=== PATIENT | male | born 1970 | race Caucasian/White ===

== ENCOUNTER 2017-06-20 15:29 | Inpatient (IN) | payer SELFPAY ==
[~2017-06-20] VITALS: Ht 167.6 cm; Wt 89.7 kg
[~2017-06-20 15:29] MED LIST: LEVE500 PO; LIOT25 PO
[2017-06-20 16:58] VITALS: BP 129/76; PULSE 78; RESP 20; TEMP 98; O2SAT 96
[2017-06-20] MEDS ORDERED: SODIUM CHLOR 0.9% 1000 ML INJ 1,000 ML IV SCH (17:19)
--- NOTE | 2017-06-20 17:35 | PD ---
HPI Chief Complaint: Alcohol/Drug Intoxication Time Seen by Provider: 17:15 Travel History International Travel<30 days: No Contact w/Intl Traveler<30days: No Traveled to known affect area: No History of Present Illness HPI 47-year-old male that presents to the ED for evaluation of possible alcohol intoxication. Patient is clearly intoxicated and states that he's been drinking a lot of alcohol today. Patient continues to tell me "Sorry boss "every time I ask him a question. He does not appear to be in acute distress. He is somewhat lethargic but easily arousable. Denies any other substance abuse. Denies any falls or injuries. He does have a history of subarachnoid hemorrhage in 2015. Patient does appear to have an abrasion to his right elbow but he does not know how he got this. He does not know if he hit his head and he is not really good historian as to what brought him here. From the report that was given by the ED nurse apparently he was found intoxicated but they really didn't give anymore history. Patient himself does not appear to be in acute distress. Again history is limited because of patient's intoxication. He denies any suicidal or homicidal ideation. PFSH Past Medical History Arthritis: No Blood Disorders: No Cancer: No Cardiovascular Problems: No Diminished Hearing: No Endocrine: No Genitourinary: No Hypertension: Yes Immune Disorder: No Musculoskeletal: Yes Neurologic: No Psychiatric: No Reproductive: No Respiratory: No Past Surgical History Abdominal Surgery: No AICD: No Arteriovenous Shunt: No Cardiac Surgery: No Ear Surgery: No Endocrine Surgery: No Eye Surgery: No Genitourinary Surgery: No Gynecologic Surgery: No Insulin Pump: No Joint Replacement: No Oral Surgery: No Pacemaker: No Thoracic Surgery: No Other Surgery: Yes Social History Alcohol Use: Yes Tobacco Use: No (quit 10 yrs ago) Substance Use: No Allergies-Medications (Allergen,Severity, Reaction): Coded Allergies: No Known Allergies (Verified , 06/20/17) Reported Meds & Prescriptions Reported Meds & Active Scripts Active No Active Prescriptions or Reported Medications Review of Systems ROS Limitations: Poor Historian Except as stated in HPI: all other systems reviewed are Neg Physical Exam Exam Limitations: Poor Historian Narrative GENERAL: SKIN: Warm and dry. HEAD: Atraumatic. Normocephalic. EYES: Pupils equal and round 4 mm reactive to light and accommodation. No scleral icterus. No injection or drainage. ENT: No nasal bleeding or discharge. Mucous membranes pink and moist.Tongue is midline. No uvula deviation. NECK: Trachea midline. No JVD. CARDIOVASCULAR: Regular rate and rhythm. No murmurs, S3, S4. RESPIRATORY: No accessory muscle use. Clear to auscultation. Breath sounds equal bilaterally. GASTROINTESTINAL: Abdomen soft, non-tender, nondistended. Hepatic and splenic margins not palpable. MUSCULOSKELETAL: Extremities without clubbing, cyanosis, or edema. No obvious deformities. Full range of motion of the upper and lower extremities bilaterally. 2+ pulses bilaterally. NEUROLOGICAL: Awake and alert. No obvious cranial nerve deficits. Motor grossly within normal limits. Five out of 5 muscle strength in the arms and legs. Normal speech. PSYCHIATRIC: Appropriate mood and affect; insight and judgment normal. Data Data Last Documented VS Vital Signs Date Time Temp Pulse Resp B/P (MAP) Pulse Ox O2 Delivery O2 Flow Rate FiO2 06/20/17 18:29 97.9 82 18 132/68 (89) 98 Room Air Orders Orders Complete Blood Count With Diff (06/20/17 17:18) Comprehensive Metabolic Panel (06/20/17 17:18) Ct Brain W/O Iv Contrast(Rout) (06/20/17 17:18) Alcohol (Ethanol) (06/20/17 17:18) Sodium Chlor 0.9% 1000 Ml Inj (Ns 1000 M (06/20/17 17:19) Coag Profile (06/20/17 18:44) Admit Order (Ed Use Only) (06/20/17 18:52) Labs Laboratory Tests Test 06/20/17 17:44 White Blood Count 11.2 TH/MM3 Red Blood Count 4.40 MIL/MM3 Hemoglobin 13.7 GM/DL Hematocrit 42.8 % Mean Corpuscular Volume 97.4 FL Mean Corpuscular Hemoglobin 31.2 PG Mean Corpuscular Hemoglobin Concent 32.0 % Red Cell Distribution Width 13.5 % Platelet Count 215 TH/MM3 Mean Platelet Volume 7.0 FL Neutrophils (%) (Auto) 83.4 % Lymphocytes (%) (Auto) 11.4 % Monocytes (%) (Auto) 4.1 % Eosinophils (%) (Auto) 0.7 % Basophils (%) (Auto) 0.4 % Neutrophils # (Auto) 9.3 TH/MM3 Lymphocytes # (Auto) 1.3 TH/MM3 Monocytes # (Auto) 0.5 TH/MM3 Eosinophils # (Auto) 0.1 TH/MM3 Basophils # (Auto) 0.0 TH/MM3 CBC Comment DIFF FINAL Differential Comment Blood Urea Nitrogen 11 MG/DL Creatinine 0.98 MG/DL Random Glucose 103 MG/DL Total Protein 7.8 GM/DL Albumin 3.7 GM/DL Calcium Level 7.3 MG/DL Alkaline Phosphatase 60 U/L Aspartate Amino Transf (AST/SGOT) 37 U/L Alanine Aminotransferase (ALT/SGPT) 28 U/L Total Bilirubin 0.2 MG/DL Sodium Level 143 MEQ/L Potassium Level 3.8 MEQ/L Chloride Level 110 MEQ/L Carbon Dioxide Level 24.2 MEQ/L Anion Gap 9 MEQ/L Estimat Glomerular Filtration Rate 81 ML/MIN Protein Corrected Calcium 7.0 MG/DL Ethyl Alcohol Level 393 MG/DL [facility] Medical Decision Making Medical Screen Exam Complete: Yes Emergency Medical Condition: Yes Medical Record Reviewed: Yes Interpretation(s) CBC & BMP Diagram 06/20/17 17:44 Total Protein 7.8, Albumin 3.7, Calcium Level 7.3 *L, Alkaline Phosphatase 60, Aspartate Amino Transf (AST/SGOT) 37, Alanine Aminotransferase (ALT/SGPT) 28, Total Bilirubin 0.[address] 06/20/17 1718 Signed Impressions: Service Date/Time: Friday, June 20, 2017 18:00 - CONCLUSION: Right frontal acute subdural and parenchymal hemorrhage. Generalized but mostly right cerebral hemisphere sulcal subarachnoid blood. No measurable midline shift. Freddy Romo MD Differential Diagnosis Alcohol intoxication versus head injury versus weakness versus chronic alcoholic Narrative Course 47-year-old male that presents to the ED for evaluation of possible alcohol intoxication. History is somewhat limited because of patient's intoxication and he is easily arousable. He does have a history of head bleed secondary to trauma. There is no really good history as to call patient was found and whether he had any fall. He does have a history to cranial hemorrhage. He appears to be neurovascular intact but again he is also intoxicated. At this time I recommend labs and imaging to make sure patient does not have any acute head injury. Patient was given IV fluids. Labs and imaging here showed what appears to be subdural hematoma with swelling or hemorrhage. Patient does not really have any signs of trauma to the head and appears to be oriented. He does not appear to have any neurological deficits but again his exam is difficult because he does also smells of alcohol and appears to be intoxicated. Labs also show elevated alcohol in the 390s. Case was discussed immediately with my attending Dr. Crawley evaluated the patient with me and recommends admission and neurosurgical consult. I spoke with Dr. Hair who agrees to consult on the patient and admit to waiter/waitress captain. Dr Garcia agrees to admit. Diagnosis Primary Impression: Intracerebral bleed due to trauma Qualified Codes: S06.369A - Traumatic hemorrhage of cerebrum, unspecified, with loss of consciousness of unspecified duration, initial encounter Additional Impression: Alcohol intoxication Qualified Codes: F10.920 - Alcohol use, unspecified with intoxication, uncomplicated Admitting Information Admitting Physician Requests: Admit Scripts No Active Prescriptions or Reported Meds Vasquez Lala Jun 20, 2017 17:35
[2017-06-20 17:58] LABS: AUTOMATED NEUTROPHIL # 9.3 TH/MM3 (1.8-7.7); BASOPHIL % 0.4 % (0.0-2.0); EOSINOPHIL # 0.1 TH/MM3 (0-0.4); EOSINOPHIL % 0.7 % (0.0-4.0); HEMATOCRIT 42.8 % (39.0-51.0); HEMO FLAGS DIFF FINAL; LYMPH % 11.4 % (9.0-44.0); LYMPHOCYTE # 1.3 TH/MM3 (1.0-4.8); MEAN CELL VOLUME 97.4 FL (80.0-100.0); MEAN CORPUSCULAR HEMOGLOBIN 31.2 PG (27.0-34.0); MONO % 4.1 % (0.0-8.0); NEUT % 83.4 % (16.0-70.0); PLATELET COUNT 215 TH/MM3 (150-450); RED CELL DISTRIBUTION WIDTH 13.5 % (11.6-17.2); WHITE BLOOD COUNT 11.2 TH/MM3 (4.0-11.0)
--- NOTE | 2017-06-20 18:13 | RADRPT ---
EXAM DATE/TIME: 06/20/2017 18:00 [facility] COMPARISON: CT BRAIN W/O CONTRAST, October 24, 2015, 12:41. INDICATIONS : Altered mental status, possible fall RADIATION DOSE: 31.25 CTDIvol (mGy) MEDICAL HISTORY : Hypertension. SURGICAL HISTORY : None. ENCOUNTER: Initial ACUITY: 1 day PAIN SCALE: Non-responsive LOCATION: Bilateral cranial TECHNIQUE: Multiple contiguous axial images were obtained of the head. Using automated exposure control and adj ustment of the mA and/or kV according to patient size, radiation dose was kept as low as reasonably a chievable to obtain optimal diagnostic quality images. DICOM format image data is available electro nically for review and comparison. FINDINGS: There is multifocal acute intracranial hemorrhage. There is a right frontal subdural hemorrhage that measures up to 7 mm in maximal thickness. There is patchy small foci of parenchymal hemorrhage of the right frontal lobe, mostly inferiorly and anteriorly. There is diffuse right cerebral hemisphere sul ci subarachnoid blood and also subarachnoid blood imaging the leaves of the falx and the tentorium. No measurable midline shift. No mass lesion seen. No evidence of an acute ischemic event. The skull i s intact. CONCLUSION: Right frontal acute subdural and parenchymal hemorrhage. Generalized but mostly right cerebral hemisp here sulcal subarachnoid blood. No measurable midline shift. Freddy Romo MD on June 20, 2017 at 18:08 Board Certified Radiologist. This report was verified electronically.
[2017-06-20 18:29] VITALS: BP 132/68; PULSE 82; RESP 18; TEMP 97.9; O2SAT 98
[2017-06-20 18:32] LABS: BICARBONATE 24.2 MEQ/L (21.0-32.0); POTASSIUM 3.8 MEQ/L (3.5-5.1); TOTAL BILIRUBIN ADULT 0.2 MG/DL (0.2-1.0)
--- NOTE | 2017-06-20 19:59 | PD.CONS ---
HPI Service Neurosurg Consult Requested By Frankie Garcia Reason for Consult TBI, SDH Primary Care Physician Unknown History of Present Illness This is a 47-year-old male presents due to alcohol intoxication and headache. he is obviously intoxicated and states that he's been drinking a lot of alcohol today. Patient continues to tell me "Sorry boss I have not been behaving " every time he is spoken to. He is very confused. No seizure activity. No tongue biting. No lacerations. No incontinence of stool or urine. He has a history of traumatic subarachnoid hemorrhage in 2015. Patient does appear to have an abrasion to his right elbow but he does not know how he got this. The CT scan of the head revealed traumatic subarachnoid, subdural and interfissural bleed. He is moving all 4 extremities without any focal deficit. There is no sensory loss. He denies neck pain or back pain. Neurosurgical consultation was requested Review of Systems Unobtainable patient's heavily intoxicated Past Family Social History Allergies: Coded Allergies: No Known Allergies (Verified , 06/20/17) Past Medical History Unobtainable patient's heavily intoxicated Prior head injury. Alcohol abuse Reported Medications Unobtainable patient's heavily intoxicated He denies taking any medications Active Ordered Medications Current Medications Sodium Chloride 1,000 ml @ 1,000 mls/hr Q1H IV Last administered on 06/20/17 18:28; Start 06/20/17 at 17:19; Stop 06/20/17 at 18:18; Status DC Sodium Chloride 1,000 ml @ 84 mls/hr [id number] IV Last administered on 08:56; Start 06/20/17 at 20:20 Sodium Chloride (NS Flush) 2 ml UNSCH PRN .XX FLUSH AFTER USING IV ACCESS; Start 06/20/17 at 20:30 Sodium Chloride (NS Flush) 2 ml BID .XX Last administered on 06/22/17 08:58; Start 06/20/17 at 21:00 Acetaminophen (Tylenol) 650 mg Q6H PRN PO PAIN 1-10 AND/OR FEVER >101F; Start 06/20/17 at 20:30 Morphine Sulfate (Morphine Inj) 2 mg Q2H PRN IV PAIN SCALE 6 TO 10; Start 06/20 at 20:30 Famotidine (Pepcid Inj) 20 mg Q12HR IV PUSH Last administered on 06/22/17 08: 57; Start 06/20/17 at 21:00 Ondansetron HCl (Zofran Inj) 4 mg Q6H PRN IV NAUSEA OR VOMITING Last administered on 06/22/17 08:57; Start 06/20/17 at 20:30 Albuterol/ Ipratropium (Duoneb Neb) 1 ampule Q2HR NEB PRN INH WHEEZING; Start 06/20/17 at 20:30 Miscellaneous Information 1 [id number] XX Last administered on 06/20/17 22:23; Start 06/20/17 at 20:30 Chlorhexidine Gluconate (Chlorhexidine 2% Cloth) 3 pack Taper DAILY@04 TOP Last administered on 06/22/17 04:00; Start 06/21/17 at 04:00; Stop 06/17/18 at 03:59 Chlorhexidine Gluconate (Chlorhexidine 2% Cloth) 3 pack UNSCH PRN TOP HYGIENIC CARE; Start 06/20/17 at 20:30 Senna/Docusate Sodium (Angela-Colace) 1 tab BID PO Last administered on 08:58; Start 06/20/17 at 21:00 Magnesium Hydroxide (Milk Of Magnesia Liq) 30 ml Q12H PRN PO MILD - MODERATE CONSTIPATION; Start 06/20/17 at 20:30 Sennosides (Senokot) 17.2 mg Q12H PRN PO MODERATE - SEVERE CONSTIPATION; Start 06/20/17 at 20:30 Bisacodyl (Dulcolax Supp) 10 mg DAILY PRN RECTAL SEVERE CONSITIPATION; Start at 20:30 Lactulose (Lactulose Liq) 30 ml DAILY PRN PO SEVERE CONSITIPATION; Start at 20:30 Potassium Chloride 100 ml @ 50 mls/hr Q2H PRN IV For Potassium 2.8 - 3.2 mEq/L ; Start 06/20/17 at 20:30 Potassium Chloride 100 ml @ 50 mls/hr Q2H PRN IV For Potassium 2.8 - 3.2 mEq/L ; Start 06/20/17 at 20:30 Potassium Bicarb/ Potassium Chloride (K-Lyte Cl Eff) 50 meq UNSCH PRN PO For Potassium 3.3 - 3.5 mEq/L; Start 06/20/17 at 20:30 Potassium Chloride 100 ml @ 25 mls/hr UNSCH PRN IV For Potassium 3.3 - 3.5 mEq /L; Start 06/20/17 at 20:30 Potassium Chloride 100 ml @ 50 mls/hr Q2H PRN IV For Potassium 3.3 - 3.5 mEq/L ; Start 06/20/17 at 20:30 Magnesium Sulfate 4 gm/Sodium Chloride 100 ml @ 50 mls/hr UNSCH PRN IV For Magnesium 0.9 - 1.1 mg/dL; Start 06/20/17 at 20:30 Magnesium Oxide (Mag-Ox) 800 mg UNSCH PRN PO For Magnesium 1.2 - 1.6 mg/dL; Start 06/20/17 at 20:30 Magnesium Sulfate 2 gm/Sodium Chloride 100 ml @ 50 mls/hr UNSCH PRN IV For Magnesium 1.2 - 1.6 mg/dL; Start 06/20/17 at 20:30 Potassium Phosphate (K-Phos) 2,000 mg Q4H PRN PO For Phosphorus < 2.5 mg/dL Last administered on 06/22/17t 13:07; Start 06/20/17 at 20:30 Sodium Phosphate 30 mmol/Sodium Chloride 250 ml @ 42 mls/hr UNSCH PRN IV For Phosphorus < 2.5 mg/dL; Start 06/20/17 at 20:30 Potassium Phosphate (K-Phos) 2,000 mg UNSCH PRN PO/TUBE SEE LABEL COMMENTS; Start 06/20/17 at 20:30 Potassium Phosphate 30 mmol/ Sodium Chloride 260 ml @ 42 mls/hr UNSCH PRN IV SEE LABEL COMMENTS; Start 06/20/17 at 20:30 Flumazenil (Romazicon Inj) 0.2 mg Q1M PRN IV PUSH SEE LABEL COMMENTS; Start at 20:45 Lorazepam (Ativan) 1 mg Q4H PRN PO CIWA 8 - 10; Start 06/20/17 at 20:45 Lorazepam (Ativan Inj) 1 mg Q4H PRN IV PUSH CIWA 8 - 10; Start 06/20/17 at 20: 45 Lorazepam (Ativan) 2 mg Q2H PRN PO CIWA 11-14; Start 06/20/17 at 20:45 Lorazepam (Ativan Inj) 2 mg Q2H PRN IV PUSH CIWA 11-14; Start 06/20/17 at 20:45 Lorazepam (Ativan Inj) 2 mg Q1H PRN IV PUSH CIWA 15-20; Start 06/20/17 at 20:45 Lorazepam (Ativan Inj) 2 mg Q15M PRN IV PUSH CIWA > 20; Start 06/20/17 at 20:45 Levetriacetam 500 mg/Sodium Chloride 105 ml @ 420 mls/hr Q12HR IV Last administered on 06/22/17 08:57; Start 06/20/17 at 21:00 Multivitamins 10 ml/Thiamine HCl 100 mg/Folic Acid 1 mg/Sodium Chloride 511.2 ml @ 125 mls/hr ONCE ONCE IV Last administered on 06/21/17 02:57; Start at 02:00; Stop 06/21/17 at 06:05; Status DC Calcium Gluconate 1 gm/Sodium Chloride 110 ml @ 110 mls/hr ONCE ONCE IV Last administered on 06/21/17 11:52; Start 06/21/17 at 10:45; Stop 06/21/17 at 11:44 ; Status DC Hydralazine HCl (Apresoline Inj) 10 mg Q4H PRN IV PUSH SBP>160, DBP>90 Last administered on 06/22/17 13:06; Start 06/22/17 at 10:45 Family History Unobtainable patient's heavily intoxicated Social History Unobtainable patient's heavily intoxicated Postoperative for at least alcohol abuse Physical Exam Vital Signs Vital Signs Date Time Temp Pulse Resp B/P (MAP) Pulse Ox O2 Delivery O2 Flow Rate FiO2 06/20/17 18:29 97.9 82 18 132/68 (89) 98 Room Air 06/20/17 16:58 98.0 78 20 129/76 (93) 96 Physical Exam The patient is alert, confused, oriented to self. Cranial nerve examination demonstrates the pupils to be equal, round, and reactive to light. Extra-ocular movements are intact with normal convergence. Facial motor function appears normal and symmetrical. Face sensation, hearing, visual thomas, and olfaction can not be assessed properly due to the patients condition. The patient has an intact corneal reflex and a gag reflex. Sternocleidomastoid and trapezius have normal and symmetrical strength. Other cranial nerves are intact. Neck is soft and supple. Cervical spine has a normal range of motion of the cervical spine without pain. There is no tenderness to palpation to the spinous processes or paraspinal muscles. Muscle testing reveals normal bulk and tone overall without rigidity, spasticity , fasciculations, or atrophy. Muscle strength is 5/5 in all muscle groups of both upper and lower extremities. Deep tendon reflexes are 1+ and symmetrical in the biceps, triceps, and brachioradialis, bilaterally, in the upper extremities. In the lower extremities , the patellar and Achilles are 1+, bilaterally. There is a bilateral plantar flexion response. Hoffmanns sign is negative. There is no clonus or other abnormal reflexes noted. Cerebellar examination is limited due to the patient condition, but no obvious deficits are noted. Laboratory Laboratory Tests Test 06/20/17 17:44 White Blood Count 11.2 Red Blood Count 4.40 Hemoglobin 13.7 Hematocrit 42.8 Mean Corpuscular Volume 97.4 Mean Corpuscular Hemoglobin 31.2 Mean Corpuscular Hemoglobin Concent 32.0 Red Cell Distribution Width 13.5 Platelet Count 215 Mean Platelet Volume 7.0 Neutrophils (%) (Auto) 83.4 Lymphocytes (%) (Auto) 11.4 Monocytes (%) (Auto) 4.1 Eosinophils (%) (Auto) 0.7 Basophils (%) (Auto) 0.4 Neutrophils # (Auto) 9.3 Lymphocytes # (Auto) 1.3 Monocytes # (Auto) 0.5 Eosinophils # (Auto) 0.1 Basophils # (Auto) 0.0 CBC Comment DIFF FINAL Differential Comment Blood Urea Nitrogen 11 Creatinine 0.98 Random Glucose 103 Total Protein 7.8 Albumin 3.7 Calcium Level 7.3 Alkaline Phosphatase 60 Aspartate Amino Transf (AST/SGOT) 37 Alanine Aminotransferase (ALT/SGPT) 28 Total Bilirubin 0.2 Sodium Level 143 Potassium Level 3.8 Chloride Level 110 Carbon Dioxide Level 24.2 Anion Gap 9 Estimat Glomerular Filtration Rate 81 Protein Corrected Calcium 7.0 Ethyl Alcohol Level 393 Result Diagram: 06/20/17174306/20/171743 Imaging Last [address] 06/20/17 1718 Signed Impressions: Service Date/Time: Tuesday, June 20, 2017 18:00 - CONCLUSION: Right frontal acute subdural and parenchymal hemorrhage. Generalized but mostly right cerebral hemisphere sulcal subarachnoid blood. No measurable midline shift. Freddy Romo MD Assessment and Plan Assessment and Plan - Traumatic subarachnoid small subdural - Coags within normal limits - Platelet count normal - Monitor neuro checks per ICU protocol - Management per neurosurgery - Keppra prophylaxis Attending Statement Neuro. neuro checks in a serial fashion.Continue nonoperative treatment Pulmonary. pulmonary toilette, nasotracheal suction, and breathing treatments with nebulizers. Eval PT and OT ETOH. Thiamine, folic acid, multivitamins. Benzodiazepines as needed Hypertension Hydralazine and labetalol when necessary to keep SBP less than 160 Nutrition. Tolerating Oral diet Renal. monitor closely urine output, BUN and creatinine Endocrine. Monitor serial Acu checks and SSI as needed in detail ID monitor for signs of infection Protonix for stress ulcer prophylaxis Arsalan amee and SCD's for DVT prophylaxis Alex Hair MD Jun 20, 2017 19:59
[2017-06-20 20:19] VITALS: BP 139/72; PULSE 85; RESP 18; O2SAT 95
--- NOTE | 2017-06-20 20:23 | HHI.HP ---
HPI Service Critical Care Medicine Primary Care Physician Unknown Admission Diagnosis acute subarachnoid bleed, alcohol intoxication Diagnosis: Travel History International Travel<30 Days: No Contact w/Intl Traveler <30 Da: No Traveled to Known Affected Are: No History of Present Illness 47-year-old male presents due to alcohol intoxication and headache. Patient is clearly intoxicated and states that he's been drinking a lot of alcohol today. Patient continues to tell me "Sorry boss I have not been behaving today "every time I ask him a question. 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 Patient does appear to have an abrasion to his right elbow but he does not know how he got this. The CAT scan of the head revealed traumatic subarachnoid, subdural and interfissural bleed. Review of Systems ROS Unobtainable patient's heavily intoxicated Past Family Social History Allergies: Coded Allergies: No Known Allergies (Verified , 06/20/17) Past Medical History History of traumatic subarachnoid humeri chin 2014 Alcohol abuse Past Surgical History None Reported Medications Reported Meds & Active Scripts Active No Active Prescriptions or Reported Medications Active Ordered Medications Current Medications Medications (Trade) Dose Ordered Sig/Carlene Route PRN Reason Start Time Stop Time Status Last Admin Dose Admin Sodium Chloride 1,000 ml @ 84 mls/hr [id number] IV 06/20/17 20:20 06/20/17 21:36 Sodium Chloride (NS Flush) 2 ml UNSCH PRN .XX FLUSH AFTER USING IV ACCESS 06/20/17 20:30 Sodium Chloride (NS Flush) 2 ml BID .XX 06/20/17 21:00 06/20/17 21:36 Acetaminophen (Tylenol) 650 mg Q6H PRN PO PAIN 1-10 AND/OR FEVER >101F 06/20/17 20:30 Morphine Sulfate (Morphine Inj) 2 mg Q2H PRN IV PAIN SCALE 6 TO 10 06/20/17 20:30 Famotidine (Pepcid Inj) 20 mg Q12HR IV PUSH 06/20/17 21:00 06/20/17 21:37 Ondansetron HCl (Zofran Inj) 4 mg Q6H PRN IV NAUSEA OR VOMITING 06/20/17 20:30 Albuterol/ Ipratropium (Duoneb Neb) 1 ampule Q2HR NEB PRN INH WHEEZING 06/20/17 20:30 Miscellaneous Information 1 Q361D XX 06/20/17 20:30 06/20/17 22:23 Chlorhexidine Gluconate (Chlorhexidine 2% Cloth) 3 pack Taper DAILY@04 TOP 06/21/17 04:00 06/17/18 03:59 06/20/17 22:23 Chlorhexidine Gluconate (Chlorhexidine 2% Cloth) 3 pack UNSCH PRN TOP HYGIENIC CARE 06/20/17 20:30 Senna/Docusate Sodium (Angela-Colace) 1 tab BID PO 06/20/17 21:00 06/20/17 21:37 Magnesium Hydroxide (Milk Of Magnesia Liq) 30 ml Q12H PRN PO MILD - MODERATE CONSTIPATION 06/20/17 20:30 Sennosides (Senokot) 17.2 mg Q12H PRN PO MODERATE - SEVERE CONSTIPATION 06/20/17 20:30 Bisacodyl (Dulcolax Supp) 10 mg DAILY PRN RECTAL SEVERE CONSITIPATION 06/20/17 20:30 Lactulose (Lactulose Liq) 30 ml DAILY PRN PO SEVERE CONSITIPATION 06/20/17 20:30 Potassium Chloride 100 ml @ 50 mls/hr Q2H PRN IV For Potassium 2.8 - 3.2 mEq/L 06/20/17 20:30 Potassium Chloride 100 ml @ 50 mls/hr Q2H PRN IV For Potassium 2.8 - 3.2 mEq/L 06/20/17 20:30 Potassium Bicarb/ Potassium Chloride (K-Lyte Cl Eff) 50 meq UNSCH PRN PO For Potassium 3.3 - 3.5 mEq/L 06/20/17 20:30 Potassium Chloride 100 ml @ 25 mls/hr UNSCH PRN IV For Potassium 3.3 - 3.5 mEq/L 06/20/17 20:30 Potassium Chloride 100 ml @ 50 mls/hr Q2H PRN IV For Potassium 3.3 - 3.5 mEq/L 06/20/17 20:30 Magnesium Sulfate 4 gm/Sodium Chloride 100 ml @ 50 mls/hr UNSCH PRN IV For Magnesium 0.9 - 1.1 mg/dL 06/20/17 20:30 Magnesium Oxide (Mag-Ox) 800 mg UNSCH PRN PO For Magnesium 1.2 - 1.6 mg/dL 06/20/17 20:30 Magnesium Sulfate 2 gm/Sodium Chloride 100 ml @ 50 mls/hr UNSCH PRN IV For Magnesium 1.2 - 1.6 mg/dL 06/20/17 20:30 Potassium Phosphate (K-Phos) 2,000 mg Q4H PRN PO For Phosphorus < 2.5 mg/dL 06/20/17 20:30 Sodium Phosphate 30 mmol/Sodium Chloride 250 ml @ 42 mls/hr UNSCH PRN IV For Phosphorus < 2.5 mg/dL 06/20/17 20:30 Potassium Phosphate (K-Phos) 2,000 mg UNSCH PRN PO/TUBE SEE LABEL COMMENTS 06/20/17 20:30 Potassium Phosphate 30 mmol/ Sodium Chloride 260 ml @ 42 mls/hr UNSCH PRN IV SEE LABEL COMMENTS 06/20/17 20:30 Flumazenil (Romazicon Inj) 0.2 mg Q1M PRN IV PUSH SEE LABEL COMMENTS 06/20/17 20:45 Lorazepam (Ativan) 1 mg Q4H PRN PO CIWA 8 - 10 06/20/17 20:45 Lorazepam (Ativan Inj) 1 mg Q4H PRN IV PUSH CIWA 8 - 10 06/20/17 20:45 Lorazepam (Ativan) 2 mg Q2H PRN PO CIWA 11-14 06/20/17 20:45 Lorazepam (Ativan Inj) 2 mg Q2H PRN IV PUSH CIWA 11-14 06/20/17 20:45 Lorazepam (Ativan Inj) 2 mg Q1H PRN IV PUSH CIWA 15-20 06/20/17 20:45 Lorazepam (Ativan Inj) 2 mg Q15M PRN IV PUSH CIWA > 20 06/20/17 20:45 Levetriacetam 500 mg/Sodium Chloride 105 ml @ 420 mls/hr Q12HR IV 06/20/17 21:00 06/20/17 21:36 Family History No family history of early coronary artery disease or malignancy Social History Drinks alcohol heavily, quit smoking 10 years ago, denies illicit drug abuse Physical Exam Vital Signs Vital Signs Date Time Temp Pulse Resp B/P (MAP) Pulse Ox O2 Delivery O2 Flow Rate FiO2 06/20/17 20:19 85 18 139/72 (94) 95 06/20/17 20:19 87 18 96 06/20/17 18:29 97.9 82 18 132/68 (89) 98 Room Air 06/20/17 16:58 98.0 78 20 129/76 (93) 96 Physical Exam GENERAL: Well-nourished, well-developed patient, heavily intoxicated patient. SKIN: Warm and dry. HEAD: Normocephalic. EYES: No scleral icterus. No injection or drainage. NECK: Supple, trachea midline. No JVD or lymphadenopathy. CARDIOVASCULAR: Regular rate and rhythm without murmurs, gallops, or rubs. RESPIRATORY: Breath sounds equal bilaterally. No accessory muscle use. GASTROINTESTINAL: Abdomen soft, non-tender, nondistended. MUSCULOSKELETAL: No cyanosis, or edema. BACK: Nontender without obvious deformity. NEURO EXAM: GCS: M6 V4 E4 Mental Status: The patient is alert and oriented to person, place, and time with normal speech. Cranial Nerves: Visual acuity intact bilaterally. Visual thomas normal in all quadrants. Pupils are round, reactive to light. Extraocular movements are intact without ptosis. Hearing is normal bilaterally. Voice is normal. Tongue protrudes midline and moves symmetrically. Reflexes: Biceps, patellar, and Achilles are 2/4 bilaterally. No clonus. Sensation: Sensation is intact bilaterally to pain and light touch. Two-point discrimination is intact. Motor: Good muscle tone. Strength is 5/5 bilaterally. Laboratory Laboratory Tests Test 06/20/17 17:44 White Blood Count 11.2 Red Blood Count 4.40 Hemoglobin 13.7 Hematocrit 42.8 Mean Corpuscular Volume 97.4 Mean Corpuscular Hemoglobin 31.2 Mean Corpuscular Hemoglobin Concent 32.0 Red Cell Distribution Width 13.5 Platelet Count 215 Mean Platelet Volume 7.0 Neutrophils (%) (Auto) 83.4 Lymphocytes (%) (Auto) 11.4 Monocytes (%) (Auto) 4.1 Eosinophils (%) (Auto) 0.7 Basophils (%) (Auto) 0.4 Neutrophils # (Auto) 9.3 Lymphocytes # (Auto) 1.3 Monocytes # (Auto) 0.5 Eosinophils # (Auto) 0.1 Basophils # (Auto) 0.0 CBC Comment DIFF FINAL Differential Comment Blood Urea Nitrogen 11 Creatinine 0.98 Random Glucose 103 Total Protein 7.8 Albumin 3.7 Calcium Level 7.3 Alkaline Phosphatase 60 Aspartate Amino Transf (AST/SGOT) 37 Alanine Aminotransferase (ALT/SGPT) 28 Total Bilirubin 0.2 Sodium Level 143 Potassium Level 3.8 Chloride Level 110 Carbon Dioxide Level 24.2 Anion Gap 9 Estimat Glomerular Filtration Rate 81 Protein Corrected Calcium 7.0 Ethyl Alcohol Level 393 Result Diagram: 06/20/17 1744 06/20/17 1744 Imaging Last [address] 06/20/17 1718 Signed Impressions: Service Date/Time: Tuesday, June 20, 2017 18:00 - CONCLUSION: Right frontal acute subdural and parenchymal hemorrhage. Generalized but mostly right cerebral hemisphere sulcal subarachnoid blood. No measurable midline shift. MD Sandra Layne VTE Risk Assessment Caprini VTE Risk Assessment: No/Low Risk (score <= 1) Caprini Risk Assessment Model Point Value = 1 Point Value = 2 Point Value = 3 Point Value = 5 Age 41-60 Minor surgery BMI > 25 kg/m2 Swollen legs Varicose veins or History of unexplained or recurrent spontaneous Oral contraceptives or hormone replacement Sepsis (< 1 month) Serious lung disease, including pneumonia (< 1 month) Abnormal pulmonary function Acute myocardial infarction Congestive heart failure (< 1 month) History of inflammatory bowel disease Medical patient at bed rest Age 61-74 Arthroscopic surgery Major open surgery (> 45 min) Laparoscopic surgery (> 45 min) Malignancy Confined to bed (> 72 hours) Immobilizing plaster cast Central venous access Age >= 75 History of VTE Family history of VTE Factor V Leiden Prothrombin [id number] Lupus anticoagulant Anticardiolipin antibodies Elevated serum homocysteine Heparin-induced thrombocytopenia Other congenital or acquired thrombophilia Stroke (< 1 month) Elective arthroplasty Hip, pelvis, or leg fracture Acute spinal cord injury (< 1 month) Prophylaxis Regimen Total Risk Factor Score Risk Level Prophylaxis Regimen 0-1 Low Early ambulation 2 Moderate Order ONE of the following: *Sequential Compression Device (SCD) *Heparin 5000 units SQ BID 3-4 Higher Order ONE of the following medications: *Heparin 5000 units SQ TID *Enoxaparin/Lovenox 40 mg SQ daily (WT < 150 kg, CrCl > 30 mL/min) *Enoxaparin/Lovenox 30 mg SQ daily (WT < 150 kg, CrCl > 10-29 mL/min) *Enoxaparin/Lovenox 30 mg SQ BID (WT < 150 kg, CrCl > 30 mL/min) AND/OR *Sequential Compression Device (SCD) 5 or more Highest Order ONE of the following medications: *Heparin 5000 units SQ TID (Preferred with Epidurals) *Enoxaparin/Lovenox 40 mg SQ daily (WT < 150 kg, CrCl > 30 mL/min) *Enoxaparin/Lovenox 30 mg SQ daily (WT < 150 kg, CrCl > 10-29 mL/min) *Enoxaparin/Lovenox 30 mg SQ BID (WT < 150 kg, CrCl > 30 mL/min) AND *Sequential Compression Device (SCD) Assessment and Plan Assessment and Plan Intracranial bleed - Traumatic subarachnoid small subdural - Coags within normal limits - Platelet count normal - Monitor neuro checks per ICU protocol - Management per neurosurgery - Keppra prophylaxis Alcohol intoxication - Monitor for withdrawal - CIWA protocol - Thiamine folate and multivitamins IV Hypertension - Hydralazine and labetalol when necessary to keep SBP less than 160 DVT GI prophylaxis - Teds SCDs - No pharmacological DVT prophylaxis due to acute ICH - Pepcid - Early aggressive mobilization - Regular diet Critical Care: The total critical care time was 35 minutes. Time to perform other separately billable procedures was not included in the critical care time. Frankei Garcia MD Jun 20, 2017 8:23 pm
[2017-06-20] MEDS ORDERED: POTASSIUM CHLORIDE 25 MEQ EFFERVESCENT TAB PO PRN (20:30)
[2017-06-20] MEDS ORDERED: POTASSIUM PHOSPHATE INJ 30 MMOL in SODIUM CHLOR 0.9% 250 ML INJ 250 ML IV PRN (20:30)
[2017-06-20] MEDS ORDERED: CHLORHEXIDINE GLUCONATE 2 % 1 PACK (2 CLOTHS) TOP PRN (20:30)
[2017-06-20] MEDS ORDERED: RESP: ALBUTEROL 2.5 MG/IPRATROPIUM 0.5 MG NEB (PRN) INH (20:30)
[2017-06-20] MEDS ORDERED: SODIUM CHLORIDE 0.9% FLUSH 10 ML FLUSH PRN (20:30)
[2017-06-20] MEDS ORDERED: BISACODYL 10 MG SUPP RECTAL PRN (20:30)
[2017-06-20] MEDS ORDERED: SODIUM PHOSPHATE INJ 30 MMOL in SODIUM CHLOR 0.9% 250 ML INJ 240 ML IV PRN (20:30)
[2017-06-20] MEDS ORDERED: MAGNESIUM SULFATE INJ 4 GM in SODIUM CHLORIDE 0.9% INJ 92 ML IV PRN (20:30)
[2017-06-20] MEDS ORDERED: MISCELLANEOUS NURSING INFORMATION XX SCH (20:30)
[2017-06-20] MEDS ORDERED: POTASSIUM CHLOR 20 MEQ PREMIX 100 ML IV PRN ×2 (20:30)
[2017-06-20] MEDS ORDERED: SENNOSIDES 8.6 MG TAB PO PRN (20:30)
[2017-06-20] MEDS ORDERED: MAGNESIUM OXIDE 400 MG TAB PO PRN (20:30)
[2017-06-20] MEDS ORDERED: POTASSIUM CHLOR 40 MEQ PREMIX 100 ML IV PRN ×2 (20:30)
[2017-06-20] MEDS ORDERED: LACTULOSE SYRUP 20 GM/30 ML CUP PO PRN (20:30)
[2017-06-20] MEDS ORDERED: MAGNESIUM SULFATE INJ 2 GM in SODIUM CHLORIDE 0.9% INJ 96 ML IV PRN (20:30)
[2017-06-20] MEDS ORDERED: POTASSIUM PHOSPHATE MONOBASIC 500 MG TAB PO/TUBE PRN (20:30)
[2017-06-20] MEDS ORDERED: ACETAMINOPHEN 325 MG TAB PO PRN (20:30)
[2017-06-20] MEDS ORDERED: MAGNESIUM HYDROXIDE SUSP 30 ML CUP PO PRN (20:30)
[2017-06-20] MEDS ORDERED: LORazepam 2 MG TAB PO PRN (20:45)
[2017-06-20] MEDS ORDERED: LORazepam 2 MG/ML VIAL IV PUSH PRN ×4 (20:45)
[2017-06-20] MEDS ORDERED: FLUMAZENIL 0.5 MG/5 ML VIAL IV PUSH PRN (20:45)
[2017-06-20 21:11] VITALS: O2SAT 96
[2017-06-20] MEDS: SODIUM CHLORIDE 0.9% FLUSH 10 ML FLUSH SCH (21:36)
[2017-06-20] MEDS: SODIUM CHLOR 0.9% 1000 ML INJ 1,000 ML IV SCH (21:36)
[2017-06-20] MEDS: levETIRAcetam INJ 500 MG in SODIUM CHLORIDE 0.9% INJ 100 ML IV SCH (21:36)
[2017-06-20] MEDS: DOCUSATE SODIUM 50 MG/SENNA 8.6 MG TAB PO SCH (21:37)
[2017-06-20] MEDS: FAMOTIDINE 20 MG/2 ML VIAL IV PUSH SCH (21:37)
[2017-06-20 21:40] LABS: APTT (PATIENT) 25.9 SEC (24.3-30.1); PROTHROMBIN TIME - PATIENT 10.8 SEC (9.8-11.6)
[2017-06-20 21:49] LABS: CKMB 7.9 NG/ML (0.5-3.6)
[2017-06-20 22:00] VITALS: PULSE 79
[2017-06-20] MEDS: CHLORHEXIDINE GLUCONATE 2 % 1 PACK (2 CLOTHS) TOP SCH (22:23)
[2017-06-21] VITALS (12 sets, daily range): BP systolic 101–151; BP diastolic 51–74; PULSE 50–80; RESP 14–22; TEMP 98–98.8; O2SAT 96–97
[2017-06-21] MEDS ORDERED: MULTIVITAMIN INJ 10 ML, THIAMINE INJ 100 MG, FOLIC ACID INJ 1 MG in SODIUM CHLORID 0.9%... IV ONE (02:00)
[2017-06-21 05:27] LABS: PROTHROMBIN TIME - PATIENT 11.2 SEC (9.8-11.6)
[2017-06-21 05:41] LABS: AUTOMATED NEUTROPHIL # 6.7 TH/MM3 (1.8-7.7); BASOPHIL % 0.5 % (0.0-2.0); EOSINOPHIL % 0.1 % (0.0-4.0); HEMATOCRIT 37.4 % (39.0-51.0); HEMO FLAGS DIFF FINAL; LYMPH % 15.1 % (9.0-44.0); LYMPHOCYTE # 1.3 TH/MM3 (1.0-4.8); MEAN CELL VOLUME 96.9 FL (80.0-100.0); MEAN CORPUSCULAR HEMOGLOBIN 33.2 PG (27.0-34.0); MEAN CORPUSCULAR HGB CONC 34.2 % (32.0-36.0); MONO % 6.1 % (0.0-8.0); NEUT % 78.2 % (16.0-70.0); PLATELET COUNT 178 TH/MM3 (150-450); RED BLOOD COUNT 3.86 MIL/MM3 (4.50-5.90); RED CELL DISTRIBUTION WIDTH 13.4 % (11.6-17.2); WHITE BLOOD COUNT 8.6 TH/MM3 (4.0-11.0)
[2017-06-21 05:52] LABS: MAGNESIUM 1.8 MG/DL (1.5-2.5); POTASSIUM 3.5 MEQ/L (3.5-5.1)
[2017-06-21 05:55] LABS: TOTAL BILIRUBIN ADULT 0.4 MG/DL (0.2-1.0)
--- NOTE | 2017-06-21 06:55 | HHI.NSPN ---
(Elmo Wall) History Chief Complaint: No complaints. Right frontal SDH, parenchymal hemorrhage and SAH. (Elmo Wall) Interval History 06/21/17: Pt is awake this morning. He denies any headache, nausea or vomiting. No neck or low back pain. No chest or abdominal pain. He was reportedly very intoxicated when he came in and was not able to provide a good history. 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 He remembers drinking but doesn't recall anything about what happened to him. He denies any medical conditions such as epilepsy, cardiac disease, or syncope. (Elmo Wall) Review of Systems General: Negative for: fever, chills, insomnia Respiratory: Negative for: shortness of breath, cough, sputum Cardiovascular: Negative for: chest pain Gastrointestinal: Negative for: nausea, vomitting, diarrhea, constipation ( Elmo Wall) Exam Results Vital Signs Date Time Temp Pulse Resp B/P (MAP) Pulse Ox O2 Delivery O2 Flow Rate FiO2 06/21/17 06:00 80 06/21/17 04:00 98.4 14 105/54 (71) 96 06/20/17 18:29 Room Air Intake and Output 06/21/17 06/21/17 06/22/17 08:00 16:00 00:00 Intake Total 1339 ml Balance 1339 ml (Elmo Wall) Physical Examination General: Pt awake and alert. He is resting comfortably in bed and cooperative for exam. Resp: CTA bilaterally Heart: NSR no murmurs Abd: Soft positive bs Skin: No cyanosis or erythema Muscle: 5/5 strength in upper and lower extremities. Neuro: Pt awake and alert. Pupils 3mm bilaterally reactive bilaterally. Follows commands well. Speech is clear and appropriate. Sensation intact in face and extremities. EOMs intact. Face symmetric. (Elmo Wall) Physical Examination The patient is alert, awakemild . Still intermitent confusion Cranial nerve examination: pupils to be equal, round and reactive to light. Extra-ocular movements are intact. Facial motor and sensory function are normal and symmetrical. Gross hearing appears intact. Sternocleidomastoid and trapezius muscles are symmetrical. Other cranial nerves are intact. Neck is soft and supple with a good range of motion without pain. Muscle strength is normal in all muscle groups of both upper and lower extremities. Sensory examination is intact to light touch and pin prick in both the upper and lower extremities. Deep tendon reflexes are symmetrical in both upper and lower extremities. There is a bilateral plantar flexion response. Cerebellar examination is unremarkable, without deficits. (Alex Hair MD) Lab, Micro, Other Results Last Impressions Head CT 06/20/171717 Signed Impressions: Service Date/Time: Tuesday, June 20, 2017 18:00 - CONCLUSION: Right frontal acute subdural and parenchymal hemorrhage. Generalized but mostly right cerebral hemisphere sulcal subarachnoid blood. No measurable midline shift. Freddy Romo MD Laboratory Tests Test 06/20/17 17:44 06/20/17 21:15 06/21/17 02:00 06/21/17 04:52 White Blood Count 11.2 TH/MM3 8.6 TH/MM3 Red Blood Count 4.40 MIL/MM3 3.86 MIL/MM3 Hemoglobin 13.7 GM/DL 12.8 GM/DL Hematocrit 42.8 % 37.4 % Mean Corpuscular Volume 97.4 FL 96.9 FL Mean Corpuscular Hemoglobin 31.2 PG 33.2 PG Mean Corpuscular Hemoglobin Concent 32.0 % 34.2 % Red Cell Distribution Width 13.5 % 13.4 % Platelet Count 215 TH/MM3 178 TH/MM3 Mean Platelet Volume 7.0 FL 7.6 FL Neutrophils (%) (Auto) 83.4 % 78.2 % Lymphocytes (%) (Auto) 11.4 % 15.1 % Monocytes (%) (Auto) 4.1 % 6.1 % Eosinophils (%) (Auto) 0.7 % 0.1 % Basophils (%) (Auto) 0.4 % 0.5 % Neutrophils # (Auto) 9.3 TH/MM3 6.7 TH/MM3 Lymphocytes # (Auto) 1.3 TH/MM3 1.3 TH/MM3 Monocytes # (Auto) 0.5 TH/MM3 0.5 TH/MM3 Eosinophils # (Auto) 0.1 TH/MM3 0.0 TH/MM3 Basophils # (Auto) 0.0 TH/MM3 0.0 TH/MM3 CBC Comment DIFF FINAL DIFF FINAL Differential Comment Blood Urea Nitrogen 11 MG/DL 9 MG/DL Creatinine 0.98 MG/DL 0.82 MG/DL Random Glucose 103 MG/DL 113 MG/DL Total Protein 7.8 GM/DL 7.2 GM/DL Albumin 3.7 GM/DL 3.2 GM/DL Calcium Level 7.3 MG/DL 7.0 MG/DL Alkaline Phosphatase 60 U/L 49 U/L Aspartate Amino Transf (AST/SGOT) 37 U/L 28 U/L Alanine Aminotransferase (ALT/SGPT) 28 U/L 25 U/L Total Bilirubin 0.2 MG/DL 0.4 MG/DL Sodium Level 143 MEQ/L 142 MEQ/L Potassium Level 3.8 MEQ/L 3.5 MEQ/L Chloride Level 110 MEQ/L 108 MEQ/L Carbon Dioxide Level 24.2 MEQ/L 20.0 MEQ/L Anion Gap 9 MEQ/L 14 MEQ/L Estimat Glomerular Filtration Rate 81 ML/MIN 100 ML/MIN Protein Corrected Calcium 7.0 MG/DL 7.0 MG/DL Phosphorus Level 2.0 MG/DL 1.9 MG/DL Total Creatine Kinase 645 U/L Creatine Kinase MB 7.9 NG/ML Creatine Kinase MB % 1.2 % Ethyl Alcohol Level 393 MG/DL Prothrombin Time 10.8 SEC 11.2 SEC Prothromb Time International Ratio 1.0 RATIO 1.0 RATIO Activated Partial Thromboplast Time 25.9 SEC Ammonia LESS THAN 10 MCMOL/L Magnesium Level 1.8 MG/DL (Elmo Wall) Lab, Micro, Other Results Current Medications Sodium Chloride 1,000 ml @ 1,000 mls/hr Q1H IV Last administered on 06/20/17 18:28; Start 06/20/17 at 17:19; Stop 06/20/17 at 18:18; Status DC Sodium Chloride 1,000 ml @ 84 mls/hr [id number] IV Last administered on 11:08; Start 06/20/17 at 20:20 Sodium Chloride (NS Flush) 2 ml UNSCH PRN .XX FLUSH AFTER USING IV ACCESS; Start 06/20/17 at 20:30 Sodium Chloride (NS Flush) 2 ml BID .XX Last administered on 06/21/17 11:08; Start 06/20/17 at 21:00 Acetaminophen (Tylenol) 650 mg Q6H PRN PO PAIN 1-10 AND/OR FEVER >101F; Start 06/20/17 at 20:30 Morphine Sulfate (Morphine Inj) 2 mg Q2H PRN IV PAIN SCALE 6 TO 10; Start 06/20 at 20:30 Famotidine (Pepcid Inj) 20 mg Q12HR IV PUSH Last administered on 06/21/17 11: 09; Start 06/20/17 at 21:00 Ondansetron HCl (Zofran Inj) 4 mg Q6H PRN IV NAUSEA OR VOMITING Last administered on 06/21/17 12:56; Start 06/20/17 at 20:30 Albuterol/ Ipratropium (Duoneb Neb) 1 ampule Q2HR NEB PRN INH WHEEZING; Start 06/20/17 at 20:30 Miscellaneous Information 1 Q361D XX Last administered on 06/20/17 22:23; Start 06/20/17 at 20:30 Chlorhexidine Gluconate (Chlorhexidine 2% Cloth) 3 pack Taper DAILY@04 TOP Last administered on 06/20/17 22:23; Start 06/21/17 at 04:00; Stop 06/17/18 at 03:59 Chlorhexidine Gluconate (Chlorhexidine 2% Cloth) 3 pack UNSCH PRN TOP HYGIENIC CARE; Start 06/20/17 at 20:30 Senna/Docusate Sodium (Angela-Colace) 1 tab BID PO Last administered on 11:09; Start 06/20/17 at 21:00 Magnesium Hydroxide (Milk Of Magnesia Liq) 30 ml Q12H PRN PO MILD - MODERATE CONSTIPATION; Start 06/20/17 at 20:30 Sennosides (Senokot) 17.2 mg Q12H PRN PO MODERATE - SEVERE CONSTIPATION; Start 06/20/17 at 20:30 Bisacodyl (Dulcolax Supp) 10 mg DAILY PRN RECTAL SEVERE CONSITIPATION; Start at 20:30 Lactulose (Lactulose Liq) 30 ml DAILY PRN PO SEVERE CONSITIPATION; Start at 20:30 Potassium Chloride 100 ml @ 50 mls/hr Q2H PRN IV For Potassium 2.8 - 3.2 mEq/L ; Start 06/20/17 at 20:30 Potassium Chloride 100 ml @ 50 mls/hr Q2H PRN IV For Potassium 2.8 - 3.2 mEq/L ; Start 06/20/17 at 20:30 Potassium Bicarb/ Potassium Chloride (K-Lyte Cl Eff) 50 meq UNSCH PRN PO For Potassium 3.3 - 3.5 mEq/L; Start 06/20/17 at 20:30 Potassium Chloride 100 ml @ 25 mls/hr UNSCH PRN IV For Potassium 3.3 - 3.5 mEq /L; Start 06/20/17 at 20:30 Potassium Chloride 100 ml @ 50 mls/hr Q2H PRN IV For Potassium 3.3 - 3.5 mEq/L ; Start 06/20/17 at 20:30 Magnesium Sulfate 4 gm/Sodium Chloride 100 ml @ 50 mls/hr UNSCH PRN IV For Magnesium 0.9 - 1.1 mg/dL; Start 06/20/17 at 20:30 Magnesium Oxide (Mag-Ox) 800 mg UNSCH PRN PO For Magnesium 1.2 - 1.6 mg/dL; Start 06/20/17 at 20:30 Magnesium Sulfate 2 gm/Sodium Chloride 100 ml @ 50 mls/hr UNSCH PRN IV For Magnesium 1.2 - 1.6 mg/dL; Start 06/20/17 at 20:30 Potassium Phosphate (K-Phos) 2,000 mg Q4H PRN PO For Phosphorus < 2.5 mg/dL Last administered on 06/21/17t 11:09; Start 06/20/17 at 20:30 Sodium Phosphate 30 mmol/Sodium Chloride 250 ml @ 42 mls/hr UNSCH PRN IV For Phosphorus < 2.5 mg/dL; Start 06/20/17 at 20:30 Potassium Phosphate (K-Phos) 2,000 mg UNSCH PRN PO/TUBE SEE LABEL COMMENTS; Start 06/20/17 at 20:30 Potassium Phosphate 30 mmol/ Sodium Chloride 260 ml @ 42 mls/hr UNSCH PRN IV SEE LABEL COMMENTS; Start 06/20/17 at 20:30 Flumazenil (Romazicon Inj) 0.2 mg Q1M PRN IV PUSH SEE LABEL COMMENTS; Start at 20:45 Lorazepam (Ativan) 1 mg Q4H PRN PO CIWA 8 - 10; Start 06/20/17 at 20:45 Lorazepam (Ativan Inj) 1 mg Q4H PRN IV PUSH CIWA 8 - 10; Start 06/20/17 at 20: 45 Lorazepam (Ativan) 2 mg Q2H PRN PO CIWA 11-14; Start 06/20/17 at 20:45 Lorazepam (Ativan Inj) 2 mg Q2H PRN IV PUSH CIWA 11-14; Start 06/20/17 at 20:45 Lorazepam (Ativan Inj) 2 mg Q1H PRN IV PUSH CIWA 15-20; Start 06/20/17 at 20:45 Lorazepam (Ativan Inj) 2 mg Q15M PRN IV PUSH CIWA > 20; Start 06/20/17 at 20:45 Levetriacetam 500 mg/Sodium Chloride 105 ml @ 420 mls/hr Q12HR IV Last administered on 06/21/17 11:08; Start 06/20/17 at 21:00 Multivitamins 10 ml/Thiamine HCl 100 mg/Folic Acid 1 mg/Sodium Chloride 511.2 ml @ 125 mls/hr ONCE ONCE IV Last administered on 06/21/17 02:57; Start at 02:00; Stop 06/21/17 at 06:05; Status DC Calcium Gluconate 1 gm/Sodium Chloride 110 ml @ 110 mls/hr ONCE ONCE IV Last administered on 06/21/17 11:52; Start 06/21/17 at 10:45; Stop 06/21/17 at 11:44 ; Status DC (Alex Hair MD) Medical Decision Making Impression and Plan A: 47 y/o M with TBI a right frontal acute subdural and parenchymal hemorrhage. Right cerebral hemisphere subarachnoid hemorrhage. Alcohol intoxication P: Continue with close Neuro checks Continue to monitor for alcohol withdrawal Pt will need a follow up CT head today to ensure no progression of the SDH or intraparenchymal hemorrhage. Continue with Keppra for seizure prophylaxis. (Elmo Wall) Impression and Plan Last Impressions Head CT 06/21/17 0000 Signed Impressions: Service Date/Time: Wednesday, June 21, 2017 12:36 - CONCLUSION: No significant change in the intracranial hemorrhage, mostly right frontal subdural and intraparenchymal. Slightly increased right frontal lobe cerebral edema and now with 2 mm of midline shift present. Freddy Romo MD (Alex Hair MD) Attending Statement Neuro. Continue neuro checks in a serial fashion.Continue nonoperative treatment Pulmonary. Continue aggressive pulmonary toilette, nasotracheal suction, and breathing treatments with nebulizers. Daily PT and OT Nutrition. Tolerating Oral diet Renal. Continue to monitor closely urine output, BUN and creatinine Endocrine. Continue to Monitor serial Acu checks and SSI as needed in detail ID continue to monitor for signs of infection Continue Protonix for stress ulcer prophylaxis Continue Arsalan hose and SCD's for DVT prophylaxis The exam, history, and the medical decision-making described in the above note were completed with the assistance of the mid-level provider. I reviewed and agree with the findings presented. I attest that I had a [id number] encounter with the patient on the same day, and personally performed and documented my assessment and findings in the medical record. (Alex Hair MD) Elmo Wall Jun 21, 2017 06:55 Alex Hair MD Jun 21, 2017 17:25
[2017-06-21] MEDS ORDERED: CALCIUM GLUCONATE INJ 1 GM in SODIUM CHLORIDE 0.9% INJ 100 ML IV ONE (10:45)
--- NOTE | 2017-06-21 10:54 | HHI.PR ---
Subjective Remarks Follow up intracranial hemorrhage, EtOH. Patient has no complaints at this time. Denies headache, vision changes, numbness/weakness/tingling of extremities. No chest pain or dyspnea. No nausea/vomiting/diarrhea. Objective Vitals Vital Signs Date Time Temp Pulse Resp B/P (MAP) Pulse Ox O2 Delivery O2 Flow Rate FiO2 06/21/17 06:00 80 06/21/17 04:00 98.4 72 14 105/54 (71) 96 06/21/17 04:00 71 06/21/17 02:00 72 06/21/17 00:00 73 06/21/17 00:00 98.0 73 20 101/51 (68) 96 06/20/17 22:00 79 06/20/17 21:45 06/20/17 21:11 96 06/20/17 20:19 85 18 139/72 (94) 95 06/20/17 20:19 87 18 96 06/20/17 18:29 97.9 82 18 132/68 (89) 98 Room Air 06/20/17 16:58 98.0 78 20 129/76 (93) 96 I/O 06/20/17 06/20/17 06/20/17 06/21/17 06/21/17 06/21/17 07:00 15:00 23:00 07:00 15:00 23:00 Intake Total 1339 ml Output Total 800 ml Balance -800 ml 1339 ml Intake Oral 480 ml IV Total 859 ml Output Urine Total 800 ml # Voids 1 2 Result Diagram: 06/21/17 0452 06/21/17 0452 Imaging Last Impressions Head CT 06/20/17 1718 Signed Impressions: Service Date/Time: Tuesday, June 20, 2017 18:00 - CONCLUSION: Right frontal acute subdural and parenchymal hemorrhage. Generalized but mostly right cerebral hemisphere sulcal subarachnoid blood. No measurable midline shift. Freddy Romo MD Objective Remarks General: No acute distress. Heart: Regular rate and rhythm. No murmur. Lungs: Clear to auscultation bilaterally. No wheezes, rales, or rhonchi. Breathing is nonlabored. Abdomen: Soft, nontender, nondistended. Extremities: No lower extremity edema. No calf tenderness. Psych: Alert and oriented. Procedures None Urinary Catheter: No Vascular Central Line Catheter: No A/P Problem List: (1) Intracerebral bleed due to trauma ICD Code: S06.369A - Traumatic hemorrhage of cerebrum, unspecified, with loss of consciousness of unspecified duration, initial encounter Status: Acute (2) Hypertension ICD Code: I10 - Essential (primary) hypertension (3) Hypocalcemia ICD Code: E83.51 - Hypocalcemia (4) Hypophosphatemia ICD Code: E83.39 - Other disorders of phosphorus metabolism (5) Alcohol intoxication ICD Code: F10.929 - Alcohol use, unspecified with intoxication, unspecified Status: Acute Assessment and Plan 1. Intracranial bleed secondary to trauma: Subarachnoid and subdural hemorrhages noted on CT. Appreciate neurosurgery recommendations. Repeat CT today. Monitor neuro checks. Keppra for seizure prophylaxis. 2. Hypertension: Hydralazine, labetalol as needed. 3. EtOH intoxication: [facility] protocol. Thiamine, folate, multivitamin. 4. GI prophylaxis: Pepcid. 5. DVT prophylaxis: SCDs, ambulation. Avoid chemical prophylaxis secondary to intracranial hemorrhage. Discharge Planning When cleared by neurosurgery. Problem Qualifiers (1) Intracerebral bleed due to trauma: Qualified Codes: S06.369A - Traumatic hemorrhage of cerebrum, unspecified, with loss of consciousness of unspecified duration, initial encounter (2) Alcohol intoxication: Qualified Codes: F10.920 - Alcohol use, unspecified with intoxication, uncomplicated Shun Herr MD Jun 21, 2017 10:54
[2017-06-21] MEDS: levETIRAcetam INJ 500 MG in SODIUM CHLORIDE 0.9% INJ 100 ML IV SCH ×2 (11:08→22:04)
[2017-06-21] MEDS: SODIUM CHLORIDE 0.9% FLUSH 10 ML FLUSH SCH ×2 (11:08→21:00)
[2017-06-21] MEDS: SODIUM CHLOR 0.9% 1000 ML INJ 1,000 ML IV SCH ×2 (11:08→22:00)
[2017-06-21] MEDS: DOCUSATE SODIUM 50 MG/SENNA 8.6 MG TAB PO SCH ×2 (11:09→22:03)
[2017-06-21] MEDS: POTASSIUM PHOSPHATE MONOBASIC 500 MG TAB PO PRN (11:09)
[2017-06-21] MEDS: FAMOTIDINE 20 MG/2 ML VIAL IV PUSH SCH ×2 (11:09→22:04)
--- NOTE | 2017-06-21 12:54 | RADRPT ---
EXAM DATE/TIME: 06/21/2017 12:36 [place] COMPARISON: CT BRAIN W/O CONTRAST, June 20, 2017, 18:00. INDICATIONS : Intracerebral hemorrhage. RADIATION DOSE: 56.35 CTDIvol (mGy) MEDICAL HISTORY : Hypertension. SURGICAL HISTORY : None. ENCOUNTER: Subsequent ACUITY: 1 day PAIN SCALE: 3/10 LOCATION: Bilateral cranial TECHNIQUE: Multiple contiguous axial images were obtained of the head. Using automated exposure control and adj ustment of the mA and/or kV according to patient size, radiation dose was kept as low as reasonably a chievable to obtain optimal diagnostic quality images. DICOM format image data is available electro nically for review and comparison. FINDINGS: Right frontal subdural hematoma measuring approximate 7 mm in maximal thickness again noted, not sign ificantly changed. There is patchy, mostly subcortical parenchymal hemorrhage of the right frontal lo be, especially anteriorly and inferiorly. There is some localized parenchymal hemorrhage in the far m edial aspect anteriorly of the left frontal lobe. Decreased right sided subarachnoid blood. Small hem orrhage in between the leaves of the falx and tentorium not significantly changed. There is modestly increased cerebral edema of the right frontal lobe. Approximately 2 mm of leftward midline shift have developed. No skull fracture. I believe a remote right sided craniotomy. CONCLUSION: No significant change in the intracranial hemorrhage, mostly right frontal subdural and intraparenchy mal. Slightly increased right frontal lobe cerebral edema and now with 2 mm of midline shift present. Freddy Romo MD on June 21, 2017 at 12:48 Board Certified Radiologist. This report was verified electronically.
[2017-06-21] MEDS: ONDANSETRON HCL 4 MG/2 ML VIAL IV PRN (12:56)
[2017-06-22] VITALS (14 sets, daily range): BP systolic 129–185; BP diastolic 69–84; PULSE 43–69; RESP 14–21; TEMP 98.4–98.8; O2SAT 97–98
[2017-06-22] MEDS: CHLORHEXIDINE GLUCONATE 2 % 1 PACK (2 CLOTHS) TOP SCH (04:00)
[2017-06-22 06:28] LABS: AUTOMATED NEUTROPHIL # 7.7 TH/MM3 (1.8-7.7); BASOPHIL % 0.3 % (0.0-2.0); EOSINOPHIL % 0.1 % (0.0-4.0); HEMATOCRIT 41.8 % (39.0-51.0); HEMO FLAGS DIFF FINAL; LYMPH % 14.1 % (9.0-44.0); LYMPHOCYTE # 1.4 TH/MM3 (1.0-4.8); MEAN CELL VOLUME 97.5 FL (80.0-100.0); MEAN CORPUSCULAR HEMOGLOBIN 31.6 PG (27.0-34.0); MEAN CORPUSCULAR HGB CONC 32.5 % (32.0-36.0); MONO % 8.8 % (0.0-8.0); NEUT % 76.7 % (16.0-70.0); PLATELET COUNT 178 TH/MM3 (150-450); RED BLOOD COUNT 4.28 MIL/MM3 (4.50-5.90); RED CELL DISTRIBUTION WIDTH 13.1 % (11.6-17.2)
[2017-06-22 07:08] LABS: BICARBONATE 22.1 MEQ/L (21.0-32.0); MAGNESIUM 2.3 MG/DL (1.5-2.5); POTASSIUM 3.9 MEQ/L (3.5-5.1)
--- NOTE | 2017-06-22 08:19 | HHI.NSPN ---
(Elmo Wall) History Chief Complaint: No complaints. Right frontal SDH, parenchymal hemorrhage and SAH. (Elmo Wall) Interval History 06/21/17: Pt is awake this morning. He denies any headache, nausea or vomiting. No neck or low back pain. No chest or abdominal pain. He was reportedly very intoxicated when he came in and was not able to provide a good history. 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 He remembers drinking but doesn't recall anything about what happened to him. He denies any medical conditions such as epilepsy, cardiac disease, or syncope. 06/22/17: Pt awakens to voice. Has mild frontal headache. Periods of nausea and vomiting he states after he eats. No numbness and tingling in face or extremities. (Elmo Wall) Review of Systems General: Negative for: fever, chills, insomnia Respiratory: Negative for: shortness of breath, cough, sputum Cardiovascular: Negative for: chest pain Gastrointestinal: Positive for: nausea, vomitting, Negative for: diarrhea, constipation (Elmo Wall) Exam Results Vital Signs Date Time Temp Pulse Resp B/P (MAP) Pulse Ox O2 Delivery O2 Flow Rate FiO2 06/22/17 06:00 46 06/22/17 04:00 98.6 16 151/70 (97) 97 06/21/17 19:00 Room Air Intake and Output 06/22/17 06/22/17 06/23/17 08:00 16:00 00:00 Intake Total 1147 ml Balance 1147 ml (Elmo Wall) Physical Examination Resp: CTA bilaterally Heart: NSR no murmurs Abd: Soft positive bs Skin: No cyanosis or erythema Muscle: Moves all 4 extremities well. Neuro: The patient is alert, awake. Cranial nerve examination: pupils to be equal, round and reactive to light. Extra-ocular movements are intact. Facial motor and sensory function are normal and symmetrical. Gross hearing appears intact. Sternocleidomastoid and trapezius muscles are symmetrical. Other cranial nerves are intact. Neck is soft and supple with a good range of motion without pain. Muscle strength is normal in all muscle groups of both upper and lower extremities. Sensory examination is intact to light touch and pin prick in both the upper and lower extremities. Deep tendon reflexes are symmetrical in both upper and lower extremities. There is a bilateral plantar flexion response. Cerebellar examination is unremarkable, without deficits. (Elmo Wall) Physical Examination Mr Fontenot is alert, awake and oriented to time, place and person. Speech is fluent. Cranial nerve examination: pupils to be equal, round and reactive to light. Extra-ocular movements are intact. Facial motor and sensory function are normal and symmetrical. Gross hearing appears intact. Sternocleidomastoid and trapezius muscles are symmetrical. Other cranial nerves are intact. Neck is soft and supple with a good range of motion without pain. Muscle strength is normal in all muscle groups of both upper and lower extremities. Sensory examination is intact to light touch and pin prick in both the upper and lower extremities. Deep tendon reflexes are symmetrical in both upper and lower extremities. There is a bilateral plantar flexion response. Cerebellar examination is unremarkable, (Alex Hair MD) Lab, Micro, Other Results Last Impressions Head CT 06/21/17 0000 Signed Impressions: Service Date/Time: Friday, June 21, 2017 12:36 - CONCLUSION: No significant change in the intracranial hemorrhage, mostly right frontal subdural and intraparenchymal. Slightly increased right frontal lobe cerebral edema and now with 2 mm of midline shift present. Freddy Romo MD Laboratory Tests Test 06/22/17 05:54 White Blood Count 10.0 TH/MM3 Red Blood Count 4.28 MIL/MM3 Hemoglobin 13.6 GM/DL Hematocrit 41.8 % Mean Corpuscular Volume 97.5 FL Mean Corpuscular Hemoglobin 31.6 PG Mean Corpuscular Hemoglobin Concent 32.5 % Red Cell Distribution Width 13.1 % Platelet Count 178 TH/MM3 Mean Platelet Volume 7.7 FL Neutrophils (%) (Auto) 76.7 % Lymphocytes (%) (Auto) 14.1 % Monocytes (%) (Auto) 8.8 % Eosinophils (%) (Auto) 0.1 % Basophils (%) (Auto) 0.3 % Neutrophils # (Auto) 7.7 TH/MM3 Lymphocytes # (Auto) 1.4 TH/MM3 Monocytes # (Auto) 0.9 TH/MM3 Eosinophils # (Auto) 0.0 TH/MM3 Basophils # (Auto) 0.0 TH/MM3 CBC Comment DIFF FINAL Differential Comment Blood Urea Nitrogen 10 MG/DL Creatinine 0.73 MG/DL Random Glucose 118 MG/DL Calcium Level 7.5 MG/DL Phosphorus Level 1.7 MG/DL Magnesium Level 2.3 MG/DL Sodium Level 136 MEQ/L Potassium Level 3.9 MEQ/L Chloride Level 105 MEQ/L Carbon Dioxide Level 22.1 MEQ/L Anion Gap 9 MEQ/L Estimat Glomerular Filtration Rate 114 ML/MIN (Elmo Wall) Lab, Micro, Other Results Current Medications Sodium Chloride 1,000 ml @ 1,000 mls/hr Q1H IV Last administered on 06/20/17 18:28; Start 06/20/17 at 17:19; Stop 06/20/17 at 18:18; Status DC Sodium Chloride 1,000 ml @ 84 mls/hr [id number] IV Last administered on 08:56; Start 06/20/17 at 20:20 Sodium Chloride (NS Flush) 2 ml UNSCH PRN .XX FLUSH AFTER USING IV ACCESS; Start 06/20/17 at 20:30 Sodium Chloride (NS Flush) 2 ml BID .XX Last administered on 06/22/17 08:58; Start 06/20/17 at 21:00 Acetaminophen (Tylenol) 650 mg Q6H PRN PO PAIN 1-10 AND/OR FEVER >101F; Start 06/20/17 at 20:30 Morphine Sulfate (Morphine Inj) 2 mg Q2H PRN IV PAIN SCALE 6 TO 10; Start 06/20 at 20:30 Famotidine (Pepcid Inj) 20 mg Q12HR IV PUSH Last administered on 06/22/17 08: 57; Start 06/20/17 at 21:00 Ondansetron HCl (Zofran Inj) 4 mg Q6H PRN IV NAUSEA OR VOMITING Last administered on 06/22/17 08:57; Start 06/20/17 at 20:30 Albuterol/ Ipratropium (Duoneb Neb) 1 ampule Q2HR NEB PRN INH WHEEZING; Start 06/20/17 at 20:30 Miscellaneous Information 1 [id number] Last administered on 06/20/17 22:23; Start 06/20/17 at 20:30 Chlorhexidine Gluconate (Chlorhexidine 2% Cloth) 3 pack Taper DAILY@04 TOP Last administered on 06/22/17 04:00; Start 06/21/17 at 04:00; Stop 06/17/18 at 03:59 Chlorhexidine Gluconate (Chlorhexidine 2% Cloth) 3 pack UNSCH PRN TOP HYGIENIC CARE; Start 06/20/17 at 20:30 Senna/Docusate Sodium (Angela-Colace) 1 tab BID PO Last administered on 08:58; Start 06/20/17 at 21:00 Magnesium Hydroxide (Milk Of Magnesia Liq) 30 ml Q12H PRN PO MILD - MODERATE CONSTIPATION; Start 06/20/17 at 20:30 Sennosides (Senokot) 17.2 mg Q12H PRN PO MODERATE - SEVERE CONSTIPATION; Start 06/20/17 at 20:30 Bisacodyl (Dulcolax Supp) 10 mg DAILY PRN RECTAL SEVERE CONSITIPATION; Start at 20:30 Lactulose (Lactulose Liq) 30 ml DAILY PRN PO SEVERE CONSITIPATION; Start at 20:30 Potassium Chloride 100 ml @ 50 mls/hr Q2H PRN IV For Potassium 2.8 - 3.2 mEq/L ; Start 06/20/17 at 20:30 Potassium Chloride 100 ml @ 50 mls/hr Q2H PRN IV For Potassium 2.8 - 3.2 mEq/L ; Start 06/20/17 at 20:30 Potassium Bicarb/ Potassium Chloride (K-Lyte Cl Eff) 50 meq UNSCH PRN PO For Potassium 3.3 - 3.5 mEq/L; Start 06/20/17 at 20:30 Potassium Chloride 100 ml @ 25 mls/hr UNSCH PRN IV For Potassium 3.3 - 3.5 mEq /L; Start 06/20/17 at 20:30 Potassium Chloride 100 ml @ 50 mls/hr Q2H PRN IV For Potassium 3.3 - 3.5 mEq/L ; Start 06/20/17 at 20:30 Magnesium Sulfate 4 gm/Sodium Chloride 100 ml @ 50 mls/hr UNSCH PRN IV For Magnesium 0.9 - 1.1 mg/dL; Start 06/20/17 at 20:30 Magnesium Oxide (Mag-Ox) 800 mg UNSCH PRN PO For Magnesium 1.2 - 1.6 mg/dL; Start 06/20/17 at 20:30 Magnesium Sulfate 2 gm/Sodium Chloride 100 ml @ 50 mls/hr UNSCH PRN IV For Magnesium 1.2 - 1.6 mg/dL; Start 06/20/17 at 20:30 Potassium Phosphate (K-Phos) 2,000 mg Q4H PRN PO For Phosphorus < 2.5 mg/dL Last administered on 06/22/17t 13:07; Start 06/20/17 at 20:30 Sodium Phosphate 30 mmol/Sodium Chloride 250 ml @ 42 mls/hr UNSCH PRN IV For Phosphorus < 2.5 mg/dL; Start 06/20/17 at 20:30 Potassium Phosphate (K-Phos) 2,000 mg UNSCH PRN PO/TUBE SEE LABEL COMMENTS; Start 06/20/17 at 20:30 Potassium Phosphate 30 mmol/ Sodium Chloride 260 ml @ 42 mls/hr UNSCH PRN IV SEE LABEL COMMENTS; Start 06/20/17 at 20:30 Flumazenil (Romazicon Inj) 0.2 mg Q1M PRN IV PUSH SEE LABEL COMMENTS; Start at 20:45 Lorazepam (Ativan) 1 mg Q4H PRN PO CIWA 8 - 10; Start 06/20/17 at 20:45 Lorazepam (Ativan Inj) 1 mg Q4H PRN IV PUSH CIWA 8 - 10; Start 06/20/17 at 20: 45 Lorazepam (Ativan) 2 mg Q2H PRN PO CIWA 11-14; Start 06/20/17 at 20:45 Lorazepam (Ativan Inj) 2 mg Q2H PRN IV PUSH CIWA 11-14; Start 06/20/17 at 20:45 Lorazepam (Ativan Inj) 2 mg Q1H PRN IV PUSH CIWA 15-20; Start 06/20/17 at 20:45 Lorazepam (Ativan Inj) 2 mg Q15M PRN IV PUSH CIWA > 20; Start 06/20/17 at 20:45 Levetriacetam 500 mg/Sodium Chloride 105 ml @ 420 mls/hr Q12HR IV Last administered on 06/22/17 08:57; Start 06/20/17 at 21:00 Multivitamins 10 ml/Thiamine HCl 100 mg/Folic Acid 1 mg/Sodium Chloride 511.2 ml @ 125 mls/hr ONCE ONCE IV Last administered on 06/21/17 02:57; Start at 02:00; Stop 06/21/17 at 06:05; Status DC Calcium Gluconate 1 gm/Sodium Chloride 110 ml @ 110 mls/hr ONCE ONCE IV Last administered on 06/21/17 11:52; Start 06/21/17 at 10:45; Stop 06/21/17 at 11:44 ; Status DC Hydralazine HCl (Apresoline Inj) 10 mg Q4H PRN IV PUSH SBP>160, DBP>90 Last administered on 06/22/17 13:06; Start 06/22/17 at 10:45 (Alex Hair MD) Medical Decision Making Impression and Plan A: 47 y/o M with TBI a right frontal acute subdural and parenchymal hemorrhage. Right cerebral hemisphere subarachnoid hemorrhage. Alcohol intoxication P: Continue with close Neuro checks Continue to monitor for alcohol withdrawal Continue with Keppra for seizure prophylaxis. Zofran for n/v Continue with rehab. (Elmo Wall) Impression and Plan Last Impressions Head CT 06/21/17 0000 Signed Impressions: Service Date/Time: Wednesday, June 21, 2017 12:36 - CONCLUSION: No significant change in the intracranial hemorrhage, mostly right frontal subdural and intraparenchymal. Slightly increased right frontal lobe cerebral edema and now with 2 mm of midline shift present. Freddy Romo MD (Alex Hair MD) Attending Statement Neuro. Continue neuro checks in a serial fashion.I reviewed his CT from yesterday which is stable. Continue nonoperative treatment Pulmonary. Continue aggressive pulmonary toilette, nasotracheal suction, and breathing treatments with nebulizers. Daily PT and OT Nutrition. Tolerating Oral diet Renal. Continue to monitor closely urine output, BUN and creatinine Endocrine. Continue to Monitor serial Acu checks and SSI as needed in detail ID continue to monitor for signs of infection Continue Protonix for stress ulcer prophylaxis Continue Arsalan hose and SCD's for DVT prophylaxis The exam, history, and the medical decision-making described in the above note were completed with the assistance of the mid-level provider. I reviewed and agree with the findings presented. I attest that I had a [id number] encounter with the patient on the same day, and personally performed and documented my assessment and findings in the medical record. (Alex Hair MD) Elmo Wall Jun 22, 2017 08:19 Alex Hair MD Jun 22, 2017 13:54
[2017-06-22] MEDS: SODIUM CHLOR 0.9% 1000 ML INJ 1,000 ML IV SCH ×2 (08:56→21:17)
[2017-06-22] MEDS: levETIRAcetam INJ 500 MG in SODIUM CHLORIDE 0.9% INJ 100 ML IV SCH ×2 (08:57→20:23)
[2017-06-22] MEDS: ONDANSETRON HCL 4 MG/2 ML VIAL IV PRN ×2 (08:57→20:33)
[2017-06-22] MEDS: FAMOTIDINE 20 MG/2 ML VIAL IV PUSH SCH ×2 (08:57→20:23)
[2017-06-22] MEDS: POTASSIUM PHOSPHATE MONOBASIC 500 MG TAB PO PRN ×2 (08:58→13:07)
[2017-06-22] MEDS: SODIUM CHLORIDE 0.9% FLUSH 10 ML FLUSH SCH ×2 (08:58→20:24)
[2017-06-22] MEDS: DOCUSATE SODIUM 50 MG/SENNA 8.6 MG TAB PO SCH ×2 (08:58→20:24)
--- NOTE | 2017-06-22 10:45 | HHI.PR ---
Subjective Remarks Follow up hypertension, intracranial bleed. Patient has no complaints at this time. Denies headache, vision changes, numbness/tingling/weakness of extremities. Objective Vitals Vital Signs Date Time Temp Pulse Resp B/P (MAP) Pulse Ox O2 Delivery O2 Flow Rate FiO2 06/22/17 10:00 52 06/22/17 08:00 98.4 43 14 145/79 (101) 98 06/22/17 08:00 43 06/22/17 07:00 97 Room Air 06/22/17 06:00 46 06/22/17 04:00 50 06/22/17 04:00 98.6 48 16 151/70 (97) 97 06/22/17 02:00 49 06/22/17 00:00 98.6 48 16 129/70 (89) 97 06/22/17 00:00 48 06/21/17 22:00 50 06/21/17 20:00 98.6 60 20 149/74 (99) 97 06/21/17 20:00 60 06/21/17 19:00 99 Room Air 06/21/17 18:00 58 06/21/17 16:00 98.6 56 16 126/63 (84) 97 06/21/17 16:00 56 06/21/17 14:00 54 06/21/17 12:00 68 06/21/17 12:00 98.3 68 22 151/66 (94) 96 I/O 06/21/17 06/21/17 06/21/17 06/22/17 06/22/17 06/22/17 06:59 14:59 22:59 06:59 14:59 22:59 Intake Total 1339 ml 1715 ml 105 ml 1147 ml 100 ml Balance 1339 ml 1715 ml 105 ml 1147 ml 100 ml Intake Oral 480 ml 240 ml IV Total 859 ml 1715 ml 105 ml 907 ml 100 ml # Voids 2 3 5 # Bowel Movements 0 0 Result Diagram: 06/22/17 0554 06/22/17 0554 Imaging Last Impressions Head CT 06/21/17 0000 Signed Impressions: Service Date/Time: Wednesday, June 21, 2017 12:36 - CONCLUSION: No significant change in the intracranial hemorrhage, mostly right frontal subdural and intraparenchymal. Slightly increased right frontal lobe cerebral edema and now with 2 mm of midline shift present. Freddy Romo MD Objective Remarks General: No acute distress. Heart: Bradycardic. Lungs: Clear to auscultation bilaterally. No wheezes, rales, or rhonchi. Breathing is nonlabored. Abdomen: Soft, nontender, nondistended. Extremities: No lower extremity edema. No calf tenderness. Psych: Alert and oriented. Procedures None Urinary Catheter: No Vascular Central Line Catheter: No A/P Problem List: (1) Intracerebral bleed due to trauma ICD Code: S06.369A - Traumatic hemorrhage of cerebrum, unspecified, with loss of consciousness of unspecified duration, initial encounter Status: Acute (2) Hypertension ICD Code: I10 - Essential (primary) hypertension (3) Hypocalcemia ICD Code: E83.51 - Hypocalcemia (4) Hypophosphatemia ICD Code: E83.39 - Other disorders of phosphorus metabolism (5) Alcohol intoxication ICD Code: F10.929 - Alcohol use, unspecified with intoxication, unspecified Status: Acute Assessment and Plan 1. Intracranial bleed secondary to trauma: Subarachnoid and subdural hemorrhages noted on CT. Appreciate neurosurgery recommendations. Repeat CT showed slightly increased right frontal lobe edema and 2mm midline shift. Monitor neuro checks. Keppra for seizure prophylaxis. 2. Hypertension: Hydralazine as needed. 3. EtOH intoxication: [facility] protocol. Thiamine, folate, multivitamin. 4. GI prophylaxis: Pepcid. 5. DVT prophylaxis: SCDs, ambulation. Avoid chemical prophylaxis secondary to intracranial hemorrhage. Discharge Planning When cleared by neurosurgery. Problem Qualifiers (1) Intracerebral bleed due to trauma: Qualified Codes: S06.369A - Traumatic hemorrhage of cerebrum, unspecified, with loss of consciousness of unspecified duration, initial encounter (2) Alcohol intoxication: Qualified Codes: F10.920 - Alcohol use, unspecified with intoxication, uncomplicated Shun Herr MD Jun 22, 2017 10:45
[2017-06-22] MEDS: hydrALAZINE HCL 20 MG/ML VIAL IV PUSH PRN ×2 (13:06→20:23)
[2017-06-23] VITALS (12 sets, daily range): BP systolic 125–162; BP diastolic 60–80; PULSE 38–58; RESP 15–19; TEMP 98.2–98.8; O2SAT 94–98
[2017-06-23] MEDS: CHLORHEXIDINE GLUCONATE 2 % 1 PACK (2 CLOTHS) TOP SCH (04:00)
[2017-06-23] MEDS: levETIRAcetam INJ 500 MG in SODIUM CHLORIDE 0.9% INJ 100 ML IV SCH ×2 (08:21→20:21)
[2017-06-23] MEDS: DOCUSATE SODIUM 50 MG/SENNA 8.6 MG TAB PO SCH ×2 (08:22→20:21)
[2017-06-23] MEDS: MORPHINE SULFATE 4 MG/ML INJ IV PRN (08:22)
[2017-06-23] MEDS: FAMOTIDINE 20 MG/2 ML VIAL IV PUSH SCH ×2 (08:22→20:21)
[2017-06-23] MEDS: SODIUM CHLORIDE 0.9% FLUSH 10 ML FLUSH SCH ×2 (08:23→20:21)
[2017-06-23] MEDS: SODIUM CHLOR 0.9% 1000 ML INJ 1,000 ML IV SCH ×2 (08:34→20:30)
--- NOTE | 2017-06-23 10:02 | HHI.PR ---
Subjective Remarks Follow up intracranial hemorrhage, bradycardia. Patient has no complaints at this time. Headache is improving. Denies lightheadedness, dizziness, chest pain , dyspnea. Objective Vitals Vital Signs Date Time Temp Pulse Resp B/P (MAP) Pulse Ox O2 Delivery O2 Flow Rate FiO2 06/23/17 08:27 20 06/23/17 08:00 39 06/23/17 07:00 96 Room Air 06/23/17 06:00 40 06/23/17 04:00 44 06/23/17 04:00 98.4 44 18 131/64 (86) 95 06/23/17 02:00 50 06/23/17 00:00 58 06/23/17 00:00 98.8 58 19 125/60 (81) 94 06/22/17 22:00 56 06/22/17 20:00 98.4 50 21 185/84 (117) 97 06/22/17 20:00 50 06/22/17 19:00 98 Room Air 06/22/17 18:00 50 06/22/17 16:15 51 145/69 (94) 06/22/17 16:00 98.8 69 20 162/72 (102) 97 06/22/17 16:00 69 06/22/17 14:00 52 06/22/17 12:15 52 153/75 (101) 06/22/17 12:00 98.6 48 18 166/80 (108) 97 06/22/17 12:00 49 06/22/17 10:00 52 I/O 06/22/17 06/22/17 06/22/17 06/23/17 06/23/17 06/23/17 07:00 15:00 23:00 07:00 15:00 23:00 Intake Total 1147 ml 100 ml 480 ml 810 ml Output Total 4 ml 3 ml Balance 1147 ml 100 ml 476 ml 807 ml Intake Oral 240 ml 480 ml 0 ml IV Total 907 ml 100 ml 810 ml Output Urine Total 4 ml 3 ml # Voids 5 # Bowel Movements 0 0 0 Result Diagram: 06/22/17 0554 06/22/17 0554 Imaging Last Impressions Head CT 06/21/17 0000 Signed Impressions: Service Date/Time: Wednesday, June 21, 2017 12:36 - CONCLUSION: No significant change in the intracranial hemorrhage, mostly right frontal subdural and intraparenchymal. Slightly increased right frontal lobe cerebral edema and now with 2 mm of midline shift present. Freddy Romo MD Objective Remarks General: No acute distress. Heart: Bradycardic. Lungs: Clear to auscultation bilaterally. No wheezes, rales, or rhonchi. Breathing is nonlabored. Abdomen: Soft, nontender, nondistended. Extremities: No lower extremity edema. No calf tenderness. Psych: Alert and oriented. Procedures None Urinary Catheter: No Vascular Central Line Catheter: No A/P Problem List: (1) Intracerebral bleed due to trauma ICD Code: S06.369A - Traumatic hemorrhage of cerebrum, unspecified, with loss of consciousness of unspecified duration, initial encounter Status: Acute (2) Hypertension ICD Code: I10 - Essential (primary) hypertension (3) Hypocalcemia ICD Code: E83.51 - Hypocalcemia (4) Hypophosphatemia ICD Code: E83.39 - Other disorders of phosphorus metabolism (5) Alcohol intoxication ICD Code: F10.929 - Alcohol use, unspecified with intoxication, unspecified Status: Acute Assessment and Plan 1. Intracranial bleed secondary to trauma: Subarachnoid and subdural hemorrhages noted on CT. Appreciate neurosurgery recommendations. Repeat CT showed slightly increased right frontal lobe edema and 2mm midline shift. Monitor neuro checks. Keppra for seizure prophylaxis. 2. Hypertension: Hydralazine as needed. 3. EtOH intoxication: [facility] protocol. Thiamine, folate, multivitamin. 4. GI prophylaxis: Pepcid. 5. DVT prophylaxis: SCDs, ambulation. Avoid chemical prophylaxis secondary to intracranial hemorrhage. 6. Bradycardia: Asymptomatic. Rate dropping down to 25 at times. Consult cardiology. Discharge Planning When cleared by neurosurgery and pending cardiology evaluation. Problem Qualifiers (1) Intracerebral bleed due to trauma: Qualified Codes: S06.369A - Traumatic hemorrhage of cerebrum, unspecified, with loss of consciousness of unspecified duration, initial encounter (2) Alcohol intoxication: Qualified Codes: F10.920 - Alcohol use, unspecified with intoxication, uncomplicated Shun Herr MD Jun 23, 2017 10:01
[2017-06-23] MEDS: hydrALAZINE HCL 20 MG/ML VIAL IV PUSH PRN ×2 (11:18→18:39)
--- NOTE | 2017-06-23 15:37 | MB ---
cc: KAYLA MILLER DATE OF CONSULTATION: 06/23/2017 HISTORY OF PRESENT ILLNESS A 47-year-old male who presented with alcohol intoxication and headaches. He was diagnosed with an intracranial bleed (small subarachnoid bleed). He has been bradycardic with sinus rhythm in the 40s. He has not had any chest pain, shortness of breath, PND, peripheral edema, dizziness, lightheadedness or palpitations. He has previous history of a traumatic subarachnoid bleed in 2014. He has no previous cardiac history. PAST MEDICAL HISTORY 1. Past medical history is negative for hypertension, diabetes mellitus, coronary artery disease, CVA. 2. History of traumatic subarachnoid bleed in 2014. MEDICATIONS 1. Pepcid. 2. Angela-Colace. ALLERGIES None. SOCIAL HISTORY The patient does not smoke. He drinks alcohol heavily. FAMILY HISTORY Negative for heart disease. REVIEW OF SYSTEMS Otherwise negative. PHYSICAL EXAMINATION VITAL SIGNS: Blood pressure 136/71, pulse 42 and regular. HEENT: Negative. NECK: 2+ carotid upstrokes. No bruits. LUNGS: Clear. HEART: Regular with no murmur, gallop or rub. ABDOMEN: Soft. No bruits. EXTREMITIES: Without edema. 2+ distal pulses. NEUROLOGIC: Grossly nonfocal. TELEMETRY Telemetry shows sinus bradycardia. LABORATORY Hemoglobin 13.6. Potassium 3.9. Creatinine 0.7. CK 645, CK-MB index normal at 1.2. AST 28, ALT 25. DIAGNOSIS 1. Sinus bradycardia. 2. Traumatic subarachnoid hemorrhage. 3. Heavy alcohol use. DISPOSITION Mr. Fontenot will be monitored on telemetry. His sinus bradycardia may be related to his intracranial bleed. His blood pressure remains stable. We will obtain an echocardiogram to evaluate his left ventricular function. I will follow him for cardiology during his hospitalization. MD MIKAYLA Celestin/DIAMOND /2:51 PM /3:22 PM MTDD
[2017-06-23] MEDS: ONDANSETRON HCL 4 MG/2 ML VIAL IV PRN (20:34)
[2017-06-24] VITALS (15 sets, daily range): BP systolic 134–160; BP diastolic 62–77; PULSE 36–47; RESP 15–21; TEMP 97.8–98.7; O2SAT 96–99
[2017-06-24] MEDS: CHLORHEXIDINE GLUCONATE 2 % 1 PACK (2 CLOTHS) TOP SCH (04:00)
[2017-06-24] MEDS: SODIUM CHLOR 0.9% 1000 ML INJ 1,000 ML IV SCH ×2 (07:45→19:40)
[2017-06-24] MEDS: SODIUM CHLORIDE 0.9% FLUSH 10 ML FLUSH SCH ×2 (08:50→22:25)
[2017-06-24] MEDS: MORPHINE SULFATE 4 MG/ML INJ IV PRN ×2 (08:57→22:24)
[2017-06-24] MEDS: levETIRAcetam INJ 500 MG in SODIUM CHLORIDE 0.9% INJ 100 ML IV SCH ×2 (09:16→22:25)
[2017-06-24] MEDS: FAMOTIDINE 20 MG/2 ML VIAL IV PUSH SCH ×2 (09:16→22:24)
[2017-06-24] MEDS: DOCUSATE SODIUM 50 MG/SENNA 8.6 MG TAB PO SCH ×2 (09:17→22:25)
--- NOTE | 2017-06-24 10:26 | HHI.PR ---
Subjective Remarks Follow up bradycardia, ICH. Patient has no complaints at this time. Denies chest pain, dyspnea, numbness/tingling/weakness of extremities. Objective Vitals Vital Signs Date Time Temp Pulse Resp B/P (MAP) Pulse Ox O2 Delivery O2 Flow Rate FiO2 06/24/17 10:00 42 06/24/17 09:02 20 06/24/17 08:00 97.8 47 20 139/64 (89) 99 06/24/17 08:00 47 06/24/17 07:00 97 Room Air 06/24/17 06:00 40 06/24/17 04:49 96 06/24/17 04:00 98.2 40 15 150/72 (98) 96 06/24/17 04:00 40 06/24/17 02:00 42 06/24/17 00:30 98.1 42 18 134/63 (86) 97 06/24/17 00:24 96 06/24/17 00:00 42 06/23/17 22:00 46 06/23/17 20:00 98.2 44 17 128/74 (92) 98 06/23/17 20:00 44 06/23/17 20:00 98 Room Air 06/23/17 18:00 38 06/23/17 16:00 42 06/23/17 16:00 98.7 42 15 159/74 (102) 98 06/23/17 14:00 42 06/23/17 12:00 98.5 42 16 162/80 (107) 97 06/23/17 12:00 45 I/O 06/23/17 06/23/17 06/23/17 06/24/17 06/24/17 06/24/17 07:00 15:00 23:00 07:00 15:00 23:00 Intake Total 810 ml 1263 ml 1080 ml Output Total 3 ml Balance 807 ml 1263 ml 1080 ml Intake Oral 0 ml 240 ml 240 ml IV Total 810 ml 1023 ml 840 ml Output Urine Total 3 ml # Voids 4 2 # Bowel Movements 0 0 Result Diagram: 06/22/17 0554 06/22/17 0554 Imaging Last Impressions Head CT 06/21/17 0000 Signed Impressions: Service Date/Time: Wednesday, June 21, 2017 12:36 - CONCLUSION: No significant change in the intracranial hemorrhage, mostly right frontal subdural and intraparenchymal. Slightly increased right frontal lobe cerebral edema and now with 2 mm of midline shift present. Freddy Romo MD Objective Remarks General: No acute distress. Heart: Bradycardic. Lungs: Clear to auscultation bilaterally. No wheezes, rales, or rhonchi. Breathing is nonlabored. Abdomen: Soft, nontender, nondistended. Extremities: No lower extremity edema. No calf tenderness. Psych: Alert and oriented. Procedures None Urinary Catheter: No Vascular Central Line Catheter: No A/P Problem List: (1) Intracerebral bleed due to trauma ICD Code: S06.369A - Traumatic hemorrhage of cerebrum, unspecified, with loss of consciousness of unspecified duration, initial encounter Status: Acute (2) Hypertension ICD Code: I10 - Essential (primary) hypertension (3) Hypocalcemia ICD Code: E83.51 - Hypocalcemia (4) Hypophosphatemia ICD Code: E83.39 - Other disorders of phosphorus metabolism (5) Alcohol intoxication ICD Code: F10.929 - Alcohol use, unspecified with intoxication, unspecified Status: Acute Assessment and Plan 1. Intracranial bleed secondary to trauma: Subarachnoid and subdural hemorrhages noted on CT. Appreciate neurosurgery recommendations. Repeat CT showed slightly increased right frontal lobe edema and 2mm midline shift. Monitor neuro checks. Keppra for seizure prophylaxis. 2. Hypertension: Hydralazine as needed. 3. EtOH intoxication: [facility] protocol. Thiamine, folate, multivitamin. No signs of withdrawal at this time. 4. GI prophylaxis: Pepcid. 5. DVT prophylaxis: SCDs, ambulation. Avoid chemical prophylaxis secondary to intracranial hemorrhage. 6. Bradycardia: Asymptomatic. Appreciate cardiology recommendations. Echocardiogram pending. Discharge Planning When cleared by neurosurgery and cardiology. Problem Qualifiers (1) Intracerebral bleed due to trauma: Qualified Codes: S06.369A - Traumatic hemorrhage of cerebrum, unspecified, with loss of consciousness of unspecified duration, initial encounter (2) Alcohol intoxication: Qualified Codes: F10.920 - Alcohol use, unspecified with intoxication, uncomplicated Shun Herr MD Jun 24, 2017 10:25
--- NOTE | 2017-06-24 15:07 | ECHRPT ---
Indication: Bradycardia, unspecified CONCLUSIONS The left ventricular systolic function is low normal with an estimated ejection fraction in the rang e of 50- 55%. Wall thickness is measured at the upper limits of normal. Normal left ventricular size. Trace mitral valve regurgitation. There is mild to moderate tricuspid valve regurgitation. The estimated pulmonary arterial pressure is 38 mmHg. BP: 150 / 72 HR: 36 Rhythm: Other MEASUREMENTS (Male / Female) Normal Values Technical Quality:Good 2D ECHO LV Diastolic Diameter PLAX 5.4 cm 4.2 - 5.9 / 3.9 - 5.3 cm LV Systolic Diameter PLAX 4.2 cm IVS Diastolic Thickness 1.3 cm 0.6 - 1.0 / 0.6 - 0.9 cm LVPW Diastolic Thickness 1.2 cm 0.6 - 1.0 / 0.6 - 0.9 cm LV Relative Wall Thickness 0.5 RV Internal Dim ED PLAX 3.0 cm LVOT Diameter 2.1 cm M-MODE Aortic Root Diameter MM 3.1 cm LA Systolic Diameter MM 4.2 cm LA Ao Ratio MM 1.4 AV Cusp Separation MM 2.2 cm DOPPLER AV Peak Velocity 185.0 cm/s AV Peak Gradient 13.7 mmHg LVOT Peak Velocity 93.3 cm/s LVOT Peak Gradient 3.5 mmHg AV Area Cont Eq pk 1.7 cm MR Peak Velocity 236.0 cm/s MR Peak Gradient 22.3 mmHg Mitral E Point Velocity 127.0 cm/s Mitral A Point Velocity 51.3 cm/s Mitral E to A Ratio 2.5 LV E' Lateral Velocity 16.7 cm/s Mitral E to LV E' Lateral Ratio 7.6 LV E' Septal Velocity 8.7 cm/s Mitral E to LV E' Septal Ratio 14.6 TR Peak Velocity 265.0 cm/s TR Peak Gradient 28.1 mmHg PV Peak Velocity 114.0 cm/s PV Peak Gradient 5.2 mmHg FINDINGS LEFT VENTRICLE The left ventricular systolic function is low normal with an estimated ejection fraction in the rang e of 50- 55%. Wall thickness is measured at the upper limits of normal. Normal left ventricular size. RIGHT VENTRICLE Normal right ventricular size and systolic function. LEFT ATRIUM The left atrial size is normal. RIGHT ATRIUM The right atrial size is normal. ATRIAL SEPTUM Normal atrial septal thickness without atrial level shunting by limited color doppler interrogation. AORTA The aortic root and proximal ascending aorta are normal in size on limited imaging. MITRAL VALVE Trace mitral valve regurgitation. AORTIC VALVE Trileaflet aortic valve. No aortic valve stenosis or regurgitation. TRICUSPID VALVE There is mild to moderate tricuspid valve regurgitation. The estimated pulmonary arterial pressure is 38 mmHg. PULMONARY VALVE The pulmonary valve is not well visualized. VESSELS The inferior vena cava is normal in size. PERICARDIUM No pericardial effusion. Jose L Douglas MD (Electronically Signed) Final Date:24 June 2017 15:06
--- NOTE | 2017-06-24 16:36 | PD.CARD.PN ---
Subjective Subjective Remarks No CP or SOB, feels fine Objective Medications Current Medications Sodium Chloride 1,000 ml @ 1,000 mls/hr Q1H IV Last administered on 06/20/17 18:28; Start 06/20/17 at 17:19; Stop 06/20/17 at 18:18; Status DC Sodium Chloride 1,000 ml @ 84 mls/hr [id number] IV Last administered on 20:30; Start 06/20/17 at 20:20 Sodium Chloride (NS Flush) 2 ml UNSCH PRN .XX FLUSH AFTER USING IV ACCESS; Start 06/20/17 at 20:30 Sodium Chloride (NS Flush) 2 ml BID .XX Last administered on 06/24/17 08:50; Start 06/20/17 at 21:00 Acetaminophen (Tylenol) 650 mg Q6H PRN PO PAIN 1-10 AND/OR FEVER >101F; Start 06/20/17 at 20:30 Morphine Sulfate (Morphine Inj) 2 mg Q2H PRN IV PAIN SCALE 6 TO 10 Last administered on 06/24/17 08:57; Start 06/20/17 at 20:30 Famotidine (Pepcid Inj) 20 mg Q12HR IV PUSH Last administered on 06/24/17 09: 16; Start 06/20/17 at 21:00 Ondansetron HCl (Zofran Inj) 4 mg Q6H PRN IV NAUSEA OR VOMITING Last administered on 06/23/17 20:34; Start 06/20/17 at 20:30 Albuterol/ Ipratropium (Duoneb Neb) 1 ampule Q2HR NEB PRN INH WHEEZING; Start 06/20/17 at 20:30 Miscellaneous Information 1 [id number] XX Last administered on 06/20/17 22:23; Start 06/20/17 at 20:30 Chlorhexidine Gluconate (Chlorhexidine 2% Cloth) 3 pack Taper DAILY@04 TOP Last administered on 06/22/17 04:00; Start 06/21/17 at 04:00; Stop 06/17/18 at 03:59 Chlorhexidine Gluconate (Chlorhexidine 2% Cloth) 3 pack UNSCH PRN TOP HYGIENIC CARE; Start 06/20/17 at 20:30 Senna/Docusate Sodium (Angela-Colace) 1 tab BID PO Last administered on t 09:17; Start 06/20/17 at 21:00 Magnesium Hydroxide (Milk Of Magnesia Liq) 30 ml Q12H PRN PO MILD - MODERATE CONSTIPATION; Start 06/20/17 at 20:30 Sennosides (Senokot) 17.2 mg Q12H PRN PO MODERATE - SEVERE CONSTIPATION; Start 06/20/17 at 20:30 Bisacodyl (Dulcolax Supp) 10 mg DAILY PRN RECTAL SEVERE CONSITIPATION; Start at 20:30 Lactulose (Lactulose Liq) 30 ml DAILY PRN PO SEVERE CONSITIPATION; Start at 20:30 Potassium Chloride 100 ml @ 50 mls/hr Q2H PRN IV For Potassium 2.8 - 3.2 mEq/L ; Start 06/20/17 at 20:30 Potassium Chloride 100 ml @ 50 mls/hr Q2H PRN IV For Potassium 2.8 - 3.2 mEq/L ; Start 06/20/17 at 20:30 Potassium Bicarb/ Potassium Chloride (K-Lyte Cl Eff) 50 meq UNSCH PRN PO For Potassium 3.3 - 3.5 mEq/L; Start 06/20/17 at 20:30 Potassium Chloride 100 ml @ 25 mls/hr UNSCH PRN IV For Potassium 3.3 - 3.5 mEq /L; Start 06/20/17 at 20:30 Potassium Chloride 100 ml @ 50 mls/hr Q2H PRN IV For Potassium 3.3 - 3.5 mEq/L ; Start 06/20/17 at 20:30 Magnesium Sulfate 4 gm/Sodium Chloride 100 ml @ 50 mls/hr UNSCH PRN IV For Magnesium 0.9 - 1.1 mg/dL; Start 06/20/17 at 20:30 Magnesium Oxide (Mag-Ox) 800 mg UNSCH PRN PO For Magnesium 1.2 - 1.6 mg/dL; Start 06/20/17 at 20:30 Magnesium Sulfate 2 gm/Sodium Chloride 100 ml @ 50 mls/hr UNSCH PRN IV For Magnesium 1.2 - 1.6 mg/dL; Start 06/20/17 at 20:30 Potassium Phosphate (K-Phos) 2,000 mg Q4H PRN PO For Phosphorus < 2.5 mg/dL Last administered on 06/22/17 13:07; Start 06/20/17 at 20:30 Sodium Phosphate 30 mmol/Sodium Chloride 250 ml @ 42 mls/hr UNSCH PRN IV For Phosphorus < 2.5 mg/dL Last administered on 06/22/17 22:14; Start 06/20/17 at 20:30 Potassium Phosphate (K-Phos) 2,000 mg UNSCH PRN PO/TUBE SEE LABEL COMMENTS; Start 06/20/17 at 20:30 Potassium Phosphate 30 mmol/ Sodium Chloride 260 ml @ 42 mls/hr UNSCH PRN IV SEE LABEL COMMENTS; Start 06/20/17 at 20:30 Flumazenil (Romazicon Inj) 0.2 mg Q1M PRN IV PUSH SEE LABEL COMMENTS; Start at 20:45 Lorazepam (Ativan) 1 mg Q4H PRN PO CIWA 8 - 10; Start 06/20/17 at 20:45 Lorazepam (Ativan Inj) 1 mg Q4H PRN IV PUSH CIWA 8 - 10; Start 06/20/17 at 20: 45 Lorazepam (Ativan) 2 mg Q2H PRN PO CIWA 11-14; Start 06/20/17 at 20:45 Lorazepam (Ativan Inj) 2 mg Q2H PRN IV PUSH CIWA 11-14; Start 06/20/17 at 20:45 Lorazepam (Ativan Inj) 2 mg Q1H PRN IV PUSH CIWA 15-20; Start 06/20/17 at 20:45 Lorazepam (Ativan Inj) 2 mg Q15M PRN IV PUSH CIWA > 20; Start 06/20/17 at 20:45 Levetriacetam 500 mg/Sodium Chloride 105 ml @ 420 mls/hr Q12HR IV Last administered on 06/24/17 09:16; Start 06/20/17 at 21:00 Multivitamins 10 ml/Thiamine HCl 100 mg/Folic Acid 1 mg/Sodium Chloride 511.2 ml @ 125 mls/hr ONCE ONCE IV Last administered on 06/21/17 02:57; Start at 02:00; Stop 06/21/17 at 06:05; Status DC Calcium Gluconate 1 gm/Sodium Chloride 110 ml @ 110 mls/hr ONCE ONCE IV Last administered on 06/21/17 11:52; Start 06/21/17 at 10:45; Stop 06/21/17 at 11:44 ; Status DC Hydralazine HCl (Apresoline Inj) 10 mg Q4H PRN IV PUSH SBP>160, DBP>90 Last administered on 06/23/17 18:39; Start 06/22/17 at 10:45 Vital Signs / I&O Vital Signs Date Time Temp Pulse Resp B/P (MAP) Pulse Ox O2 Delivery O2 Flow Rate FiO2 06/24/17 14:00 39 06/24/17 12:00 39 06/24/17 12:00 98.0 36 21 134/62 (86) 97 06/24/17 10:00 42 06/24/17 09:02 20 06/24/17 08:00 97.8 47 20 139/64 (89) 99 06/24/17 08:00 47 06/24/17 07:00 97 Room Air 06/24/17 06:00 40 06/24/17 04:49 96 06/24/17 04:00 98.2 40 15 150/72 (98) 96 06/24/17 04:00 40 06/24/17 02:00 42 06/24/17 00:30 98.1 42 18 134/63 (86) 97 06/24/17 00:24 96 06/24/17 00:00 42 06/23/17 22:00 46 06/23/17 20:00 98.2 44 17 128/74 (92) 98 06/23/17 20:00 44 06/23/17 20:00 98 Room Air 06/23/17 18:00 38 I/O 06/23/17 06/23/17 06/23/17 06/24/17 06/24/17 06/24/17 06:59 14:59 22:59 06:59 14:59 22:59 Intake Total 810 ml 1263 ml 1080 ml 105 ml Output Total 3 ml Balance 807 ml 1263 ml 1080 ml 105 ml Intake Oral 0 ml 240 ml 240 ml IV Total 810 ml 1023 ml 840 ml 105 ml Output Urine Total 3 ml # Voids 4 2 # Bowel Movements 0 0 Physical Exam GENERAL: In NAD SKIN: Warm and dry. HEAD: Normocephalic. EYES: No scleral icterus. No injection or drainage. NECK: Supple, trachea midline. No JVD or lymphadenopathy. CARDIOVASCULAR: Regular rate and rhythm without murmurs, gallops, or rubs. RESPIRATORY: Breath sounds equal bilaterally. No accessory muscle use. GASTROINTESTINAL: Abdomen soft, non-tender, nondistended. MUSCULOSKELETAL: No cyanosis, or edema. Laboratory Laboratory Tests Test 06/20/17 17:44 06/20/17 21:15 06/21/17 02:00 06/21/17 04:52 Total Creatine Kinase 645 U/L Creatine Kinase MB 7.9 NG/ML Creatine Kinase MB % 1.2 % Ethyl Alcohol Level 393 MG/DL Activated Partial Thromboplast Time 25.9 SEC Ammonia LESS THAN 10 MCMOL/L Nasal Screen MRSA (PCR) MRSA NOT DETECTED Prothrombin Time 11.2 SEC Prothromb Time International Ratio 1.0 RATIO Protein Corrected Calcium 7.0 MG/DL Blood Urea Nitrogen 9 MG/DL Creatinine 0.82 MG/DL Random Glucose 113 MG/DL Total Protein 7.2 GM/DL Albumin 3.2 GM/DL Calcium Level 7.0 MG/DL Phosphorus Level 1.9 MG/DL Magnesium Level 1.8 MG/DL Alkaline Phosphatase 49 U/L Aspartate Amino Transf (AST/SGOT) 28 U/L Alanine Aminotransferase (ALT/SGPT) 25 U/L Total Bilirubin 0.4 MG/DL Sodium Level 142 MEQ/L Potassium Level 3.5 MEQ/L Chloride Level 108 MEQ/L Carbon Dioxide Level 20.0 MEQ/L Test 06/22/17 05:54 06/23/17 10:05 White Blood Count 10.0 TH/MM3 Red Blood Count 4.28 MIL/MM3 Hemoglobin 13.6 GM/DL Hematocrit 41.8 % Mean Corpuscular Volume 97.5 FL Mean Corpuscular Hemoglobin 31.6 PG Mean Corpuscular Hemoglobin Concent 32.5 % Red Cell Distribution Width 13.1 % Platelet Count 178 TH/MM3 Mean Platelet Volume 7.7 FL Neutrophils (%) (Auto) 76.7 % Lymphocytes (%) (Auto) 14.1 % Monocytes (%) (Auto) 8.8 % Eosinophils (%) (Auto) 0.1 % Basophils (%) (Auto) 0.3 % Neutrophils # (Auto) 7.7 TH/MM3 Lymphocytes # (Auto) 1.4 TH/MM3 Monocytes # (Auto) 0.9 TH/MM3 Eosinophils # (Auto) 0.0 TH/MM3 Basophils # (Auto) 0.0 TH/MM3 CBC Comment DIFF FINAL Differential Comment Blood Urea Nitrogen 10 MG/DL Creatinine 0.73 MG/DL Random Glucose 118 MG/DL Calcium Level 7.5 MG/DL Phosphorus Level 1.7 MG/DL 2.8 MG/DL Magnesium Level 2.3 MG/DL Sodium Level 136 MEQ/L Potassium Level 3.9 MEQ/L Chloride Level 105 MEQ/L Carbon Dioxide Level 22.1 MEQ/L Anion Gap 9 MEQ/L Estimat Glomerular Filtration Rate 114 ML/MIN Assessment and Plan Problem List: (1) Sinus bradycardia ICD Codes: R00.1 - Bradycardia, unspecified (2) Intracerebral bleed due to trauma ICD Codes: S06.369A - Traumatic hemorrhage of cerebrum, unspecified, with loss of consciousness of unspecified duration, initial encounter Status: Acute (3) Alcohol intoxication ICD Codes: F10.929 - Alcohol use, unspecified with intoxication, unspecified Status: Acute Assessment and Plan Sinus bradycardia remains asymptomatic. Echo with normal LV systolic function. Continue monitoring. Remains stable from cardiac standpoint. Encouraged to quit drinking ETOH. Problem Qualifiers (1) Intracerebral bleed due to trauma: Qualified Codes: S06.369A - Traumatic hemorrhage of cerebrum, unspecified, with loss of consciousness of unspecified duration, initial encounter (2) Alcohol intoxication: Qualified Codes: F10.920 - Alcohol use, unspecified with intoxication, uncomplicated QuadrGiuliana schreiebr MD Jun 24, 2017 16:36
[2017-06-24] MEDS: LORazepam 1 MG TAB PO PRN (22:25)
[2017-06-25] VITALS (13 sets, daily range): BP systolic 127–164; BP diastolic 60–84; PULSE 36–50; RESP 12–24; TEMP 97.8–98.7; O2SAT 96–100
[2017-06-25] MEDS: CHLORHEXIDINE GLUCONATE 2 % 1 PACK (2 CLOTHS) TOP SCH (04:00)
[2017-06-25] MEDS: levETIRAcetam INJ 500 MG in SODIUM CHLORIDE 0.9% INJ 100 ML IV SCH ×2 (10:17→21:27)
[2017-06-25] MEDS: FAMOTIDINE 20 MG/2 ML VIAL IV PUSH SCH ×2 (10:17→21:28)
[2017-06-25] MEDS: DOCUSATE SODIUM 50 MG/SENNA 8.6 MG TAB PO SCH ×2 (10:17→21:27)
[2017-06-25] MEDS: SODIUM CHLORIDE 0.9% FLUSH 10 ML FLUSH SCH ×2 (10:17→21:27)
--- NOTE | 2017-06-25 11:56 | HHI.PR ---
Subjective Remarks Follow up intracranial hemorrhage, bradycardia. Patient has no complaints. Denies chest pain, lightheadedness. Objective Vitals Vital Signs Date Time Temp Pulse Resp B/P (MAP) Pulse Ox O2 Delivery O2 Flow Rate FiO2 06/25/17 06:00 40 06/25/17 04:00 98.6 38 16 145/67 (93) 96 06/25/17 04:00 38 06/25/17 03:12 97 06/25/17 02:00 41 06/25/17 00:00 98.7 40 12 127/60 (82) 96 06/25/17 00:00 40 06/24/17 22:29 13 06/24/17 22:00 44 06/24/17 20:00 41 06/24/17 20:00 98.7 40 16 141/72 (95) 97 06/24/17 19:00 97 Room Air 06/24/17 18:00 40 06/24/17 16:00 98.4 40 16 160/77 (104) 97 06/24/17 16:00 40 06/24/17 14:00 39 06/24/17 12:00 39 06/24/17 12:00 98.0 36 21 134/62 (86) 97 I/O 06/24/17 06/24/17 06/24/17 06/25/17 06/25/17 06/25/17 07:00 15:00 23:00 07:00 15:00 23:00 Intake Total 1080 ml 105 ml 1368 ml 968 ml Balance 1080 ml 105 ml 1368 ml 968 ml Intake Oral 240 ml 360 ml 360 ml IV Total 840 ml 105 ml 1008 ml 608 ml # Voids 2 5 2 # Bowel Movements 0 0 Result Diagram: 06/22/17 0554 06/22/17 0554 Imaging Last Impressions Head CT 06/21/17 0000 Signed Impressions: Service Date/Time: Wednesday, June 21, 2017 12:36 - CONCLUSION: No significant change in the intracranial hemorrhage, mostly right frontal subdural and intraparenchymal. Slightly increased right frontal lobe cerebral edema and now with 2 mm of midline shift present. Freddy Romo MD Objective Remarks General: No acute distress. Sitting up in a chair. Heart: Bradycardic. Lungs: Clear to auscultation bilaterally. No wheezes, rales, or rhonchi. Breathing is nonlabored. Abdomen: Soft, nontender, nondistended. Extremities: No lower extremity edema. No calf tenderness. Psych: Alert and oriented. Procedures None Urinary Catheter: No Vascular Central Line Catheter: No A/P Problem List: (1) Intracerebral bleed due to trauma ICD Code: S06.369A - Traumatic hemorrhage of cerebrum, unspecified, with loss of consciousness of unspecified duration, initial encounter Status: Acute (2) Hypertension ICD Code: I10 - Essential (primary) hypertension (3) Hypocalcemia ICD Code: E83.51 - Hypocalcemia (4) Hypophosphatemia ICD Code: E83.39 - Other disorders of phosphorus metabolism (5) Alcohol intoxication ICD Code: F10.929 - Alcohol use, unspecified with intoxication, unspecified Status: Acute Assessment and Plan 1. Intracranial bleed secondary to trauma: Subarachnoid and subdural hemorrhages noted on CT. Appreciate neurosurgery recommendations. Repeat CT showed slightly increased right frontal lobe edema and 2mm midline shift. Monitor neuro checks. Keppra for seizure prophylaxis. 2. Hypertension: Hydralazine as needed. 3. EtOH intoxication: [facility] protocol. Thiamine, folate, multivitamin. No signs of withdrawal at this time. 4. GI prophylaxis: Pepcid. 5. DVT prophylaxis: SCDs, ambulation. Avoid chemical prophylaxis secondary to intracranial hemorrhage. 6. Bradycardia: Echocardiogram shows low-normal EF. Uncertain etiology. Patient remains asymptomatic. Discharge Planning When cleared by neurosurgery and cardiology. Problem Qualifiers (1) Intracerebral bleed due to trauma: Qualified Codes: S06.369A - Traumatic hemorrhage of cerebrum, unspecified, with loss of consciousness of unspecified duration, initial encounter (2) Alcohol intoxication: Qualified Codes: F10.920 - Alcohol use, unspecified with intoxication, uncomplicated Shun Herr MD Jun 25, 2017 11:56
[2017-06-25] MEDS: SODIUM CHLOR 0.9% 1000 ML INJ 1,000 ML IV SCH ×2 (14:39→19:30)
[2017-06-25] MEDS: hydrALAZINE HCL 20 MG/ML VIAL IV PUSH PRN (16:09)
--- NOTE | 2017-06-25 17:26 | HHI.NSPN ---
Note Status Status: Progress Note Interval History Diagnosis head injury Interval History Chief Complaint: No complaints. Right frontal SDH, parenchymal hemorrhage and SAH. Interval History 06/21/17: Pt is awake this morning. He denies any headache, nausea or vomiting. No neck or low back pain. No chest or abdominal pain. He was reportedly very intoxicated when he came in and was not able to provide a good history. 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 He remembers drinking but doesn't recall anything about what happened to him. He denies any medical conditions such as epilepsy, cardiac disease, or syncope. 06/22/17: Pt awakens to voice. Has mild frontal headache. Periods of nausea and vomiting he states after he eats. No numbness and tingling in face or extremities. 06/24. Alert and awake. Reports severe headaches. Has developed episodes of bradycardia 06/25. Persistent bradycardia. Evaluated by food equipment service technician, Dr Reyez Labs, Micro, & Vital Signs Results Date Time Temp Pulse Resp B/P (MAP) Pulse Ox O2 Delivery O2 Flow Rate FiO2 06/25/17 07:00 96 Room Air 06/25/17 06:00 40 06/25/17 04:00 98.6 38 16 145/67 (93) 96 06/25/17 04:00 38 06/25/17 03:12 97 06/25/17 02:00 41 06/25/17 00:00 98.7 40 12 127/60 (82) 96 06/25/17 00:00 40 06/24/17 22:29 13 06/24/17 22:00 44 06/24/17 20:00 41 06/24/17 20:00 98.7 40 16 141/72 (95) 97 06/24/17 19:00 97 Room Air 06/24/17 18:00 40 Constitutional Vital Signs Date Time Temp Pulse Resp B/P (MAP) Pulse Ox O2 Delivery O2 Flow Rate FiO2 06/25/17 07:00 96 Room Air 06/25/17 06:00 40 06/25/17 04:00 98.6 38 16 145/67 (93) 96 06/25/17 04:00 38 06/25/17 03:12 97 06/25/17 02:00 41 06/25/17 00:00 98.7 40 12 127/60 (82) 96 06/25/17 00:00 40 06/24/17 22:29 13 06/24/17 22:00 44 06/24/17 20:00 41 06/24/17 20:00 98.7 40 16 141/72 (95) 97 06/24/17 19:00 97 Room Air 06/24/17 18:00 40 Physical Exam Mr Fontenot is alert, awake and oriented to time, place and person. Speech is fluent. Cranial nerve examination: pupils to be equal, round and reactive to light. Extra-ocular movements are intact. Facial motor and sensory function are normal and symmetrical. Gross hearing appears intact. Sternocleidomastoid and trapezius muscles are symmetrical. Other cranial nerves are intact. Neck is soft and supple with a good range of motion without pain. Muscle strength is normal in all muscle groups of both upper and lower extremities. Sensory examination is intact to light touch and pin prick in both the upper and lower extremities. Deep tendon reflexes are symmetrical in both upper and lower extremities. There is a bilateral plantar flexion response. Cerebellar examination is unremarkable, Medications Current Medications Current Medications Sodium Chloride 1,000 ml @ 1,000 mls/hr Q1H IV Last administered on 06/20/17 18:28; Start 06/20/17 at 17:19; Stop 06/20/17 at 18:18; Status DC Sodium Chloride 1,000 ml @ 84 mls/hr [id number] IV Last administered on 14:39; Start 06/20/17 at 20:20 Sodium Chloride (NS Flush) 2 ml UNSCH PRN .XX FLUSH AFTER USING IV ACCESS; Start 06/20/17 at 20:30 Sodium Chloride (NS Flush) 2 ml BID .XX Last administered on 06/25/17 10:17; Start 06/20/17 at 21:00 Acetaminophen (Tylenol) 650 mg Q6H PRN PO PAIN 1-10 AND/OR FEVER >101F; Start 06/20/17 at 20:30 Morphine Sulfate (Morphine Inj) 2 mg Q2H PRN IV PAIN SCALE 6 TO 10 Last administered on 06/24/17 22:24; Start 06/20/17 at 20:30 Famotidine (Pepcid Inj) 20 mg Q12HR IV PUSH Last administered on 06/25/17 10: 17; Start 06/20/17 at 21:00 Ondansetron HCl (Zofran Inj) 4 mg Q6H PRN IV NAUSEA OR VOMITING Last administered on 06/23/17 20:34; Start 06/20/17 at 20:30 Albuterol/ Ipratropium (Duoneb Neb) 1 ampule Q2HR NEB PRN INH WHEEZING; Start 06/20/17 at 20:30 Miscellaneous Information 1 Q361D XX Last administered on 06/20/17 22:23; Start 06/20/17 at 20:30 Chlorhexidine Gluconate (Chlorhexidine 2% Cloth) 3 pack Taper DAILY@04 TOP Last administered on 06/22/17 04:00; Start 06/21/17 at 04:00; Stop 06/17/18 at 03:59 Chlorhexidine Gluconate (Chlorhexidine 2% Cloth) 3 pack UNSCH PRN TOP HYGIENIC CARE; Start 06/20/17 at 20:30 Senna/Docusate Sodium (Angela-Colace) 1 tab BID PO Last administered on 10:17; Start 06/20/17 at 21:00 Magnesium Hydroxide (Milk Of Magnesia Liq) 30 ml Q12H PRN PO MILD - MODERATE CONSTIPATION; Start 06/20/17 at 20:30 Sennosides (Senokot) 17.2 mg Q12H PRN PO MODERATE - SEVERE CONSTIPATION; Start 06/20/17 at 20:30 Bisacodyl (Dulcolax Supp) 10 mg DAILY PRN RECTAL SEVERE CONSITIPATION; Start at 20:30 Lactulose (Lactulose Liq) 30 ml DAILY PRN PO SEVERE CONSITIPATION; Start at 20:30 Potassium Chloride 100 ml @ 50 mls/hr Q2H PRN IV For Potassium 2.8 - 3.2 mEq/L ; Start 06/20/17 at 20:30 Potassium Chloride 100 ml @ 50 mls/hr Q2H PRN IV For Potassium 2.8 - 3.2 mEq/L ; Start 06/20/17 at 20:30 Potassium Bicarb/ Potassium Chloride (K-Lyte Cl Eff) 50 meq UNSCH PRN PO For Potassium 3.3 - 3.5 mEq/L; Start 06/20/17 at 20:30 Potassium Chloride 100 ml @ 25 mls/hr UNSCH PRN IV For Potassium 3.3 - 3.5 mEq /L; Start 06/20/17 at 20:30 Potassium Chloride 100 ml @ 50 mls/hr Q2H PRN IV For Potassium 3.3 - 3.5 mEq/L ; Start 06/20/17 at 20:30 Magnesium Sulfate 4 gm/Sodium Chloride 100 ml @ 50 mls/hr UNSCH PRN IV For Magnesium 0.9 - 1.1 mg/dL; Start 06/20/17 at 20:30 Magnesium Oxide (Mag-Ox) 800 mg UNSCH PRN PO For Magnesium 1.2 - 1.6 mg/dL; Start 06/20/17 at 20:30 Magnesium Sulfate 2 gm/Sodium Chloride 100 ml @ 50 mls/hr UNSCH PRN IV For Magnesium 1.2 - 1.6 mg/dL; Start 06/20/17 at 20:30 Potassium Phosphate (K-Phos) 2,000 mg Q4H PRN PO For Phosphorus < 2.5 mg/dL Last administered on 06/22/17 13:07; Start 06/20/17 at 20:30 Sodium Phosphate 30 mmol/Sodium Chloride 250 ml @ 42 mls/hr UNSCH PRN IV For Phosphorus < 2.5 mg/dL Last administered on 06/22/17 22:14; Start 06/20/17 at 20:30 Potassium Phosphate (K-Phos) 2,000 mg UNSCH PRN PO/TUBE SEE LABEL COMMENTS; Start 06/20/17 at 20:30 Potassium Phosphate 30 mmol/ Sodium Chloride 260 ml @ 42 mls/hr UNSCH PRN IV SEE LABEL COMMENTS; Start 06/20/17 at 20:30 Flumazenil (Romazicon Inj) 0.2 mg Q1M PRN IV PUSH SEE LABEL COMMENTS; Start at 20:45 Lorazepam (Ativan) 1 mg Q4H PRN PO [facility] 8 - 10 Last administered on 06/24/17 22:25; Start 06/20/17 at 20:45 Lorazepam (Ativan Inj) 1 mg Q4H PRN IV PUSH [facility] 8 - 10; Start 06/20/17 at 20: 45 Lorazepam (Ativan) 2 mg Q2H PRN PO [facility] 11-14; Start 06/20/17 at 20:45 Lorazepam (Ativan Inj) 2 mg Q2H PRN IV PUSH [facility] 11-14; Start 06/20/17 at 20:45 Lorazepam (Ativan Inj) 2 mg Q1H PRN IV PUSH CI[facility] 15-20; Start 06/20/17 at 20:45 Lorazepam (Ativan Inj) 2 mg Q15M PRN IV PUSH CI[facility] > 20; Start 06/20/17 at 20:45 Levetriacetam 500 mg/Sodium Chloride 105 ml @ 420 mls/hr Q12HR IV Last administered on 06/25/17 10:17; Start 06/20/17 at 21:00 Multivitamins 10 ml/Thiamine HCl 100 mg/Folic Acid 1 mg/Sodium Chloride 511.2 ml @ 125 mls/hr ONCE ONCE IV Last administered on 06/21/17 02:57; Start at 02:00; Stop 06/21/17 at 06:05; Status DC Calcium Gluconate 1 gm/Sodium Chloride 110 ml @ 110 mls/hr ONCE ONCE IV Last administered on 06/21/17 11:52; Start 06/21/17 at 10:45; Stop 06/21/17 at 11:44 ; Status DC Hydralazine HCl (Apresoline Inj) 10 mg Q4H PRN IV PUSH SBP>160, DBP>90 Last administered on 06/25/17 16:09; Start 06/22/17 at 10:45 Plan Plan Remarks (1) Intracerebral bleed due to trauma: Qualified Codes: S06.369A - Traumatic hemorrhage of cerebrum, unspecified, with loss of consciousness of unspecified duration, initial encounter (2) Alcohol intoxication: Qualified Codes: F10.920 - Alcohol use, unspecified with intoxication, uncomplicated Attending Statement Neuro. Continue neuro checks. Continue nonoperative treatment Pulmonary. Continue aggressive pulmonary toilette, nasotracheal suction, and breathing treatments with nebulizers. Sinus bradycardia. Evaluated by food equipment service technician. Echo with normal LV systolic function. Continue monitoring. Remains stable from cardiac standpoint. Encouraged to quit drinking ETOH. ETOH abuse. Counseled. Daily PT and OT Nutrition. Tolerating Oral diet Renal. Continue to monitor closely urine output, BUN and creatinine Endocrine. Continue to Monitor serial Acu checks and SSI as needed in detail ID continue to monitor for signs of infection Continue Protonix for stress ulcer prophylaxis Continue Arsalan hose and SCD's for DVT prophylaxis Alex Hair MD Jun 25, 2017 17:26
--- NOTE | 2017-06-25 17:28 | HHI.NSPN ---
Note Status Status: Progress Note Interval History Diagnosis head injury Interval History NOTE FROM 06/24/2017 Chief Complaint: No complaints. Right frontal SDH, parenchymal hemorrhage and SAH. Interval History 06/21/17: Pt is awake this morning. He denies any headache, nausea or vomiting. No neck or low back pain. No chest or abdominal pain. He was reportedly very intoxicated when he came in and was not able to provide a good history. 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 He remembers drinking but doesn't recall anything about what happened to him. He denies any medical conditions such as epilepsy, cardiac disease, or syncope. 06/22/17: Pt awakens to voice. Has mild frontal headache. Periods of nausea and vomiting he states after he eats. No numbness and tingling in face or extremities. 06/24. Alert and awake. Reports severe headaches. Has developed episodes of bradycardia Labs, Micro, & Vital Signs Results NOTE FROM 06/24/2017 Date Time Temp Pulse Resp B/P (MAP) Pulse Ox O2 Delivery O2 Flow Rate FiO2 06/25/17 07:00 96 Room Air 06/25/17 06:00 40 06/25/17 04:00 98.6 38 16 145/67 (93) 96 06/25/17 04:00 38 06/25/17 03:12 97 06/25/17 02:00 41 06/25/17 00:00 98.7 40 12 127/60 (82) 96 06/25/17 00:00 40 06/24/17 22:29 13 06/24/17 22:00 44 06/24/17 20:00 41 06/24/17 20:00 98.7 40 16 141/72 (95) 97 06/24/17 19:00 97 Room Air 06/24/17 18:00 40 Constitutional NOTE FROM 06/24/2017 Vital Signs Date Time Temp Pulse Resp B/P (MAP) Pulse Ox O2 Delivery O2 Flow Rate FiO2 06/25/17 07:00 96 Room Air 06/25/17 06:00 40 06/25/17 04:00 98.6 38 16 145/67 (93) 96 06/25/17 04:00 38 06/25/17 03:12 97 06/25/17 02:00 41 06/25/17 00:00 98.7 40 12 127/60 (82) 96 06/25/17 00:00 40 06/24/17 22:29 13 06/24/17 22:00 44 06/24/17 20:00 41 06/24/17 20:00 98.7 40 16 141/72 (95) 97 06/24/17 19:00 97 Room Air 06/24/17 18:00 40 Physical Exam NOTE FROM 06/24/2017 Mr Fontenot is alert, awake and oriented to time, place and person. Speech is fluent. Cranial nerve examination: pupils to be equal, round and reactive to light. Extra-ocular movements are intact. Facial motor and sensory function are normal and symmetrical. Gross hearing appears intact. Sternocleidomastoid and trapezius muscles are symmetrical. Other cranial nerves are intact. Neck is soft and supple with a good range of motion without pain. Muscle strength is normal in all muscle groups of both upper and lower extremities. Sensory examination is intact to light touch and pin prick in both the upper and lower extremities. Deep tendon reflexes are symmetrical in both upper and lower extremities. There is a bilateral plantar flexion response. Cerebellar examination is unremarkable, Medications Current Medications NOTE FROM 06/24/2017 Current Medications Sodium Chloride 1,000 ml @ 1,000 mls/hr Q1H IV Last administered on 06/20/17 18:28; Start 06/20/17 at 17:19; Stop 06/20/17 at 18:18; Status DC Sodium Chloride 1,000 ml @ 84 mls/hr [id number] IV Last administered on 14:39; Start 06/20/17 at 20:20 Sodium Chloride (NS Flush) 2 ml UNSCH PRN .XX FLUSH AFTER USING IV ACCESS; Start 06/20/17 at 20:30 Sodium Chloride (NS Flush) 2 ml BID .XX Last administered on 06/25/17 10:17; Start 06/20/17 at 21:00 Acetaminophen (Tylenol) 650 mg Q6H PRN PO PAIN 1-10 AND/OR FEVER >101F; Start 06/20/17 at 20:30 Morphine Sulfate (Morphine Inj) 2 mg Q2H PRN IV PAIN SCALE 6 TO 10 Last administered on 06/24/17 22:24; Start 06/20/17 at 20:30 Famotidine (Pepcid Inj) 20 mg Q12HR IV PUSH Last administered on 06/25/17 10: 17; Start 06/20/17 at 21:00 Ondansetron HCl (Zofran Inj) 4 mg Q6H PRN IV NAUSEA OR VOMITING Last administered on 06/23/17 20:34; Start 06/20/17 at 20:30 Albuterol/ Ipratropium (Duoneb Neb) 1 ampule Q2HR NEB PRN INH WHEEZING; Start 06/20/17 at 20:30 Miscellaneous Information 1 Q361D XX Last administered on 06/20/17 22:23; Start 06/20/17 at 20:30 Chlorhexidine Gluconate (Chlorhexidine 2% Cloth) 3 pack Taper DAILY@04 TOP Last administered on 06/22/17 04:00; Start 06/21/17 at 04:00; Stop 06/17/18 at 03:59 Chlorhexidine Gluconate (Chlorhexidine 2% Cloth) 3 pack UNSCH PRN TOP HYGIENIC CARE; Start 06/20/17 at 20:30 Senna/Docusate Sodium (Angela-Colace) 1 tab BID PO Last administered on 10:17; Start 06/20/17 at 21:00 Magnesium Hydroxide (Milk Of Magnesia Liq) 30 ml Q12H PRN PO MILD - MODERATE CONSTIPATION; Start 06/20/17 at 20:30 Sennosides (Senokot) 17.2 mg Q12H PRN PO MODERATE - SEVERE CONSTIPATION; Start 06/20/17 at 20:30 Bisacodyl (Dulcolax Supp) 10 mg DAILY PRN RECTAL SEVERE CONSITIPATION; Start at 20:30 Lactulose (Lactulose Liq) 30 ml DAILY PRN PO SEVERE CONSITIPATION; Start at 20:30 Potassium Chloride 100 ml @ 50 mls/hr Q2H PRN IV For Potassium 2.8 - 3.2 mEq/L ; Start 06/20/17 at 20:30 Potassium Chloride 100 ml @ 50 mls/hr Q2H PRN IV For Potassium 2.8 - 3.2 mEq/L ; Start 06/20/17 at 20:30 Potassium Bicarb/ Potassium Chloride (K-Lyte Cl Eff) 50 meq UNSCH PRN PO For Potassium 3.3 - 3.5 mEq/L; Start 06/20/17 at 20:30 Potassium Chloride 100 ml @ 25 mls/hr UNSCH PRN IV For Potassium 3.3 - 3.5 mEq /L; Start 06/20/17 at 20:30 Potassium Chloride 100 ml @ 50 mls/hr Q2H PRN IV For Potassium 3.3 - 3.5 mEq/L ; Start 06/20/17 at 20:30 Magnesium Sulfate 4 gm/Sodium Chloride 100 ml @ 50 mls/hr UNSCH PRN IV For Magnesium 0.9 - 1.1 mg/dL; Start 06/20/17 at 20:30 Magnesium Oxide (Mag-Ox) 800 mg UNSCH PRN PO For Magnesium 1.2 - 1.6 mg/dL; Start 06/20/17 at 20:30 Magnesium Sulfate 2 gm/Sodium Chloride 100 ml @ 50 mls/hr UNSCH PRN IV For Magnesium 1.2 - 1.6 mg/dL; Start 06/20/17 at 20:30 Potassium Phosphate (K-Phos) 2,000 mg Q4H PRN PO For Phosphorus < 2.5 mg/dL Last administered on 06/22/17t 13:07; Start 06/20/17 at 20:30 Sodium Phosphate 30 mmol/Sodium Chloride 250 ml @ 42 mls/hr UNSCH PRN IV For Phosphorus < 2.5 mg/dL Last administered on 06/22/17t 22:14; Start 06/20/17 at 20:30 Potassium Phosphate (K-Phos) 2,000 mg UNSCH PRN PO/TUBE SEE LABEL COMMENTS; Start 06/20/17 at 20:30 Potassium Phosphate 30 mmol/ Sodium Chloride 260 ml @ 42 mls/hr UNSCH PRN IV SEE LABEL COMMENTS; Start 06/20/17 at 20:30 Flumazenil (Romazicon Inj) 0.2 mg Q1M PRN IV PUSH SEE LABEL COMMENTS; Start at 20:45 Lorazepam (Ativan) 1 mg Q4H PRN PO [facility] 8 - 10 Last administered on 06/24/17 22:25; Start 06/20/17 at 20:45 Lorazepam (Ativan Inj) 1 mg Q4H PRN IV PUSH [facility] 8 - 10; Start 06/20/17 at 20: 45 Lorazepam (Ativan) 2 mg Q2H PRN PO CI[facility] 11-14; Start 06/20/17 at 20:45 Lorazepam (Ativan Inj) 2 mg Q2H PRN IV PUSH CI[facility] 11-14; Start 06/20/17 at 20:45 Lorazepam (Ativan Inj) 2 mg Q1H PRN IV PUSH CI[facility] 15-20; Start 06/20/17 at 20:45 Lorazepam (Ativan Inj) 2 mg Q15M PRN IV PUSH CIWA > 20; Start 06/20/17 at 20:45 Levetriacetam 500 mg/Sodium Chloride 105 ml @ 420 mls/hr Q12HR IV Last administered on 06/25/17 10:17; Start 06/20/17 at 21:00 Multivitamins 10 ml/Thiamine HCl 100 mg/Folic Acid 1 mg/Sodium Chloride 511.2 ml @ 125 mls/hr ONCE ONCE IV Last administered on 06/21/17 02:57; Start at 02:00; Stop 06/21/17 at 06:05; Status DC Calcium Gluconate 1 gm/Sodium Chloride 110 ml @ 110 mls/hr ONCE ONCE IV Last administered on 06/21/17 11:52; Start 06/21/17 at 10:45; Stop 06/21/17 at 11:44 ; Status DC Hydralazine HCl (Apresoline Inj) 10 mg Q4H PRN IV PUSH SBP>160, DBP>90 Last administered on 06/25/17 16:09; Start 06/22/17 at 10:45 Plan Plan Remarks (1) Intracerebral bleed due to trauma: Qualified Codes: S06.369A - Traumatic hemorrhage of cerebrum, unspecified, with loss of consciousness of unspecified duration, initial encounter (2) Alcohol intoxication: Qualified Codes: F10.920 - Alcohol use, unspecified with intoxication, uncomplicated Attending Statement NOTE FROM 06/24/2017 Neuro. Continue neuro checks. Continue nonoperative treatment Pulmonary. Continue aggressive pulmonary toilette, nasotracheal suction, and breathing treatments with nebulizers. Sinus bradycardia. Consioder consult motor electrician. Echocardiogram. Continue monitoring. ETOH abuse. Counseled. Encouraged to quit drinking ETOH. Daily PT and OT Nutrition. Tolerating Oral diet Renal. Continue to monitor closely urine output, BUN and creatinine Endocrine. Continue to Monitor serial Acu checks and SSI as needed in detail ID continue to monitor for signs of infection Continue Protonix for stress ulcer prophylaxis Continue Arsalan hosdemond and SCD's for DVT prophylaxis Alex Hiar MD Jun 25, 2017 17:28
--- NOTE | 2017-06-25 17:32 | PD.CARD.PN ---
Subjective Subjective Remarks No CP or SOB, feels fine, HR improving Objective Vital Signs / I&O Vital Signs Date Time Temp Pulse Resp B/P (MAP) Pulse Ox O2 Delivery O2 Flow Rate FiO2 06/25/17 07:00 96 Room Air 06/25/17 06:00 40 06/25/17 04:00 98.6 38 16 145/67 (93) 96 06/25/17 04:00 38 06/25/17 03:12 97 06/25/17 02:00 41 06/25/17 00:00 98.7 40 12 127/60 (82) 96 06/25/17 00:00 40 06/24/17 22:29 13 06/24/17 22:00 44 06/24/17 20:00 41 06/24/17 20:00 98.7 40 16 141/72 (95) 97 06/24/17 19:00 97 Room Air 06/24/17 18:00 40 I/O 06/24/17 06/24/17 06/24/17 06/25/17 06/25/17 06/25/17 06:59 14:59 22:59 06:59 14:59 22:59 Intake Total 1080 ml 105 ml 1368 ml 968 ml Balance 1080 ml 105 ml 1368 ml 968 ml Intake Oral 240 ml 360 ml 360 ml IV Total 840 ml 105 ml 1008 ml 608 ml # Voids 2 5 2 # Bowel Movements 0 0 Physical Exam GENERAL: In NAD SKIN: Warm and dry. HEAD: Normocephalic. EYES: No scleral icterus. No injection or drainage. NECK: Supple, trachea midline. No JVD or lymphadenopathy. CARDIOVASCULAR: Regular rate and rhythm without murmurs, gallops, or rubs. RESPIRATORY: Breath sounds equal bilaterally. No accessory muscle use. GASTROINTESTINAL: Abdomen soft, non-tender, nondistended. MUSCULOSKELETAL: No cyanosis, or edema. Assessment and Plan Problem List: (1) Sinus bradycardia ICD Codes: R00.1 - Bradycardia, unspecified (2) Intracerebral bleed due to trauma ICD Codes: S06.369A - Traumatic hemorrhage of cerebrum, unspecified, with loss of consciousness of unspecified duration, initial encounter Status: Acute (3) Alcohol intoxication ICD Codes: F10.929 - Alcohol use, unspecified with intoxication, unspecified Status: Acute Assessment and Plan Sinus bradycardia improving, asymptomatic. Echo with normal LV systolic function. Continue monitoring. Remains stable from cardiac standpoint. Encouraged again to quit drinking ETOH. Increase activity. Problem Qualifiers (1) Intracerebral bleed due to trauma: Qualified Codes: S06.369A - Traumatic hemorrhage of cerebrum, unspecified, with loss of consciousness of unspecified duration, initial encounter (2) Alcohol intoxication: Qualified Codes: F10.920 - Alcohol use, unspecified with intoxication, uncomplicated Quadrat,Giuliana SOW Jun 25, 2017 17:32
[2017-06-25] MEDS: LORazepam 1 MG TAB PO PRN (21:27)
[2017-06-25] MEDS: MORPHINE SULFATE 4 MG/ML INJ IV PRN (21:55)
[2017-06-26] VITALS (9 sets, daily range): BP systolic 132–146; BP diastolic 61–74; PULSE 38–52; RESP 14–18; TEMP 98–98.7; O2SAT 98–100
[2017-06-26] MEDS: SODIUM CHLOR 0.9% 1000 ML INJ 1,000 ML IV SCH (03:41)
[2017-06-26] MEDS: CHLORHEXIDINE GLUCONATE 2 % 1 PACK (2 CLOTHS) TOP SCH (03:41)
[2017-06-26] MEDS: DOCUSATE SODIUM 50 MG/SENNA 8.6 MG TAB PO SCH (09:53)
[2017-06-26] MEDS: FAMOTIDINE 20 MG/2 ML VIAL IV PUSH SCH (09:54)
[2017-06-26] MEDS: levETIRAcetam INJ 500 MG in SODIUM CHLORIDE 0.9% INJ 100 ML IV SCH (09:54)
[2017-06-26] MEDS: SODIUM CHLORIDE 0.9% FLUSH 10 ML FLUSH SCH (09:55)
--- NOTE | 2017-06-26 10:24 | HHI.PR ---
Subjective Remarks Follow-up intracranial hemorrhage, bradycardia. Patient has no complaints at this time. Denies chest pain, lightheadedness, dizziness. He wants to go home. Objective Vitals Vital Signs Date Time Temp Pulse Resp B/P (MAP) Pulse Ox O2 Delivery O2 Flow Rate FiO2 06/26/17 08:00 41 06/26/17 08:00 98.3 46 18 141/63 (89) 100 06/26/17 07:00 99 Room Air 06/26/17 04:15 98 06/26/17 04:00 98.6 46 16 139/61 (87) 98 06/26/17 00:00 98.7 38 15 146/68 (94) 98 06/25/17 22:50 15 06/25/17 21:02 100 06/25/17 20:00 98.5 48 19 148/84 (105) 100 06/25/17 19:30 Room Air 06/25/17 18:00 50 06/25/17 16:00 98.0 40 16 140/70 (93) 97 06/25/17 16:00 40 06/25/17 14:00 40 06/25/17 12:00 36 06/25/17 12:00 97.9 36 24 164/79 (107) 98 I/O 06/25/17 06/25/17 06/25/17 06/26/17 06/26/17 06/26/17 06:59 14:59 22:59 06:59 14:59 22:59 Intake Total 968 ml 1158 ml 900 ml Balance 968 ml 1158 ml 900 ml Intake Oral 360 ml 480 ml 280 ml IV Total 608 ml 678 ml 620 ml # Voids 2 4 3 # Bowel Movements 0 0 0 Result Diagram: 06/22/17 0554 06/22/17 0554 Imaging Last Impressions Head CT 06/21/17 0000 Signed Impressions: Service Date/Time: Wednesday, June 21, 2017 12:36 - CONCLUSION: No significant change in the intracranial hemorrhage, mostly right frontal subdural and intraparenchymal. Slightly increased right frontal lobe cerebral edema and now with 2 mm of midline shift present. Freddy Romo MD Objective Remarks General: No acute distress. Sitting up in a chair. Heart: Bradycardic. Lungs: Clear to auscultation bilaterally. No wheezes, rales, or rhonchi. Breathing is nonlabored. Abdomen: Soft, nontender, nondistended. Extremities: No lower extremity edema. No calf tenderness. Psych: Alert and oriented. Procedures None Urinary Catheter: No Vascular Central Line Catheter: No A/P Problem List: (1) Intracerebral bleed due to trauma ICD Code: S06.369A - Traumatic hemorrhage of cerebrum, unspecified, with loss of consciousness of unspecified duration, initial encounter Status: Acute (2) Hypertension ICD Code: I10 - Essential (primary) hypertension (3) Hypocalcemia ICD Code: E83.51 - Hypocalcemia (4) Hypophosphatemia ICD Code: E83.39 - Other disorders of phosphorus metabolism (5) Alcohol intoxication ICD Code: F10.929 - Alcohol use, unspecified with intoxication, unspecified Status: Acute Assessment and Plan 1. Intracranial bleed secondary to trauma: Subarachnoid and subdural hemorrhages noted on CT. Appreciate neurosurgery recommendations. Repeat CT showed slightly increased right frontal lobe edema and 2mm midline shift. Monitor neuro checks. Keppra for seizure prophylaxis. 2. Hypertension: Hydralazine as needed. 3. EtOH intoxication: [facility] protocol. Thiamine, folate, multivitamin. No signs of withdrawal at this time. 4. GI prophylaxis: Pepcid. 5. DVT prophylaxis: SCDs, ambulation. Avoid chemical prophylaxis secondary to intracranial hemorrhage. 6. Bradycardia: Stable. Heart rate in 50s when patient is awake and out of bed. Heart rate drops to high 30s when patient is sleeping. Echocardiogram shows low- normal EF. Uncertain etiology. Patient remains asymptomatic. Discharge Planning When cleared by neurosurgery and cardiology. Problem Qualifiers (1) Intracerebral bleed due to trauma: Qualified Codes: S06.369A - Traumatic hemorrhage of cerebrum, unspecified, with loss of consciousness of unspecified duration, initial encounter (2) Alcohol intoxication: Qualified Codes: F10.920 - Alcohol use, unspecified with intoxication, uncomplicated Shun Herr MD Jun 26, 2017 10:24
--- NOTE | 2017-06-26 12:56 | PD.CARD.PN ---
Subjective Subjective Remarks No CP or SOB, feels better Objective Vital Signs / I&O Vital Signs Date Time Temp Pulse Resp B/P (MAP) Pulse Ox O2 Delivery O2 Flow Rate FiO2 06/26/17 12:00 98.0 49 14 132/74 (93) 100 06/26/17 12:00 49 06/26/17 10:00 49 06/26/17 08:00 41 06/26/17 08:00 98.3 46 18 141/63 (89) 100 06/26/17 07:00 99 Room Air 06/26/17 04:15 98 06/26/17 04:00 98.6 46 16 139/61 (87) 98 06/26/17 00:00 98.7 38 15 146/68 (94) 98 06/25/17 22:50 15 06/25/17 21:02 100 06/25/17 20:00 98.5 48 19 148/84 (105) 100 06/25/17 19:30 Room Air 06/25/17 18:00 50 06/25/17 16:00 98.0 40 16 140/70 (93) 97 06/25/17 16:00 40 06/25/17 14:00 40 I/O 06/25/17 06/25/17 06/25/17 06/26/17 06/26/17 06/26/17 07:00 15:00 23:00 07:00 15:00 23:00 Intake Total 968 ml 1158 ml 900 ml Balance 968 ml 1158 ml 900 ml Intake Oral 360 ml 480 ml 280 ml IV Total 608 ml 678 ml 620 ml # Voids 2 4 3 # Bowel Movements 0 0 0 Physical Exam GENERAL: In NAD SKIN: Warm and dry. HEAD: Normocephalic. EYES: No scleral icterus. No injection or drainage. NECK: Supple, trachea midline. No JVD or lymphadenopathy. CARDIOVASCULAR: Regular rate and rhythm without murmurs, gallops, or rubs. RESPIRATORY: Breath sounds equal bilaterally. No accessory muscle use. GASTROINTESTINAL: Abdomen soft, non-tender, nondistended. MUSCULOSKELETAL: No cyanosis, or edema. Assessment and Plan Problem List: (1) Sinus bradycardia ICD Codes: R00.1 - Bradycardia, unspecified (2) Intracerebral bleed due to trauma ICD Codes: S06.369A - Traumatic hemorrhage of cerebrum, unspecified, with loss of consciousness of unspecified duration, initial encounter Status: Acute (3) Alcohol intoxication ICD Codes: F10.929 - Alcohol use, unspecified with intoxication, unspecified Status: Acute Assessment and Plan Sinus bradycardia moderate but stable, asymptomatic. Echo with normal LV systolic function. Continue monitoring. Remains stable from cardiac standpoint. Encouraged again to quit drinking ETOH. Increase activity. No new cardiac issues. Problem Qualifiers (1) Intracerebral bleed due to trauma: Qualified Codes: S06.369A - Traumatic hemorrhage of cerebrum, unspecified, with loss of consciousness of unspecified duration, initial encounter (2) Alcohol intoxication: Qualified Codes: F10.920 - Alcohol use, unspecified with intoxication, uncomplicated QuadratGiuliana MD Jun 26, 2017 12:56
[2017-06-26] MEDS ORDERED: LEVE500 PO (14:03)
--- NOTE | 2017-06-26 14:03 | HHI.DCPOC ---
Discharge Care Plan Diagnosis: (1) Alcohol intoxication (2) Intracerebral bleed due to trauma (3) Hypocalcemia (4) Hypophosphatemia (5) Hypertension (6) Sinus bradycardia Goals to Promote Your Health * To prevent worsening of your condition and complications * To maintain your health at the optimal level Directions to Meet Your Goals Take your medications as prescribed Follow your dietary instruction Follow activity as directed Keep your appointments as scheduled Take your immunizations and boosters as scheduled If your symptoms worsen call your PCP, if no PCP go to Urgent Care Center or Emergency Room Smoking is Dangerous to Your Health. Avoid second hand smoke Call the 24-hour hour crisis hotline for domestic abuse at Shun Herr MD Jun 26, 2017 14:03
--- NOTE | 2017-06-26 15:22 | HHI.DS ---
Discharge Summary Admission Date Jun 20, 2017 at 18:54 Discharge Date: Jun 26, 2017 Admitting Diagnosis acute subarachnoid bleed, alcohol intoxication (1) Intracerebral bleed due to trauma ICD Code: S06.369A - Traumatic hemorrhage of cerebrum, unspecified, with loss of consciousness of unspecified duration, initial encounter Status: Acute (2) Hypertension ICD Code: I10 - Essential (primary) hypertension (3) Hypocalcemia ICD Code: E83.51 - Hypocalcemia (4) Hypophosphatemia ICD Code: E83.39 - Other disorders of phosphorus metabolism (5) Alcohol intoxication ICD Code: F10.929 - Alcohol use, unspecified with intoxication, unspecified Status: Acute Procedures None Brief History - From Admission 47-year-old male presents due to alcohol intoxication and headache. Patient is clearly intoxicated and states that he's been drinking a lot of alcohol today. Patient continues to tell me "Sorry boss I have not been behaving today "every time I ask him a question. He does have a history of traumatic subarachnoid hemorrhage in 2015. Patient does appear to have an abrasion to his right elbow but he does not know how he got this. The CAT scan of the head revealed traumatic subarachnoid, subdural and interfissural bleed. CBC/BMP: 06/22/17 0554 06/22/17 0554 Imaging Last Impressions Head CT 06/21/17 0000 Signed Impressions: Service Date/Time: Wednesday, June 21, 2017 12:36 - CONCLUSION: No significant change in the intracranial hemorrhage, mostly right frontal subdural and intraparenchymal. Slightly increased right frontal lobe cerebral edema and now with 2 mm of midline shift present. Freddy Romo MD PE at Discharge General: No acute distress. Sitting up in a chair. Heart: Bradycardic. Lungs: Clear to auscultation bilaterally. No wheezes, rales, or rhonchi. Breathing is nonlabored. Abdomen: Soft, nontender, nondistended. Extremities: No lower extremity edema. No calf tenderness. Psych: Alert and oriented. Hospital Course The patient was admitted for management of right frontal acute subdural and parenchymal hemorrhage. Neurosurgery was consulted. Repeat CT scan showed no significant change in the intracranial hemorrhage. There was slightly increased right frontal lobe cerebral edema. Neurosurgery recommended conservative management. The patient's symptoms resolved. He was noted to be bradycardic. Cardiology was consulted. Patient had no symptoms associated with the bradycardia. He was monitored closely in the intensive care unit. He was cleared for discharge by neurosurgery and cardiology. He was continued on Keppra for seizure prophylaxis. Pt Condition on Discharge: Stable Discharge Disposition: Discharge Home Discharge Time: > 30 minutes Discharge Instructions DIET: Follow Instructions for: As Tolerated, No Restrictions Activities you can perform: Regular-No Restrictions Follow up Referrals: Cardiology - 1 Week with Giuliana Reyez MD Neurosurgery - 1 Week with Alex Hair MD PCP Follow-up - 2 Weeks New Medications: Levetiracetam (Keppra) 500 Mg Tab 500 MG PO BID for Control Seizures, #60 TAB 0 Refills Shun Herr MD Jun 26, 2017 15:22
--- NOTE | 2017-06-26 17:25 | HHI.NSPN ---
Note Status Status: Progress Note Interval History Diagnosis head injury Interval History Chief Complaint: No complaints. Right frontal SDH, parenchymal hemorrhage and SAH. Interval History 06/21/17: Pt is awake this morning. He denies any headache, nausea or vomiting. No neck or low back pain. No chest or abdominal pain. He was reportedly very intoxicated when he came in and was not able to provide a good history. 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 He remembers drinking but doesn't recall anything about what happened to him. He denies any medical conditions such as epilepsy, cardiac disease, or syncope. 06/22/17: Pt awakens to voice. Has mild frontal headache. Periods of nausea and vomiting he states after he eats. No numbness and tingling in face or extremities. 06/24. Alert and awake. Reports severe headaches. Has developed episodes of bradycardia 06/25. Persistent bradycardia. Evaluated by global supply chain vice president, Dr Reyez 06/26. No new issues. Feels good Labs, Micro, & Vital Signs Results Date Time Temp Pulse Resp B/P (MAP) Pulse Ox O2 Delivery O2 Flow Rate FiO2 06/26/17 16:09 98.0 52 14 132/74 (93) 100 06/26/17 16:00 51 06/26/17 14:00 44 06/26/17 12:00 98.0 49 14 132/74 (93) 100 06/26/17 12:00 49 06/26/17 10:00 49 06/26/17 08:00 41 06/26/17 08:00 98.3 46 18 141/63 (89) 100 06/26/17 07:00 99 Room Air 06/26/17 04:15 98 06/26/17 04:00 98.6 46 16 139/61 (87) 98 06/26/17 00:00 98.7 38 15 146/68 (94) 98 06/25/17 22:50 15 06/25/17 21:02 100 06/25/17 20:00 98.5 48 19 148/84 (105) 100 06/25/17 19:30 Room Air 06/25/17 18:00 50 Constitutional Vital Signs Date Time Temp Pulse Resp B/P (MAP) Pulse Ox O2 Delivery O2 Flow Rate FiO2 06/26/17 16:09 98.0 52 14 132/74 (93) 100 06/26/17 16:00 51 06/26/17 14:00 44 06/26/17 12:00 98.0 49 14 132/74 (93) 100 06/26/17 12:00 49 06/26/17 10:00 49 06/26/17 08:00 41 06/26/17 08:00 98.3 46 18 141/63 (89) 100 06/26/17 07:00 99 Room Air 06/26/17 04:15 98 06/26/17 04:00 98.6 46 16 139/61 (87) 98 06/26/17 00:00 98.7 38 15 146/68 (94) 98 06/25/17 22:50 15 06/25/17 21:02 100 06/25/17 20:00 98.5 48 19 148/84 (105) 100 06/25/17 19:30 Room Air 06/25/17 18:00 50 Physical Exam Mr Fontenot is alert, awake and oriented to time, place and person. Speech is fluent. Cranial nerve examination: pupils to be equal, round and reactive to light. Extra-ocular movements are intact. Facial motor and sensory function are normal and symmetrical. Gross hearing appears intact. Sternocleidomastoid and trapezius muscles are symmetrical. Other cranial nerves are intact. Neck is soft and supple with a good range of motion without pain. Muscle strength is normal in all muscle groups of both upper and lower extremities. Sensory examination is intact to light touch and pin prick in both the upper and lower extremities. Deep tendon reflexes are symmetrical in both upper and lower extremities. There is a bilateral plantar flexion response. Cerebellar examination is unremarkable, Medications Current Medications Current Medications Sodium Chloride 1,000 ml @ 1,000 mls/hr Q1H IV Last administered on 06/20/17t 18:28; Start 06/20/17 at 17:19; Stop 06/20/17 at 18:18; Status DC Sodium Chloride 1,000 ml @ 84 mls/hr [id number] IV Last administered on 03:41; Start 06/20/17 at 20:20 Sodium Chloride (NS Flush) 2 ml UNSCH PRN .XX FLUSH AFTER USING IV ACCESS; Start 06/20/17 at 20:30 Sodium Chloride (NS Flush) 2 ml BID .XX Last administered on 06/26/17 09:55; Start 06/20/17 at 21:00 Acetaminophen (Tylenol) 650 mg Q6H PRN PO PAIN 1-10 AND/OR FEVER >101F; Start 06/20/17 at 20:30 Morphine Sulfate (Morphine Inj) 2 mg Q2H PRN IV PAIN SCALE 6 TO 10 Last administered on 06/25/17 21:55; Start 06/20/17 at 20:30 Famotidine (Pepcid Inj) 20 mg Q12HR IV PUSH Last administered on 06/26/17 09: 54; Start 06/20/17 at 21:00 Ondansetron HCl (Zofran Inj) 4 mg Q6H PRN IV NAUSEA OR VOMITING Last administered on 06/23/17 20:34; Start 06/20/17 at 20:30 Albuterol/ Ipratropium (Duoneb Neb) 1 ampule Q2HR NEB PRN INH WHEEZING; Start 06/20/17 at 20:30 Miscellaneous Information 1 [id number] XX Last administered on 06/20/17 22:23; Start 06/20/17 at 20:30 Chlorhexidine Gluconate (Chlorhexidine 2% Cloth) Taper DAILY@04 TOP Last administered on 06/22/17 04:00; Start 06/21/17 at 04:00; Stop 06/17/18 at 03:59 Chlorhexidine Gluconate (Chlorhexidine 2% Cloth) 3 pack UNSCH PRN TOP HYGIENIC CARE; Start 06/20/17 at 20:30 Senna/Docusate Sodium (Angela-Colace) 1 tab BID PO Last administered on 09:53; Start 06/20/17 at 21:00 Magnesium Hydroxide (Milk Of Magnesia Liq) 30 ml Q12H PRN PO MILD - MODERATE CONSTIPATION; Start 06/20/17 at 20:30 Sennosides (Senokot) 17.2 mg Q12H PRN PO MODERATE - SEVERE CONSTIPATION; Start 06/20/17 at 20:30 Bisacodyl (Dulcolax Supp) 10 mg DAILY PRN RECTAL SEVERE CONSITIPATION; Start at 20:30 Lactulose (Lactulose Liq) 30 ml DAILY PRN PO SEVERE CONSITIPATION; Start at 20:30 Potassium Chloride 100 ml @ 50 mls/hr Q2H PRN IV For Potassium 2.8 - 3.2 mEq/L ; Start 06/20/17 at 20:30 Potassium Chloride 100 ml @ 50 mls/hr Q2H PRN IV For Potassium 2.8 - 3.2 mEq/L ; Start 06/20/17 at 20:30 Potassium Bicarb/ Potassium Chloride (K-Lyte Cl Eff) 50 meq UNSCH PRN PO For Potassium 3.3 - 3.5 mEq/L; Start 06/20/17 at 20:30 Potassium Chloride 100 ml @ 25 mls/hr UNSCH PRN IV For Potassium 3.3 - 3.5 mEq /L; Start 06/20/17 at 20:30 Potassium Chloride 100 ml @ 50 mls/hr Q2H PRN IV For Potassium 3.3 - 3.5 mEq/L ; Start 06/20/17 at 20:30 Magnesium Sulfate 4 gm/Sodium Chloride 100 ml @ 50 mls/hr UNSCH PRN IV For Magnesium 0.9 - 1.1 mg/dL; Start 06/20/17 at 20:30 Magnesium Oxide (Mag-Ox) 800 mg UNSCH PRN PO For Magnesium 1.2 - 1.6 mg/dL; Start 06/20/17 at 20:30 Magnesium Sulfate 2 gm/Sodium Chloride 100 ml @ 50 mls/hr UNSCH PRN IV For Magnesium 1.2 - 1.6 mg/dL; Start 06/20/17 at 20:30 Potassium Phosphate (K-Phos) 2,000 mg Q4H PRN PO For Phosphorus < 2.5 mg/dL Last administered on 06/22/17 13:07; Start 06/20/17 at 20:30 Sodium Phosphate 30 mmol/Sodium Chloride 250 ml @ 42 mls/hr UNSCH PRN IV For Phosphorus < 2.5 mg/dL Last administered on 06/22/17 22:14; Start 06/20/17 at 20:30 Potassium Phosphate (K-Phos) 2,000 mg UNSCH PRN PO/TUBE SEE LABEL COMMENTS; Start 06/20/17 at 20:30 Potassium Phosphate 30 mmol/ Sodium Chloride 260 ml @ 42 mls/hr UNSCH PRN IV SEE LABEL COMMENTS; Start 06/20/17 at 20:30 Flumazenil (Romazicon Inj) 0.2 mg Q1M PRN IV PUSH SEE LABEL COMMENTS; Start at 20:45 Lorazepam (Ativan) 1 mg Q4H PRN PO CIWA 8 - 10 Last administered on 06/25/17 21:27; Start 06/20/17 at 20:45 Lorazepam (Ativan Inj) 1 mg Q4H PRN IV PUSH CIWA 8 - 10; Start 06/20/17 at 20: 45 Lorazepam (Ativan) 2 mg Q2H PRN PO CIWA 11-14; Start 06/20/17 at 20:45 Lorazepam (Ativan Inj) 2 mg Q2H PRN IV PUSH CIWA 11-14; Start 06/20/17 at 20:45 Lorazepam (Ativan Inj) 2 mg Q1H PRN IV PUSH CIWA 15-20; Start 06/20/17 at 20:45 Lorazepam (Ativan Inj) 2 mg Q15M PRN IV PUSH CIWA > 20; Start 06/20/17 at 20:45 Levetriacetam 500 mg/Sodium Chloride 105 ml @ 420 mls/hr Q12HR IV Last administered on 06/26/17 09:54; Start 06/20/17 at 21:00 Multivitamins 10 ml/Thiamine HCl 100 mg/Folic Acid 1 mg/Sodium Chloride 511.2 ml @ 125 mls/hr ONCE ONCE IV Last administered on 06/21/17 02:57; Start at 02:00; Stop 06/21/17 at 06:05; Status DC Calcium Gluconate 1 gm/Sodium Chloride 110 ml @ 110 mls/hr ONCE ONCE IV Last administered on 06/21/17 11:52; Start 06/21/17 at 10:45; Stop 06/21/17 at 11:44 ; Status DC Hydralazine HCl (Apresoline Inj) 10 mg Q4H PRN IV PUSH SBP>160, DBP>90 Last administered on 8/30/17at 16:09; Start 06/22/17 at 10:45 Plan Plan Remarks (1) Intracerebral bleed due to trauma: Qualified Codes: S06.369A - Traumatic hemorrhage of cerebrum, unspecified, with loss of consciousness of unspecified duration, initial encounter (2) Alcohol intoxication: Qualified Codes: F10.920 - Alcohol use, unspecified with intoxication, uncomplicated Attending Statement Neuro. Continue neuro checks. Pulmonary. Continue aggressive pulmonary toilette, nasotracheal suction, and breathing treatments with nebulizers. Sinus bradycardia. Consioder consult global supply chain vice president. Echocardiogram. Continue monitoring. ETOH abuse. Counseled again today. Encouraged to quit drinking ETOH. Daily PT and OT Nutrition. Tolerating Oral diet Renal. Continue to monitor closely urine output, BUN and creatinine Endocrine. Continue to Monitor serial Acu checks and SSI as needed in detail ID continue to monitor for signs of infection Continue Protonix for stress ulcer prophylaxis Continue Arsalan hose and SCD's for DVT prophylaxis Alex Hair MD Jun 26, 2017 17:25
== END 2017-06-26 17:51 | disposition home or self-care (01) | DRG 82 ==
LOC: NEPC 15:29 → NEDH 18:54 → N03B 21:40
PROVIDERS: ADMIT Family Medicine; ATTEND Family Medicine
DX: S06.5X9A Traumatic subdural hemorrhage with loss of consciousness of unspecified duration, initial encounter (principal); G93.6 Cerebral edema; S06.6X9A Traumatic subarachnoid hemorrhage with loss of consciousness of unspecified duration, initial encounter; I11.0 Hypertensive heart disease with heart failure; S06.369A Traumatic hemorrhage of cerebrum, unspecified, with loss of consciousness of unspecified duration, initial encounter; S50.311A Abrasion of right elbow, initial encounter; F10.129 Alcohol abuse with intoxication, unspecified; R00.1 Bradycardia, unspecified; E83.51 Hypocalcemia; E83.39 Other disorders of phosphorus metabolism; Y90.8 Blood alcohol level of 240 mg/100 ml or more; Z87.828 Personal history of other (healed) physical injury and trauma; Z87.891 Personal history of nicotine dependence
CPT/HCPCS: 70450; 76937; 80048; 80053; 80307; 82140; 82550; 82552; 83735; 84100; 85025; 85610; 85730; 87641; 93306; J0360; J0610; J1953; J2270; J2405; J3411; J7030; J7040; J7050

== ENCOUNTER 2017-07-30 15:31 | Observation (INO) | payer SELFPAY ==
[~2017-07-30] VITALS: Ht 180.3 cm; Wt 86.0 kg
[~2017-07-30 15:31] MED LIST changes: -LIOT25 PO
[2017-07-30 15:32] VITALS: BP 179/109; PULSE 82; RESP 18; TEMP 99.1; O2SAT 98
--- NOTE | 2017-07-30 15:45 | PD ---
Physical Exam Date Seen by Provider: Jul 30, 2017 Time Seen by Provider: 15:44 Narrative 47 yo male here for evaluation of dizzyness. Has a SAH. Was admitted. Has not been able to follow. States that he has pain and dizziness when he faces down or foward with his head. He is here for this. No new injuries. No blood thinners. Vitals stable in triage. Awaiting bed placement. Data Data Last Documented VS Vital Signs Date Time Temp Pulse Resp B/P (MAP) Pulse Ox O2 Delivery O2 Flow Rate FiO2 07/30/17 15:32 99.1 82 18 179/109 (132) 98 Room Air [facility] Medical Record Reviewed: Yes Supervised Visit with NEELA: No Vasquez Lala Jul 30, 2017 15:45
[2017-07-30 16:32] LABS: AUTOMATED NEUTROPHIL # 4.1 TH/MM3 (1.8-7.7); BASOPHIL % 0.4 % (0.0-2.0); EOSINOPHIL # 0.2 TH/MM3 (0-0.4); EOSINOPHIL % 3.2 % (0.0-4.0); HEMO FLAGS DIFF FINAL; LYMPH % 23.8 % (9.0-44.0); LYMPHOCYTE # 1.5 TH/MM3 (1.0-4.8); MEAN CELL VOLUME 95.1 FL (80.0-100.0); MEAN CORPUSCULAR HEMOGLOBIN 32.3 PG (27.0-34.0); MONO % 9.6 % (0.0-8.0); PLATELET COUNT 216 TH/MM3 (150-450); RED BLOOD COUNT 4.73 MIL/MM3 (4.50-5.90); RED CELL DISTRIBUTION WIDTH 13.3 % (11.6-17.2); WHITE BLOOD COUNT 6.5 TH/MM3 (4.0-11.0)
[2017-07-30 16:43] LABS: APTT (PATIENT) 29.2 SEC (24.3-30.1); INTERNATIONAL NORMALIZED RATIO 1.1 RATIO; PROTHROMBIN TIME - PATIENT 11.7 SEC (9.8-11.6)
[2017-07-30 16:55] LABS: BICARBONATE 28.2 MEQ/L (21.0-32.0); MAGNESIUM 2.2 MG/DL (1.5-2.5)
[2017-07-30] MEDS ORDERED: SODIUM CHLORIDE 0.9% FLUSH 5 ML FLUSH IV FLUSH PRN (17:00)
--- NOTE | 2017-07-30 17:08 | PD ---
HPI Chief Complaint: Head Injury Time Seen by Provider: 16:53 Travel History International Travel<30 days: No Contact w/Intl Traveler<30days: No Traveled to known affect area: No History of Present Illness HPI Patient comes in complaining of dizziness over the past week whenever he leans forward. Patient denies any pain with this, trauma, palpitations, change in vision, chest pain, shortness of breath, fevers, numbness or tingling anywhere, nausea, vomiting, or loss change in bowel or bladder. Patient symptoms improve standing up or sitting up. Aside from leaning forward nothing makes it worse. PFSH Past Medical History Arthritis: No Blood Disorders: No Cancer: No Cardiovascular Problems: No Diminished Hearing: No Endocrine: No Genitourinary: No Hypertension: Yes Immune Disorder: No Musculoskeletal: Yes Neurologic: No Psychiatric: No Reproductive: No Respiratory: No Past Surgical History Abdominal Surgery: No AICD: No Arteriovenous Shunt: No Cardiac Surgery: No Ear Surgery: No Endocrine Surgery: No Eye Surgery: No Genitourinary Surgery: No Gynecologic Surgery: No Insulin Pump: No Joint Replacement: No Oral Surgery: No Pacemaker: No Thoracic Surgery: No Other Surgery: Yes Social History Alcohol Use: Yes ("a couple beers a day") Tobacco Use: No (quit 10 yrs ago) Substance Use: No Allergies-Medications (Allergen,Severity, Reaction): Coded Allergies: No Known Allergies (Verified , 07/30/17) Reported Meds & Prescriptions Reported Meds & Active Scripts Active Keppra (Levetiracetam) 500 Mg Tab 500 Mg PO BID Review of Systems Except as stated in HPI: all other systems reviewed are Neg Physical Exam Narrative GENERAL: Well-developed, overly nourished, in no acute distress, and non-ill appearing. SKIN: Focused skin assessment warm and dry. HEAD: Atraumatic. Normocephalic. EYES: Pupils equal and round. EOMI. No scleral icterus. No injection or drainage. ENT: No nasal bleeding or discharge. Mucous membranes pink and moist. NECK: Trachea midline. No JVD. Supple. No nuclear rigidity. CARDIOVASCULAR: Regular rate and rhythm. No murmur appreciated. RESPIRATORY: No accessory muscle use. No respiratory distress. Clear to auscultation. Breath sounds equal bilaterally. MUSCULOSKELETAL: No obvious deformities. No clubbing. No cyanosis. No edema. Full range of motion. NEUROLOGICAL: Awake and alert. No obvious cranial nerve deficits. Motor grossly within normal limits. Normal speech. PSYCHIATRIC: Appropriate mood and affect; insight and judgment normal. Data Data Last Documented VS Vital Signs Date Time Temp Pulse Resp B/P (MAP) Pulse Ox O2 Delivery O2 Flow Rate FiO2 07/30/17 19:32 70 18 156/87 (110) 98 Room Air 07/30/17 15:32 99.1 Orders Orders Electrocardiogram (07/30/17 15:46) Complete Blood Count With Diff (07/30/17 15:46) Basic Metabolic Panel (Bmp) (07/30/17 15:46) Prothrombin Time / Inr (Pt) (07/30/17 15:46) Act Partial Throm Time (Ptt) (07/30/17 15:46) Magnesium (Mg) (07/30/17 15:46) Thyroid Stimulating Hormone (07/30/17 15:46) Ct Brain W/O Iv Contrast(Rout) (07/30/17 15:46) Alcohol (Ethanol) (07/30/17 16:53) Blood Glucose (07/30/17 16:53) Ecg Monitoring (07/30/17 16:53) Iv Access Insert/Monitor (07/30/17 16:53) Oximetry (07/30/17 16:53) Sodium Chloride 0.9% Flush (Ns Flush) (07/30/17 17:00) Drug Screen, Random Urine (07/30/17 16:53) Urinalysis - C+S If Indicated (07/30/17 16:55) Orthostatic Vital Signs (07/30/17 17:01) Sodium Chlor 0.9% 1000 Ml Inj (Ns 1000 M (07/30/17 17:45) Consult Neurology (07/30/17 ) Admit Order (Ed Use Only) (07/30/17 19:33) Labs Laboratory Tests Test 07/30/17 16:10 07/30/17 17:08 White Blood Count 6.5 TH/MM3 Red Blood Count 4.73 MIL/MM3 Hemoglobin 15.3 GM/DL Hematocrit 45.0 % Mean Corpuscular Volume 95.1 FL Mean Corpuscular Hemoglobin 32.3 PG Mean Corpuscular Hemoglobin Concent 34.0 % Red Cell Distribution Width 13.3 % Platelet Count 216 TH/MM3 Mean Platelet Volume 7.1 FL Neutrophils (%) (Auto) 63.0 % Lymphocytes (%) (Auto) 23.8 % Monocytes (%) (Auto) 9.6 % Eosinophils (%) (Auto) 3.2 % Basophils (%) (Auto) 0.4 % Neutrophils # (Auto) 4.1 TH/MM3 Lymphocytes # (Auto) 1.5 TH/MM3 Monocytes # (Auto) 0.6 TH/MM3 Eosinophils # (Auto) 0.2 TH/MM3 Basophils # (Auto) 0.0 TH/MM3 CBC Comment DIFF FINAL Differential Comment Prothrombin Time 11.7 SEC Prothromb Time International Ratio 1.1 RATIO Activated Partial Thromboplast Time 29.2 SEC Blood Urea Nitrogen 9 MG/DL Creatinine 1.02 MG/DL Random Glucose 89 MG/DL Calcium Level 8.7 MG/DL Magnesium Level 2.2 MG/DL Sodium Level 131 MEQ/L Potassium Level 4.0 MEQ/L Chloride Level 97 MEQ/L Carbon Dioxide Level 28.2 MEQ/L Anion Gap 6 MEQ/L Estimat Glomerular Filtration Rate 78 ML/MIN Thyroid Stimulating Hormone 3rd Gen 1.510 uIU/ML Ethyl Alcohol Level LESS THAN 3 MG/DL Urine Color LIGHT-YELLOW Urine Turbidity CLEAR Urine pH 5.5 Urine Specific [place] 1.011 Urine Protein NEG mg/dL Urine Glucose (UA) NEG mg/dL Urine Ketones NEG mg/dL Urine Occult Blood NEG Urine Nitrite NEG Urine Bilirubin NEG Urine Urobilinogen LESS THAN 2.0 MG/DL Urine Leukocyte Esterase NEG Urine RBC 1 /hpf Urine WBC 1 /hpf Urine Squamous Epithelial Cells <1 /hpf Microscopic Urinalysis Comment CATH-CULT NOT IND MDM Medical Decision Making Medical Screen Exam Complete: Yes Emergency Medical Condition: Yes Interpretation(s) EKG reviewed by Dr. Zamudio shows sinus rhythm with a ventricular rate of 70. No STEMI. CT the head read by the radiologist shows: Findings most consistent with interval evolution of right frontal mid convexity infarct and adjacent subdural hematoma. Small amount of continued increased density in the subdural collection may reflect calcification although intercurrent small hemorrhage cannot be excluded. Clinical correlation is recommended. Differential Diagnosis Electrolyte abnormality, alcohol intoxication, CVA, TIA, UTI, other Narrative Course Patient seen and examined. Initial laboratory and radiological studies were ordered. Patient given IV fluid. After reviewing CT results neurosurgery was consulted who recommends, neurology consult and admission to hospitalist. Spoke with the neurologist recommended just watching the patient overnight. Discussed all findings and plan of care with patient, who was agreeable for admission. All questions were answered. Discussed patient with Dr. Zamudio, who is in agreement with plan of care and disposition. Discussed patient with hospitalist was agreeable to admit the patient. Stable throughout ED course. Physician Communication Physician Communication [address] Hair recommends patient placed in observation to hospitalist with a neurology consult and he'll be happy to consult. [address] Garza, recommends just watching the patient overnight consulting neurology in the morning. [address] Oilva, who is agreeable to admit the patient. Diagnosis Primary Impression: Dizziness Additional Impression: Hyponatremia Admitting Information Admitting Physician Requests: Observation Condition: Stable Andrea Arias Jul 30, 2017 17:08
[2017-07-30 17:15] VITALS: BP 137/70; RESP 18
[2017-07-30 17:16] VITALS: BP 163/89; RESP 18
[2017-07-30 17:37] LABS: BLOOD, URINE NEG (NEG); GLUCOSE,URINE NEG (NEG); KETONE, URINE NEG (NEG); NITRITE,URINE NEG (NEG); PH, URINE 5.5 (5.0-8.5); SQUAMOUS EPITHELIAL CELL URINE <1 /hpf (0-5); URINE COLOR LIGHT-YELLOW (YELLW/STRAW)
[2017-07-30 17:40] LABS: COMMENT (UR) CATH-CULT NOT IND; CULTURE IF INDICATED CATH CULTURE NOT IND
[2017-07-30] MEDS ORDERED: SODIUM CHLOR 0.9% 1000 ML INJ 1,000 ML IV ONE (17:45)
--- NOTE | 2017-07-30 17:47 | RADRPT ---
EXAM DATE/TIME: 07/30/2017 17:21 [facility] COMPARISON: CT BRAIN W/O CONTRAST, June 21, 2017, 12:36. INDICATIONS : Dizziness for one month. RADIATION DOSE: 56.35 CTDIvol (mGy) MEDICAL HISTORY : Hypertension. SURGICAL HISTORY : None. ENCOUNTER: Initial ACUITY: 1 month PAIN SCALE: 3/10 LOCATION: Bilateral cranial TECHNIQUE: Multiple contiguous axial images were obtained of the head. Using automated exposure control and adj ustment of the mA and/or kV according to patient size, radiation dose was kept as low as reasonably a chievable to obtain optimal diagnostic quality images. DICOM format image data is available electro nically for review and comparison. FINDINGS: CEREBRUM: Gyriform increased density and instillation in the right frontal mid convexity. Associated approximat naseem 1 cm heterogeneous extra-axial collection corresponding to region of prior subdural hematoma. The re is ex-vacuo dilatation of the right ventricle frontal horn. Ventricles are otherwise stable withou t evidence for hydrocephalus. No intraventricular blood products. No significant midline shift or int ra-axial hemorrhage. POSTERIOR FOSSA: The cerebellum and brainstem are intact. The 4th ventricle is midline. The cerebellopontine angle i s unremarkable. EXTRACRANIAL: The visualized portion of the orbits is intact. SKULL: The calvaria is intact. No evidence of skull fracture. CONCLUSION: 1. Findings most consistent with interval evolution of right frontal mid convexity infarct and adjace nt subdural hematoma. Small amount of continued increased density in the subdural collection may refl ect calcification although intercurrent small hemorrhage cannot be excluded. Clinical correlation is recommended. Lexx Benz MD on July 30, 2017 at 17:36 Board Certified Radiologist. This report was verified electronically.
[2017-07-30 19:32] VITALS: BP 156/87; PULSE 70; RESP 18; O2SAT 98
[2017-07-30] MEDS ORDERED: IOHEXOL 350 MG/ML 10 ML VIAL (for RAD DIAG) IVCONTRAST ONE (19:36)
[2017-07-30] MEDS ORDERED: SODIUM CHLORIDE 0.9% FLUSH 10 ML FLUSH IV FLUSH PRN (20:15)
[2017-07-30] MEDS ORDERED: NALOXONE HCL 0.4 MG/ML AMP IV PUSH PRN (20:15)
[2017-07-30 21:22] VITALS: BP 151/83; PULSE 60; RESP 16; TEMP 98.1; O2SAT 98
[2017-07-30] MEDS: SODIUM CHLORIDE 0.9% FLUSH 10 ML FLUSH IV FLUSH SCH (21:54)
[2017-07-31] VITALS (10 sets, daily range): BP systolic 129–143; BP diastolic 66–82; PULSE 51–62; RESP 16–20; TEMP 97.9–98.3; O2SAT 96–98
--- NOTE | 2017-07-31 02:58 | HHI.HP ---
[facility] Service [facility] Primary Care Physician No Primary Care Physician Admission Diagnosis dizziness Diagnoses: Travel History International Travel<30 Days: No Contact w/Intl Traveler <30 Da: No Traveled to Known Affected Are: No History of Present Illness dizziness whenever he moves his head up adn down mild headache no nausea no vomitng no syncope no trauma no accidents since discharge at discharge, was given seizure meds also got tylenol pm for sleep no bloood thinners no asa Review of Systems Except as stated in HPI: all other systems reviewed are Neg Past Family Social History Past Medical History htn- was not discharged on antihypertensives but was getting prn htn meds traumatic ic bleed from fall 06/20/17 \\ Past Surgical History left LE ORIF Allergies: Coded Allergies: No Known Allergies (Verified , 07/30/17) Family History dad and his brothers- kidney problem- one is on dialysis Social History quit smoking 10 years ago drink mostly on weekends, drinks heavily when he drinks Physical Exam Vital Signs Vital Signs Date Time Temp Pulse Resp B/P (MAP) Pulse Ox O2 Delivery O2 Flow Rate FiO2 07/31/17 02:31 98.1 53 16 132/68 (89) 97 07/30/17 21:22 98.1 60 16 151/83 (105) 98 07/30/17 20:54 07/30/17 19:32 70 18 156/87 (110) 98 Room Air 07/30/17 17:16 75 18 163/89 (113) 07/30/17 17:15 60 18 137/70 (92) 07/30/17 17:06 99 07/30/17 15:32 99.1 82 18 179/109 (132) 98 Room Air Physical Exam GENERAL: This is a well-nourished, well-developed patient, in no apparent distress. SKIN: No rashes, ecchymoses or lesions. Cool and dry. HEAD: Atraumatic. Normocephalic. No temporal or scalp tenderness. EYES: No scleral icterus. No injection or drainage. ENT: Nose without bleeding, purulent drainage or septal hematoma. Airway patent. NECK: Trachea midline. No JVD Supple, nontender, no meningeal signs. CARDIOVASCULAR: Regular rate and rhythm without murmurs, gallops, or rubs. RESPIRATORY: Clear to auscultation. Breath sounds equal bilaterally. No wheezes , rales, or rhonchi. GASTROINTESTINAL: Abdomen soft, non-tender, nondistended. No guarding. MUSCULOSKELETAL: Extremities without clubbing, cyanosis, or edema. No calf tenderness. NEUROLOGICAL: Awake and alert. Cranial nerves II through XII intact. Motor and sensory grossly within normal limits.Normal speech. Laboratory Laboratory Tests Test 07/30/17 16:10 07/30/17 17:08 White Blood Count 6.5 Red Blood Count 4.73 Hemoglobin 15.3 Hematocrit 45.0 Mean Corpuscular Volume 95.1 Mean Corpuscular Hemoglobin 32.3 Mean Corpuscular Hemoglobin Concent 34.0 Red Cell Distribution Width 13.3 Platelet Count 216 Mean Platelet Volume 7.1 Neutrophils (%) (Auto) 63.0 Lymphocytes (%) (Auto) 23.8 Monocytes (%) (Auto) 9.6 Eosinophils (%) (Auto) 3.2 Basophils (%) (Auto) 0.4 Neutrophils # (Auto) 4.1 Lymphocytes # (Auto) 1.5 Monocytes # (Auto) 0.6 Eosinophils # (Auto) 0.2 Basophils # (Auto) 0.0 CBC Comment DIFF FINAL Differential Comment Prothrombin Time 11.7 Prothromb Time International Ratio 1.1 Activated Partial Thromboplast Time 29.2 Blood Urea Nitrogen 9 Creatinine 1.02 Random Glucose 89 Calcium Level 8.7 Magnesium Level 2.2 Sodium Level 131 Potassium Level 4.0 Chloride Level 97 Carbon Dioxide Level 28.2 Anion Gap 6 Estimat Glomerular Filtration Rate 78 Thyroid Stimulating Hormone 3rd Gen 1.510 Ethyl Alcohol Level LESS THAN 3 Urine Color LIGHT-YELLOW Urine Turbidity CLEAR Urine pH 5.5 Urine Specific [place] 1.011 Urine Protein NEG Urine Glucose (UA) NEG Urine Ketones NEG Urine Occult Blood NEG Urine Nitrite NEG Urine Bilirubin NEG Urine Urobilinogen LESS THAN 2.0 Urine Leukocyte Esterase NEG Urine RBC 1 Urine WBC 1 Urine Squamous Epithelial Cells <1 Microscopic Urinalysis Comment CATH-CULT NOT IND Urine Opiates Screen NEG Urine Barbiturates Screen NEG Urine Amphetamines Screen NEG Urine Benzodiazepines Screen NEG Urine Cocaine Screen NEG Urine Cannabinoids Screen NEG Result Diagram: 07/30/17 1610 07/30/17 1610 Caprini VTE Risk Assessment Caprini VTE Risk Assessment: Mod/High Risk (score >= 2) Caprini Risk Assessment Model Point Value = 1 Point Value = 2 Point Value = 3 Point Value = 5 Age 41-60 Minor surgery BMI > 25 kg/m2 Swollen legs Varicose veins or History of unexplained or recurrent spontaneous Oral contraceptives or hormone replacement Sepsis (< 1 month) Serious lung disease, including pneumonia (< 1 month) Abnormal pulmonary function Acute myocardial infarction Congestive heart failure (< 1 month) History of inflammatory bowel disease Medical patient at bed rest Age 61-74 Arthroscopic surgery Major open surgery (> 45 min) Laparoscopic surgery (> 45 min) Malignancy Confined to bed (> 72 hours) Immobilizing plaster cast Central venous access Age >= 75 History of VTE Family history of VTE Factor V Leiden Prothrombin [id number] Lupus anticoagulant Anticardiolipin antibodies Elevated serum homocysteine Heparin-induced thrombocytopenia Other congenital or acquired thrombophilia Stroke (< 1 month) Elective arthroplasty Hip, pelvis, or leg fracture Acute spinal cord injury (< 1 month) Prophylaxis Regimen Total Risk Factor Score Risk Level Prophylaxis Regimen 0-1 Low Early ambulation 2 Moderate Order ONE of the following: *Sequential Compression Device (SCD) *Heparin 5000 units SQ BID 3-4 Higher Order ONE of the following medications: *Heparin 5000 units SQ TID *Enoxaparin/Lovenox 40 mg SQ daily (WT < 150 kg, CrCl > 30 mL/min) *Enoxaparin/Lovenox 30 mg SQ daily (WT < 150 kg, CrCl > 10-29 mL/min) *Enoxaparin/Lovenox 30 mg SQ BID (WT < 150 kg, CrCl > 30 mL/min) AND/OR *Sequential Compression Device (SCD) 5 or more Highest Order ONE of the following medications: *Heparin 5000 units SQ TID (Preferred with Epidurals) *Enoxaparin/Lovenox 40 mg SQ daily (WT < 150 kg, CrCl > 30 mL/min) *Enoxaparin/Lovenox 30 mg SQ daily (WT < 150 kg, CrCl > 10-29 mL/min) *Enoxaparin/Lovenox 30 mg SQ BID (WT < 150 kg, CrCl > 30 mL/min) AND *Sequential Compression Device (SCD) Assessment and Plan Assessment and Plan Impression: dizziness on positional change abnormal CT findings- interval evolution of right frontal mid convexity infarct and adjacent subdural hematoma. hx of ic bleed in 05/2017 secondary to fall/trauma htn- was not prescribed meds at discharge in 05/2017 but was receiving prn IV antihypertensives while in hospital Plan: neurochecks control BP with target 140-160 systolic neuro consult check carotid sono last echo in may reviewed - no clots/ valvular pathology DVT prophylaxis with scd Discussed Condition With patient, ER PA, nursing staff Renetta Oliva MD Jul 31, 2017 02:58
[2017-07-31 08:17] LABS: BICARBONATE 25.4 MEQ/L (21.0-32.0); POTASSIUM 3.9 MEQ/L (3.5-5.1)
[2017-07-31 08:18] LABS: AUTOMATED NEUTROPHIL # 3.5 TH/MM3 (1.8-7.7); BASOPHIL % 0.5 % (0.0-2.0); EOSINOPHIL # 0.3 TH/MM3 (0-0.4); EOSINOPHIL % 4.6 % (0.0-4.0); HEMATOCRIT 41.8 % (39.0-51.0); HEMO FLAGS DIFF FINAL; LYMPH % 24.9 % (9.0-44.0); LYMPHOCYTE # 1.5 TH/MM3 (1.0-4.8); MEAN CELL VOLUME 94.7 FL (80.0-100.0); MEAN CORPUSCULAR HEMOGLOBIN 32.7 PG (27.0-34.0); MEAN CORPUSCULAR HGB CONC 34.6 % (32.0-36.0); MONO % 12.1 % (0.0-8.0); NEUT % 57.9 % (16.0-70.0); PLATELET COUNT 206 TH/MM3 (150-450); RED BLOOD COUNT 4.42 MIL/MM3 (4.50-5.90); RED CELL DISTRIBUTION WIDTH 13.2 % (11.6-17.2)
--- NOTE | 2017-07-31 09:02 | RADRPT ---
EXAM DATE/TIME: 07/31/2017 07:45 [facility] COMPARISON: No previous studies available for comparison. INDICATIONS : Syncope. Cerebrovascular accident. MEDICAL HISTORY : Hypertension. Stroke SURGICAL HISTORY : Left knee surgery. ENCOUNTER: Initial ACUITY: 1 day PAIN SCORE: 2/10 LOCATION: Bilateral neck PEAK SYSTOLIC VELOCITIES (cm/sec): ICA/CCA RATIO: Right: 0.8 Left: 0.9 ICA: Right: 81 Left: 81 CCA: Right: 95 Left: 91 ECA: Right: 99 Left: 102 VERTEBRAL: Right: 53 antegrade Left: 33 antegrade Elevated flow velocities and ICA/CCA ratios have been found to correlate with increased degrees of vessel stenosis, calculated as percentage of diameter relative to a normal segment of distal ICA/CCA FINDINGS: RIGHT CAROTID: There is moderate eccentric soft plaque present in the distal common carotid artery with what appears to be either prominent pedunculated soft plaque extending well into the lumen of the vessel or, pote ntially, free-floating thrombus. LEFT CAROTID: Moderate eccentric soft and calcific plaquing in the carotid bulb region. VERTEBRAL ARTERIES: Antegrade flow is seen in both vertebral arteries. MISCELLANEOUS: None. CONCLUSION: Abnormal study. Recommend CTA examination the arch and carotids for further evaluation. Freddy Almazan MD on July 31, 2017 at 8:53 Board Certified Radiologist. This report was verified electronically.
[2017-07-31] MEDS: SODIUM CHLORIDE 0.9% FLUSH 10 ML FLUSH IV FLUSH SCH ×2 (10:56→21:31)
[2017-07-31] MEDS ORDERED: MECLIZINE HCL 25 MG TAB PO PRN (11:15)
--- NOTE | 2017-07-31 11:48 | MB ---
cc: CAROL STERN M.D. DATE OF CONSULTATION 07/31/2017 REASON FOR CONSULTATION Dizziness HISTORY OF PRESENT ILLNESS Mr. Fontenot is a 47-year-old man who had a recent fall with head trauma on June 26. At that time, he had CT scan of the brain which showed contusion with intracranial hemorrhage of the right frontal lobe area, as well as subdural hematoma, subarachnoid hemorrhage. He was followed, improved and went home. Now he relates for the past week positional vertigo when he bends forward and gets up suddenly he feels a spinning sensation. He does not have this at any other time. He has no other neurological complaints. No loss of consciousness. No seizure-like activity. MEDICATIONS Current medications are Narcan p.r.n. NEUROLOGIC EXAMINATION Blood pressure is 142/75, pulse 56, respirations 20, temperature 98 degrees. Higher cortical functions normal. Cranial nerves intact. Extraocular movements are full with no nystagmus. Motor exam demonstrates 5/5 strength of all groups in the upper and lower extremities. There is no drift. Fine motor skills are within normal limits. Reflexes are symmetric. Cerebellar testing is normal. CT of the brain shows evolution of the right frontal mid convexity, encephalomalacia and subdural hematoma. There is a small amount of continued increased density in the subdural collection possibly intercurrent small hemorrhage. No other changes identified. LABORATORY DATA White count 6000, hemoglobin 14.5, hematocrit 41.8%, platelet count 206,000, PT 11.7, INR 1.1, APTT 29.2. Sodium is 133, potassium 3.9, chloride 99, CO2 25, BUN is 8, creatinine 0.87, GFR 93, glucose 99, TSH 1.51. Tox screen negative. IMPRESSION 1. Probable positional vertigo, probably related to the post concussive syndrome from his recent fall. 2. Chronic changes in the right frontal lobe consistent with his previous head trauma appears to be evolving. 3. Carotid ultrasound indicates abnormalities in the carotid arteries, possible soft plaque present. RECOMMENDATIONS Recommend MRI of the brain to further evaluate the subdural and rule out any recent bleed, rule out any brain stem contusion effecting the vertigo. Would also had a CT angiogram of the carotids to further evaluate the carotid artery plaquing identified on the carotid ultrasound. MD MADISON Harrison /11:07 AM /11:37 AM
--- NOTE | 2017-07-31 13:30 | HHI.PR ---
Subjective Remarks Follow up for dizziness. The patient reports continued dizziness only when he bends forward, although he describes it more as his head spinning, not the room spinning. Denies any significant headache, only minimal pain worse with leaning forward. Denies any blurred vision. Denies any nausea or vomiting. Denies any fevers/chills, chest pain, palpitations, shortness of breath, or abdominal pain. Denies any recurrent head injury since prior hospitalization. Objective Vitals Vital Signs Date Time Temp Pulse Resp B/P (MAP) Pulse Ox O2 Delivery O2 Flow Rate FiO2 07/31/17 13:12 97.9 58 18 143/82 (102) 96 07/31/17 08:31 98.0 56 20 142/75 (97) 96 07/31/17 05:23 97.9 62 18 142/66 (91) 98 07/31/17 03:58 51 07/31/17 02:31 98.1 53 16 132/68 (89) 97 07/31/17 00:03 53 07/30/17 21:22 98.1 60 16 151/83 (105) 98 07/30/17 20:54 07/30/17 19:32 70 18 156/87 (110) 98 Room Air 07/30/17 17:16 75 18 163/89 (113) 07/30/17 17:15 60 18 137/70 (92) 07/30/17 17:06 99 07/30/17 15:32 99.1 82 18 179/109 (132) 98 Room Air I/O 07/30/17 07/30/17 07/30/17 07/31/17 07/31/17 07/31/17 07:00 15:00 23:00 07:00 15:00 23:00 Intake Total 1000 ml Balance 1000 ml Intake IV Total 1000 ml Result Diagram: 07/31/17 0642 07/31/17 0642 Imaging Last Impressions Carotid Artery Ultrasound 07/31/17 0000 Signed Impressions: Service Date/Time: July 07:45 - CONCLUSION: Abnormal study. Recommend CTA examination the arch and carotids for further evaluation. Freddy Almazan MD Head CT 07/30/17 1546 Signed Impressions: Service Date/Time: Sunday, July 30, 2017 17:21 - CONCLUSION: 1. Findings most consistent with interval evolution of right frontal mid convexity infarct and adjacent subdural hematoma. Small amount of continued increased density in the subdural collection may reflect calcification although intercurrent small hemorrhage cannot be excluded. Clinical correlation is recommended. Lexx Benz MD Objective Remarks GENERAL: Well-nourished, well-developed pleasant middle aged male patient in [facility]. SKIN: Warm and dry. No rash. HEAD: Normocephalic. Atraumatic. EYES: Pupils equal and round. No scleral icterus. No injection or drainage. No nystagmus noted. ENT: No nasal bleeding or discharge. Mucous membranes pink and moist. NECK: Supple. Trachea midline. CARDIOVASCULAR: Regular rate and rhythm. S1, S2 noted. No murmur appreciated. RESPIRATORY: No accessory muscle use. Clear to auscultation. Breath sounds equal bilaterally. GASTROINTESTINAL: Abdomen soft, non-tender, nondistended. Normoactive bowel sounds x4. MUSCULOSKELETAL: No obvious deformities. Extremities without clubbing, cyanosis , or edema. NEUROLOGICAL: Awake and alert. No obvious cranial nerve deficits. Motor grossly within normal limits. 5/5 muscle strength in bilateral upper and lower extremities. Normal speech. PSYCHIATRIC: Appropriate mood and affect; insight and judgment normal. Medications and IVs Current Medications Medications (Trade) Dose Ordered Sig/Carlene Route Start Time Stop Time Status Last Admin (NS Flush) 2 ml UNSCH PRN IV FLUSH 07/30/17 20:15 (NS Flush) 2 ml BID IV FLUSH 07/30/17 21:00 07/31/17 10:56 (Narcan Inj) 0.4 mg UNSCH PRN IV PUSH 07/30/17 20:15 (Antivert) 25 mg Q8H PRN PO 07/31/17 11:15 A/P Assessment and Plan 47-year-old male with history of recent head injury, intracranial bleed s/p fall 06/20/17, hypertension, presents with acute dizziness Dizziness: positional, only when leaning forward. Possible vertigo vs related to prior head injury. -CT brain images reviewed, shows interval evolution of the right frontal infarct and adjacent subdural hematoma; small amount of continued increased density in subdural collection may reflect calcification although intercurrent small hemorrhage cannot be excluded. -Continue patient's Keppra for seizure prevention -Consult neurology, seen by Dr. Delatorre -Brain MRI and CTA brain/neck ordered and pending -Consult patient's neurosurgeon Dr. Hair -Trial of meclizine ordered as needed Abnormal Carotid: carotid U/S reviewed, shows moderate plaque at distal right common carotid artery with what appears to be either prominent pedunculated soft plaque extending well into the lumen or potentially a free-floating thrombus; left carotid with moderate plaque. Recommends CTA carotids -CTA carotids ordered -check lipid panel, start statin if indicated DVT Prophylaxis: teds/SCDs Discharge Planning Discharge pending work up and further clinical improvement. Hopefully discharge tomorrow. Ellie Catherine PA-C Jul 31, 2017 1:30 pm
--- NOTE | 2017-07-31 13:39 | PD.CONS ---
[facility] Service neurosurg Consult Requested By [facility] Reason for Consult Subdural hematoma Primary Care Physician No Primary Care Physician History of Present Illness This is a 47-year-old man who had a recent fall with head trauma on June 26. At that time, he had CT scan of the brain which showed contusion with intracranial hemorrhage of the right frontal lobe area, as well as subdural hematoma, subarachnoid hemorrhage. He was followed as an inpatient at [facility], improved and went home. Now he relates for the past week positional vertigo when he bends forward and gets up suddenly he feels a spinning sensation. He does not have this at rest. Denies headaches. No now shows no vomiting. He denies any focal motor weakness. He denies any vision loss. He denies any visual changes no other neurological complaints. No loss of consciousness. No seizure-like activity. HISTORY OF PRESENT ILLNESS Mr. Zhang is a 47-year-old man who had a recent fall with head trauma on June 26. At that time, he had CT scan of the brain which showed contusion with intracranial hemorrhage of the right frontal lobe area, as well as subdural hematoma, subarachnoid hemorrhage. He was followed, improved and went home. Now he relates for the past week positional vertigo when he bends forward and gets up suddenly he feels a spinning sensation. He does not have this at any other time. He has no other neurological complaints. No loss of consciousness. No seizure-like activity. CT of the brain was obtained. Neurosurgical consultation was requested Review of Systems Constitutional: DENIES: Diaphoretic episodes, Fatigue, Fever, Weight gain, Weight loss, Chills, Dizziness, Change in appetite, Night Sweats Endocrine: DENIES: Heat/cold intolerance, Polydipsia, Polyuria, Polyphagia Ears, nose, mouth, throat: COMPLAINS OF: Vertigo, DENIES: Tinnitus, Hearing loss, Nasal discharge, Oral lesions, Throat pain, Hoarseness, Ear Pain, Running Nose, Epistaxis, Sinus Pain, Toothache, Odynophagia Respiratory: DENIES: Apneas, Cough, Snoring, Wheezing, Hemoptysis, Sputum production, Shortness of breath Cardiovascular: DENIES: Chest pain, Palpitations, Syncope, Dyspnea on Exertion , PND, Lower Extremity Edema, Orthopnea, Claudication Gastrointestinal: DENIES: Abdominal pain, Black stools, Bloody stools, Constipation, Diarrhea, Nausea, Vomiting, Difficulty Swallowing, Anorexia Genitourinary: DENIES: Sexual dysfunction, Urinary frequency, Urinary incontinence, Urgency, Hematuria, Dysuria, Nocturia, Penile Discharge, Testicular Pain, Testicular Swelling Hematologic/lymphatic: DENIES: Bruising, Lymphadenopathy Immunologic/allergic: DENIES: Eczema, Urticaria Neurologic: DENIES: Abnormal gait, Headache, Localized weakness, Paresthesias, Seizures, Speech Problems, Tremor, Poor Balance Psychiatric: DENIES: Anxiety, Confusion, Mood changes, Depression, Hallucinations, Agitation, Suicidal Ideation, Homicidal Ideation, Delusions Past Family Social History Allergies: Coded Allergies: No Known Allergies (Verified , 07/30/17) Past Medical History Hypertenmsion Recent head trauma Past Surgical History left LE ORIF Active Ordered Medications Current Medications IV Flush (NS Flush) 2 ml UNSCH PRN IV FLUSH FLUSH AFTER USING IV ACCESS Last administered on 07/30/17 18:26; Start 07/30/17 at 17:00; Stop 07/30/17 at 20:15 ; Status DC Sodium Chloride 1,000 ml @ 999 mls/hr BOLUS ONCE IV Last administered on 07/30 18:26; Start 07/30/17 at 17:45; Stop 07/30/17 at 18:45; Status DC Sodium Chloride (NS Flush) 2 ml UNSCH PRN IV FLUSH FLUSH AFTER USING IV ACCESS ; Start 07/30/17 at 20:15 Sodium Chloride (NS Flush) 2 ml BID IV FLUSH Last administered on 07/31/17 10: 56; Start 07/30/17 at 21:00 Naloxone HCl (Narcan Inj) 0.4 mg UNSCH PRN IV PUSH SEE LABEL COMMENTS; Start 07/30/17 at 20:15 Meclizine HCl (Antivert) 25 mg Q8H PRN PO VERTIGO; Start 07/31/17 at 11:15 Levetriacetam (Keppra) 500 mg BID PO ; Start 07/31/17 at 21:00; Status UNV Family History dad and his brothers- kidney problem- one is on dialysis Social History quit smoking 10 years ago drink mostly on weekends, drinks heavily when he drinks Physical Exam Vital Signs Vital Signs Date Time Temp Pulse Resp B/P (MAP) Pulse Ox O2 Delivery O2 Flow Rate FiO2 07/31/17 13:12 97.9 58 18 143/82 (102) 96 07/31/17 08:31 98.0 56 20 142/75 (97) 96 07/31/17 05:23 97.9 62 18 142/66 (91) 98 07/31/17 03:58 51 07/31/17 02:31 98.1 53 16 132/68 (89) 97 07/31/17 00:03 53 07/30/17 21:22 98.1 60 16 151/83 (105) 98 07/30/17 20:54 07/30/17 19:32 70 18 156/87 (110) 98 Room Air 07/30/17 17:16 75 18 163/89 (113) 07/30/17 17:15 60 18 137/70 (92) 07/30/17 17:06 99 07/30/17 15:32 99.1 82 18 179/109 (132) 98 Room Air Physical Exam Mr zhang is alert, awake and oriented to time, place and person. Speech is fluent. Higher cognitive functions are normal. Cranial nerve examination demonstrates the pupils to be equal, round, and reactive to light. Extra-ocular movements are intact. Facial motor and sensory function are normal and symmetrical. Gross hearing is intact, bilaterally. The uvula is midline and elevates symmetrically with the soft palate. Sternocleidomastoid and trapezius muscles have normal and symmetrical strength. Other cranial nerves are intact. Neck is soft and supple. Cervical spine has a full range of motion in anterior flexion, extension, lateral bending, and rotation without pain. There is no tenderness to palpation to the spinous processes or paraspinal muscles. Muscle testing reveals normal bulk and tone overall without rigidity, spasticity , fasciculations, or atrophy. Muscle strength is 5/5 in all muscle groups of both upper extremities including deltoid, biceps, triceps, brachioradialis, wrist extension and residential solar consultant. In the lower extremities, strength is 5/5 in both iliopsoas, quadriceps, hamstrings, plantar flexion, dorsiflexion, and extensor hallicus longus. Sensory examination is intact to light touch and sharp/dull discrimination in both the upper and lower extremities, symmetrically. Deep tendon reflexes are 2+ and symmetrical in the biceps, triceps, and brachioradialis, bilaterally, in the upper extremities. In the lower extremities , the patellar and Achilles are 2+, bilaterally. There is a bilateral plantar flexion response. Hoffmanns sign is negative. There is no clonus or other abnormal reflexes noted. Cerebellar examination is intact to [id number] test, rapid rhythmic alternating motion. There is no dysmetria, dysdiadochokinesia, truncal ataxia, or tremor. Laboratory Laboratory Tests Test 07/30/17 16:10 07/30/17 17:08 07/31/17 06:42 White Blood Count 6.5 6.0 Red Blood Count 4.73 4.42 Hemoglobin 15.3 14.5 Hematocrit 45.0 41.8 Mean Corpuscular Volume 95.1 94.7 Mean Corpuscular Hemoglobin 32.3 32.7 Mean Corpuscular Hemoglobin Concent 34.0 34.6 Red Cell Distribution Width 13.3 13.2 Platelet Count 216 206 Mean Platelet Volume 7.1 7.4 Neutrophils (%) (Auto) 63.0 57.9 Lymphocytes (%) (Auto) 23.8 24.9 Monocytes (%) (Auto) 9.6 12.1 Eosinophils (%) (Auto) 3.2 4.6 Basophils (%) (Auto) 0.4 0.5 Neutrophils # (Auto) 4.1 3.5 Lymphocytes # (Auto) 1.5 1.5 Monocytes # (Auto) 0.6 0.7 Eosinophils # (Auto) 0.2 0.3 Basophils # (Auto) 0.0 0.0 CBC Comment DIFF FINAL DIFF FINAL Differential Comment Prothrombin Time 11.7 Prothromb Time International Ratio 1.1 Activated Partial Thromboplast Time 29.2 Blood Urea Nitrogen 9 8 Creatinine 1.02 0.87 Random Glucose 89 99 Calcium Level 8.7 8.2 Magnesium Level 2.2 Sodium Level 131 133 Potassium Level 4.0 3.9 Chloride Level 97 99 Carbon Dioxide Level 28.2 25.4 Anion Gap 6 9 Estimat Glomerular Filtration Rate 78 93 Thyroid Stimulating Hormone 3rd Gen 1.510 Ethyl Alcohol Level LESS THAN 3 Urine Color LIGHT-YELLOW Urine Turbidity CLEAR Urine pH 5.5 Urine Specific [place] 1.011 Urine Protein NEG Urine Glucose (UA) NEG Urine Ketones NEG Urine Occult Blood NEG Urine Nitrite NEG Urine Bilirubin NEG Urine Urobilinogen LESS THAN 2.0 Urine Leukocyte Esterase NEG Urine RBC 1 Urine WBC 1 Urine Squamous Epithelial Cells <1 Microscopic Urinalysis Comment CATH-CULT NOT IND Urine Opiates Screen NEG Urine Barbiturates Screen NEG Urine Amphetamines Screen NEG Urine Benzodiazepines Screen NEG Urine Cocaine Screen NEG Urine Cannabinoids Screen NEG Result Diagram: 07/31/17 0642 07/31/17 0642 Imaging Last 48 hours Impressions Carotid Artery Ultrasound 07/31/17 0000 Signed Impressions: Service Date/Time: July 07:45 - CONCLUSION: Abnormal study. Recommend CTA examination the arch and carotids for further evaluation. Freddy Almazan MD Head CT 07/30/17 1546 Signed Impressions: Service Date/Time: Sunday, July 30, 2017 17:21 - CONCLUSION: 1. Findings most consistent with interval evolution of right frontal mid convexity infarct and adjacent subdural hematoma. Small amount of continued increased density in the subdural collection may reflect calcification although intercurrent small hemorrhage cannot be excluded. Clinical correlation is recommended. Lexx Benz MD Attending Statement Neuro. neuro checks in a serial fashion. CT shows evolution of a known lesions , without worsening mass effect or midline shift. Recommend to continue conservative follow-up Possible benign positional post traumatic vertigo. Neurology consultation has been placed Pulmonary. aggressive pulmonary toilette, nasotracheal suction, and breathing treatments with nebulizers. Daily PT and OT Nutrition. Tolerating Oral diet Renal. monitor closely urine output, BUN and creatinine Endocrine. Monitor serial Acu checks and SSI as needed in detail ID continue to monitor for signs of infection Protonix for stress ulcer prophylaxis Arsalan hose and SCD's for DVT prophylaxis Further recommendations will be provided depending on the patient's clinical evaluation and follow up studies. Alex Hair MD Jul 31, 2017 13:39
[2017-07-31] MEDS ORDERED: GADODIAMIDE PF 287 MG/ML 20 ML VIAL (for RAD MRI) IVCONTRAST ONE (13:51)
[2017-07-31 14:06] LABS: HDL CHOLESTEROL 38.7 MG/DL (40.0-60.0)
--- NOTE | 2017-07-31 14:17 | RADRPT ---
EXAM DATE/TIME: 07/31/2017 13:31 [facility] COMPARISON: CT BRAIN W/O CONTRAST, June 20, 2017, 18:00. CT BRAIN W/O CONTRAST, June 21, 2017, 12:36. CT BR AIN W/O CONTRAST, October 07, 2015, 0:23. CT BRAIN W/O CONTRAST, July 30, 2017, 17:21. INDICATIONS : . Right frontal traumatic contusion with subdural and intraparenchymal hemorrhage as well as edema. CONTRAST: 17 cc Omniscan (gadodiamide) IV MEDICAL HISTORY : Hypertension. SURGICAL HISTORY : Left knee and left leg. ENCOUNTER: Initial ACUITY: 1 day PAIN SCORE: 0/10 LOCATION: Head. TECHNIQUE: Multiplanar, multisequence MRI of the brain was performed both prior to and following the administrat ion of paramagnetic contrast. FINDINGS: There is a small amount of residual subdural hemorrhage again noted along the right frontal conv exities. There is residual edema within the right frontal lobe as well. This is best seen on the T2 a nd flair weighted images. There is no significant mass effect, midline shift or mass effect on the ve ntricular system. There is no hydrocephalus. The posterior fossa and brainstem remain unremarkable. A fter gadolinium administration there is enhancement of the meninges greatest along the right frontal lobe. Mild atrophic changes are noted. CONCLUSION: 1. Small amount of residual subdural emergent edema in the right frontal region. 2. No new hemorrhage or mass effect. Ajith Caballero MD on July 31, 2017 at 14:04 Board Certified Radiologist. This report was verified electronically.
--- NOTE | 2017-07-31 14:38 | EKG ---
Date Performed: 07/30/2017 Time Performed: 15:54:38 PTAGE: 47 years EKG: Sinus rhythm MINIMAL VOLTAGE CRITERIA FOR LVH, CONSIDER NORMAL VARIANT BORDERLINE ECG PREVIOUS TRACING 10/10/15 Since prior tracing, sinus rate has increaed. DOCTOR: Cheo Escalante Interpretating Date/Time 07/31/2017 14:35:43
--- NOTE | 2017-07-31 18:37 | RADRPT ---
EXAM DATE/TIME: 07/31/2017 17:27 [facility] COMPARISON: MRI BRAIN W & W/O CONTRAST, July 31, 2017, 13:31. CT BRAIN W/O CONTRAST, July 30, 2017, 17:21 . INDICATIONS : Subdural hematoma. IV CONTRAST: 75 cc Omnipaque 350 (iohexol) IV ; Cumulative dose for multiple exams. RADIATION DOSE: 25.87 CTDIvol (mGy) ; Combined studies MEDICAL HISTORY : Hypertension. SURGICAL HISTORY : None. ENCOUNTER: Initial ACUITY: 1 day PAIN SCALE: 0/10 LOCATION: cranial TECHNIQUE: Volumetric scanning was performed using a multi-row detector CT scanner. The data was post processed with a variety of visualization algorithms including full volume maximum intensity projection, multi -planar sliding thin slab reformation, curved planar reformation, and surface rendering techniques. Using automated exposure control and adjustment of the mA and/or kV according to patient size, radiat ion dose was kept as low as reasonably achievable to obtain optimal diagnostic quality images. DICO M format image data is available electronically for review and comparison. FINDINGS: There is excellent visualization of the major intracranial arteries out to the second-order branch ve ssels. There is no evidence for aneurysm, vessel truncation or stenosis, and no evidence for vascula r malformation. CONCLUSION: Normal examination. Freddy Almazan MD on July 31, 2017 at 18:30 Board Certified Radiologist. This report was verified electronically.
--- NOTE | 2017-07-31 19:31 | RADRPT ---
EXAM DATE/TIME: 07/31/2017 17:27 [facility] COMPARISON: No previous studies available for comparison. INDICATIONS : Carotid stenosis. IV CONTRAST: 75 cc Omnipaque 350 (iohexol) IV ; Cumulative dose for multiple exams. RADIATION DOSE: 25.87 CTDIvol (mGy) ; Combined studies MEDICAL HISTORY : Hypertension. SURGICAL HISTORY : None. ENCOUNTER: Initial ACUITY: 1 day PAIN SCALE: 0/10 LOCATION: neck Elevated flow velocities and ICA/CCA ratios have been found to correlate with increased degrees of vessel stenosis, calculated as percentage of diameter relative to a normal segment of distal ICA/CCA. TECHNIQUE: Volumetric scanning was performed using a multirow detector CT scanner. The data was post processed with a variety of visualization algorithms including full-volume maximum intensity projection, multip lanar sliding thin-slab reformation, curved-planar reformation, and surface-rendering techniques. Us ing automated exposure control and adjustment of the mA and/or kV according to patient size, radiatio n dose was kept as low as reasonably achievable to obtain optimal diagnostic quality images. DICOM f ormat image data is available electronically for review and comparison. FINDINGS: AORTIC ARCH: There is a three-vessel origin of the great vessels from the aorta. No evidence of ostial narrowing. RIGHT CAROTID: The common carotid artery is intact. The carotid bulb has a normal configuration without ulceration o r narrowing. The internal carotid artery lumen is smooth without stenosis. The external carotid wen ry is intact. LEFT CAROTID: There is minimal calcified plaque at the left carotid bulb region without significant stenosis. The c ommon carotid artery is intact. The carotid bulb has a normal configuration without ulceration or na rrowing. The internal carotid artery lumen is smooth without stenosis. The external carotid artery is intact. VERTEBRALS: The vertebral arteries have a symmetric diameter. No stenotic lesions are seen. CONCLUSION: No significant stenosis is seen. Freddy Gilbert MD on July 31, 2017 at 19:28 Board Certified Radiologist. This report was verified electronically.
[2017-07-31] MEDS: levETIRAcetam 500 MG TAB PO SCH (21:31)
[2017-08-01] VITALS (7 sets, daily range): BP systolic 108–134; BP diastolic 65–74; PULSE 48–66; RESP 18–20; TEMP 97.8–98.2; O2SAT 95–98
[2017-08-01] MEDS: levETIRAcetam 500 MG TAB PO SCH (10:36)
[2017-08-01] MEDS: SODIUM CHLORIDE 0.9% FLUSH 10 ML FLUSH IV FLUSH SCH (10:37)
--- NOTE | 2017-08-01 11:29 | HHI.PR ---
Subjective Remarks Follow up for dizziness. The patient reports feeling much better today. He denies any dizziness, even with position changes. He is ambulating without difficulty. Denies any headache, lightheadedness, dizziness, visual changes, chest pain, or shortness of breath. He wants to go home. Objective Vitals Vital Signs Date Time Temp Pulse Resp B/P (MAP) Pulse Ox O2 Delivery O2 Flow Rate FiO2 08/01/17 07:37 98.0 52 18 126/71 (89) 96 08/01/17 04:20 97.8 64 18 117/74 (88) 96 08/01/17 04:00 54 08/01/17 00:11 97.8 53 18 108/68 (81) 95 08/01/17 00:05 48 07/31/17 21:11 97.9 55 18 129/77 (94) 97 07/31/17 20:01 60 07/31/17 15:20 98.3 59 18 131/80 (97) 98 07/31/17 13:12 97.9 58 18 143/82 (102) 96 Result Diagram: 07/31/17 0642 07/31/17 0642 Imaging Last Impressions Neck CTA 07/31/17 0000 Signed Impressions: Service Date/Time: July 17:27 - CONCLUSION: No significant stenosis is seen. Freddy Gilbert MD Head CTA 07/31/17 0000 Signed Impressions: Service Date/Time: July 17:27 - CONCLUSION: Normal examination. Freddy Almazan MD Carotid Artery Ultrasound 07/31/17 0000 Signed Impressions: Service Date/Time: July 07:45 - CONCLUSION: Abnormal study. Recommend CTA examination the arch and carotids for further evaluation. Freddy Almazan MD Brain MRI 07/31/17 0000 Signed Impressions: Service Date/Time: July 13:31 - CONCLUSION: 1. Small amount of residual subdural emergent edema in the right frontal region. 2. No new hemorrhage or mass effect. Ajith Caballero MD Head CT 07/30/17 1546 Signed Impressions: Service Date/Time: Sunday, July 30, 2017 17:21 - CONCLUSION: 1. Findings most consistent with interval evolution of right frontal mid convexity infarct and adjacent subdural hematoma. Small amount of continued increased density in the subdural collection may reflect calcification although intercurrent small hemorrhage cannot be excluded. Clinical correlation is recommended. Lexx Benz MD Objective Remarks GENERAL: Well-nourished, well-developed pleasant middle aged male patient in [facility]. SKIN: Warm and dry. No rash. HEENT: Normocephalic. Atraumatic. Pupils equal and round. No nystagmus noted. Mucous membranes pink and moist. CARDIOVASCULAR: Regular rate and rhythm. S1, S2 noted. No murmur appreciated. RESPIRATORY: No accessory muscle use. Clear to auscultation. Breath sounds equal bilaterally. GASTROINTESTINAL: Abdomen soft, non-tender, nondistended. Normoactive bowel sounds x4. MUSCULOSKELETAL: No obvious deformities. Extremities without clubbing, cyanosis , or edema. NEUROLOGICAL: Awake and alert. No obvious cranial nerve deficits. Motor grossly within normal limits. Normal speech. PSYCHIATRIC: Appropriate mood and affect; insight and judgment normal. Medications and IVs Current Medications Medications (Trade) Dose Ordered Sig/Carlene Route Start Time Stop Time Status Last Admin (NS Flush) 2 ml UNSCH PRN IV FLUSH 07/30/17 20:15 (NS Flush) 2 ml BID IV FLUSH 07/30/17 21:00 08/01/17 10:37 (Narcan Inj) 0.4 mg UNSCH PRN IV PUSH 07/30/17 20:15 (Antivert) 25 mg Q8H PRN PO 07/31/17 11:15 (Keppra) 500 mg BID PO 07/31/17 21:00 08/01/17 10:36 A/P Assessment and Plan 47-year-old male with history of recent head injury, intracranial bleed s/p fall 06/20/17, hypertension, presents with acute dizziness Dizziness: positional, only when leaning forward. Possible vertigo vs related to prior head injury. -CT brain images reviewed, shows interval evolution of the right frontal infarct and adjacent subdural hematoma; small amount of continued increased density in subdural collection may reflect calcification although intercurrent small hemorrhage cannot be excluded. -Continue patient's Keppra for seizure prevention -Consult neurology, seen by Dr. Delatorre -Brain MRI images reviewed, showed small amount of residual subdural edema in right frontal region; no new hemorrhage or mass effect -CTA brain/neck normal, some left carotid plaque, no significant stenosis -Consult patient's neurosurgeon Dr. Hair -Trial of meclizine ordered as needed -symptoms completely resolved spontaneously Abnormal Carotid: carotid U/S reviewed, shows moderate plaque at distal right common carotid artery with what appears to be either prominent pedunculated soft plaque extending well into the lumen or potentially a free-floating thrombus; left carotid with moderate plaque. Recommends CTA carotids -CTA carotids with some left carotid plaque but no stenosis -Lipid panel wnl DVT Prophylaxis: teds/SCDs Discharge Planning Likely discharge today if cleared by neurology Dr. Delatorre. Discharge patient to home Condition on discharge: Improved Regular Diet as tolerated Ad Daniella activity Rx written: no new meds Follow-up with primary care physician and neurology Ellie Catherine PA-C Aug 01, 2017 11:29 am
--- NOTE | 2017-08-01 14:59 | HHI.DCPOC ---
Discharge Care Plan Diagnosis: (1) Dizziness Goals to Promote Your Health * To prevent worsening of your condition and complications * To maintain your health at the optimal level Directions to Meet Your Goals Take your medications as prescribed Follow your dietary instruction Follow activity as directed Keep your appointments as scheduled Take your immunizations and boosters as scheduled If your symptoms worsen call your PCP, if no PCP go to Urgent Care Center or Emergency Room Smoking is Dangerous to Your Health. Avoid second hand smoke Call the 24-hour hour crisis hotline for domestic abuse at Ellie Catherine PA-C Aug 01, 2017 2:59 pm
--- NOTE | 2017-08-01 15:59 | HHI.PR ---
Review/Management Diagnosis cerebral contusion--improving on mri positional vertigo--resolved. Plan ok to discharge home from neuro standpoint Diagnosis/Plan: Subjective Subjective Comments No acute events reported No headache vertigo resolved Active Medications Current Medications Medications (Trade) Dose Ordered Sig/Carlene Route Start Time Stop Time Status Last Admin (NS Flush) 2 ml UNSCH PRN IV FLUSH 07/30/17 20:15 (NS Flush) 2 ml BID IV FLUSH 07/30/17 21:00 08/01/17 10:37 (Narcan Inj) 0.4 mg UNSCH PRN IV PUSH 07/30/17 20:15 (Antivert) 25 mg Q8H PRN PO 07/31/17 11:15 (Keppra) 500 mg BID PO 07/31/17 21:00 08/01/17 10:36 Allergies Allergies Coded Allergies No Known Allergies (Plyxpbfw09/4/17) Exam I&O / VS Vital Signs Date Time Temp Pulse Resp B/P (MAP) Pulse Ox O2 Delivery O2 Flow Rate FiO2 08/01/17 15:39 98.1 66 20 110/65 (80) 97 08/01/17 12:20 98.2 54 20 134/69 (90) 98 08/01/17 07:37 98.0 52 18 126/71 (89) 96 08/01/17 04:20 97.8 64 18 117/74 (88) 96 08/01/17 04:00 54 08/01/17 00:11 97.8 53 18 108/68 (81) 95 08/01/17 00:05 48 07/31/17 21:11 97.9 55 18 129/77 (94) 97 07/31/17 20:01 60 Exam Comments alert, speech normal Cn intact MOTOR--no focal deficits Objective Radiology Results MRI---improving small right sdh. no new findings Robert Delatorre PhD Aug 01, 2017 15:59
== END 2017-08-01 18:29 | disposition home or self-care (01) ==
LOC: NEPC 15:31 → NEDA 19:35 → NEPHCDU 21:15 → NEDH 08-01 10:02 → NEPHCDU 08-01 10:03
PROVIDERS: ADMIT Hospitalist; ATTEND Hospitalist
DX: R42 Dizziness and giddiness (principal); I60.9 Nontraumatic subarachnoid hemorrhage, unspecified; F07.81 Postconcussional syndrome; E87.1 Hypo-osmolality and hyponatremia; I10 Essential (primary) hypertension; Z87.891 Personal history of nicotine dependence; R94.31 Abnormal electrocardiogram [ECG] [EKG]
CPT/HCPCS: 70450; 70496; 70498; 70553; 80048; 80061; 80307; 81001; 83735; 84443; 85025; 85610; 85730; 93005; 93880; 96360; 99285; A9579; G0378; J7030; Q9967

== ENCOUNTER 2017-08-15 11:42 | Emergency (ER) | payer SELFPAY ==
[~2017-08-15] VITALS: Ht 180.3 cm; Wt 90.0 kg
[2017-08-15 11:44] VITALS: BP 138/82; PULSE 69; RESP 14; TEMP 98; O2SAT 99
--- NOTE | 2017-08-15 12:22 | PD ---
HPI Chief Complaint: Medical Clearance Time Seen by Provider: 12:18 Travel History International Travel<30 days: No Contact w/Intl Traveler<30days: No Traveled to known affect area: No History of Present Illness HPI 47-year-old male with history of subdural hematoma discharged from here on June 02 here for follow-up which he was instructed to do with neurosurgery. Patient was seen in house by Dr. Hair. Patient states his symptoms are essentially gone. Patient still has mild headache but no dizziness or worsening symptoms. Patient states he was unable to establish with a primary care physician and get a scheduled follow-up with neurosurgery as per his discharge instructions. He came in today for evaluation. His pain is at max 10. He has no known drug allergies. PFSH Past Medical History Arthritis: No Blood Disorders: No Cancer: No Cardiovascular Problems: No Diminished Hearing: No Endocrine: No Genitourinary: No Hypertension: Yes Immune Disorder: No Implanted Vascular Access Dvce: Yes Musculoskeletal: Yes Neurologic: No Psychiatric: No Reproductive: No Respiratory: No Immunizations Current: No Seizures: Yes (hx bleed, takes precaution meds-never had one) Past Surgical History Abdominal Surgery: No Arteriovenous Shunt: No Body Medical Devices: [email or web address] in left leg Cardiac Surgery: No Ear Surgery: No Endocrine Surgery: No Eye Surgery: No Genitourinary Surgery: No Gynecologic Surgery: No Insulin Pump: No Oral Surgery: No Pacemaker: No Thoracic Surgery: No Other Surgery: Yes Social History Alcohol Use: Yes ("a couple beers a day") Tobacco Use: No (quit 10 yrs ago) Substance Use: No Allergies-Medications (Allergen,Severity, Reaction): Coded Allergies: No Known Allergies (Verified , 07/30/17) Reported Meds & Prescriptions Reported Meds & Active Scripts Active Keppra (Levetiracetam) 500 Mg Tab 500 Mg PO BID Review of Systems Except as stated in HPI: all other systems reviewed are Neg General / Constitutional: No: Fever Eyes: No: Diploplia, Blurred Vision, Photophobia, Drainage, Redness, Foreign Body Sensation, Pain, Tearing, Blind Spots, Visual changes, Blindness HENT: Positive: Headaches (mild), No: Vertigo, Lightheadedness, Neck Stiffness , Neck Pain Cardiovascular: No: Chest Pain or Discomfort Respiratory: No: Shortness of Breath Gastrointestinal: No: Abdominal Pain Genitourinary: No: Dysuria Musculoskeletal: No: Pain Skin: No Rash Neurologic: No: Weakness Psychiatric: No: Depression Endocrine: No: Polydipsia Hematologic/Lymphatic: No: Easy Bruising Physical Exam Narrative GENERAL: Patient appears distress. SKIN: Warm and dry. Color. Normal turgor. No rash. HEAD: Atraumatic. Normocephalic. Tender with palpation EYES: Pupils equal and round. No scleral icterus. No injection or drainage. Ocular motions are full and equal bilaterally. No nystagmus ENT: No nasal bleeding or discharge. Mucous membranes pink and moist. Anxious clear. Airway is patent. NECK: Trachea midline. Supple and nontender. CARDIOVASCULAR: Regular rate and rhythm. RESPIRATORY: No accessory muscle use. Clear to auscultation. Breath sounds equal bilaterally. GASTROINTESTINAL: Abdomen soft, non-tender, nondistended. Hepatic and splenic margins not palpable. MUSCULOSKELETAL: Extremities without clubbing, cyanosis, or edema. No obvious deformities. NEUROLOGICAL: Awake and alert. No obvious cranial nerve deficits. Motor grossly within normal limits. Five out of 5 muscle strength in the arms and legs. Normal speech. PSYCHIATRIC: Appropriate mood and affect; insight and judgment normal. Data Data Last Documented VS Vital Signs Date Time Temp Pulse Resp B/P (MAP) Pulse Ox O2 Delivery O2 Flow Rate FiO2 08/15/17 11:44 98.0 69 14 138/82 (100) 99 MDM Medical Decision Making Medical Screen Exam Complete: Yes Emergency Medical Condition: No Medical Record Reviewed: Yes Differential Diagnosis History subdural hematoma. Headache. Resolving symptoms. Narrative Course Call was placed to Dr. Hair who agrees the patient is not acute or emergent. Patient will follow-up with Dr. Hair's office an outpatient basis. A medical screening exam was performed: At the time of evaluation the presenting medical condition was determined not to be of an emergent nature. The patient was given the option of receiving additional care, but declined. Patient was given options for additional community resources from which to obtain care. The Patient Has Been advised to seek medical attention for their presenting complaint. The patient has been advised to return to the ER at any time if an emergent condition develops. Condition: Stable Rao Camp Aug 15, 2017 12:22
== END 2017-08-15 13:35 | disposition left against medical advice (07) ==
LOC: NEPC 11:42
DX: R51 Headache (principal)
CPT/HCPCS: 99281